=== PATIENT | male | born 1955 | race Caucasian/White ===

== ENCOUNTER 2017-07-24 15:20 | Inpatient (IN) | payer OTHER ==
[~2017-07-24] VITALS: Ht 177.8 cm; Wt 77.0 kg
[2017-07-24] VITALS (15 sets, daily range): BP systolic 69–165; BP diastolic 42–99; PULSE 90–131; RESP 14–31; TEMP 95.2–98.8; O2SAT 92–100
[2017-07-24] MEDS ORDERED: SUCCINYLCHOLINE CHLORIDE 200 MG/10 ML VIAL ONE (15:22)
[2017-07-24] MEDS ORDERED: ETOMIDATE 20 MG/10 ML VIAL ONE (15:23)
[2017-07-24] MEDS ORDERED: PROPOFOL 1000 MG/100 ML INJ 100 ML ONE (15:31)
[2017-07-24] MEDS ORDERED: SUCCINYLCHOLINE CHLORIDE 100 MG/5 ML SYRINGE IV PUSH ONE (15:45)
[2017-07-24] MEDS ORDERED: HEPARIN SODIUM - IV 10,000 UNITS/10 ML VIAL IV PUSH ONE (15:45)
[2017-07-24] MEDS ORDERED: HEPARIN-D5W 25,000 U/250 ML 250 ML IV PRN (15:45)
[2017-07-24] MEDS ORDERED: SODIUM CHLORIDE 0.9% FLUSH 10 ML FLUSH IVF PRN (15:45)
[2017-07-24] MEDS ORDERED: ETOMIDATE 20 MG/10 ML VIAL IV PUSH ONE (15:45)
--- NOTE | 2017-07-24 15:57 | RADRPT ---
EXAM DATE/TIME: 07/24/2017 15:41 [facility] COMPARISON: No previous studies available for comparison. INDICATIONS : Chest pain. MEDICAL HISTORY : None. SURGICAL HISTORY : None. ENCOUNTER: Initial ACUITY: 1 day PAIN SCORE: Non-responsive. LOCATION: Bilateral chest FINDINGS: A single view of the chest demonstrates endotracheal tube in good position. NG coiled in stomach. Mil d interstitial prominence in the lungs may represent mild edema with minimal basilar atelectasis. No significant effusion. No pneumothorax. CONCLUSION: 1. Endotracheal tube and nasogastric tube in good position. Mild edema pattern with basilar atelectas is. Weston Farrar MD on July 24, 2017 at 15:55 Board Certified Radiologist. This report was verified electronically.
[2017-07-24] MEDS ORDERED: SODIUM CHLOR 0.9% 1000 ML INJ 1,000 ML IV ONE ×4 (16:00→18:00)
[2017-07-24] MEDS ORDERED: AMIODARONE INJ 150 MG in DEXTROSE 5% IN WATER 100ML INJ 100 ML IV ONE ×2 (16:12)
[2017-07-24] MEDS ORDERED: MAGNESIUM OXIDE 400 MG TAB PO PRN (16:30)
[2017-07-24] MEDS ORDERED: LORazepam 2 MG/ML VIAL IV PUSH PRN (16:30)
[2017-07-24] MEDS ORDERED: POTASSIUM CHLORIDE 25 MEQ EFFERVESCENT TAB PO PRN (16:30)
[2017-07-24] MEDS ORDERED: MIDAZOLAM 100 MG/100 ML INJ 100 ML IV PRN (16:30)
[2017-07-24] MEDS ORDERED: MIDAZOLAM HCL 2 MG/2 ML VIAL IV PUSH ONE (16:30)
[2017-07-24] MEDS ORDERED: POTASSIUM PHOSPHATE INJ 30 MMOL in SODIUM CHLOR 0.9% 250 ML INJ 250 ML IV PRN (16:30)
[2017-07-24] MEDS ORDERED: POTASSIUM PHOSPHATE MONOBASIC 500 MG TAB PO PRN (16:30)
[2017-07-24] MEDS ORDERED: VECURONIUM BROMIDE 10 MG VIAL IV PUSH ONE (16:30)
[2017-07-24] MEDS ORDERED: busPIRone HCL 5 MG TAB NG PRN (16:30)
[2017-07-24] MEDS ORDERED: MAGNESIUM SULFATE INJ 4 GM in SODIUM CHLORIDE 0.9% INJ 92 ML IV PRN (16:30)
[2017-07-24] MEDS ORDERED: MISCELLANEOUS NURSING INFORMATION XX SCH (16:30)
[2017-07-24] MEDS ORDERED: CHLORHEXIDINE GLUCONATE 2 % 1 PACK (2 CLOTHS) TOP PRN (16:30)
[2017-07-24] MEDS ORDERED: ARTIFICIAL TEARS OPTH OINT 3.5 APPLIC/3.5 GM TUBO EACH EYE PRN (16:30)
[2017-07-24] MEDS ORDERED: SODIUM CHLORIDE 0.9% FLUSH 10 ML FLUSH IV FLUSH PRN (16:30)
[2017-07-24] MEDS ORDERED: POTASSIUM PHOSPHATE MONOBASIC 500 MG TAB PO/TUBE PRN (16:30)
[2017-07-24] MEDS ORDERED: SODIUM PHOSPHATE INJ 30 MMOL in SODIUM CHLOR 0.9% 250 ML INJ 240 ML IV PRN (16:30)
[2017-07-24] MEDS ORDERED: fentaNYL DRIP 250 ML IV PRN (16:30)
[2017-07-24] MEDS ORDERED: CISATRACURIUM BESYLATE 20 MG/10 ML VIAL IV PUSH ONE (16:30)
[2017-07-24] MEDS ORDERED: POTASSIUM CHLOR 40 MEQ PREMIX 100 ML IV PRN ×2 (16:30)
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
[2017-07-24 16:43] LABS: AUTOMATED NEUTROPHIL # 7.4 TH/MM3 (1.8-7.7); BASOPHIL # 0.1 TH/MM3 (0-0.2); BASOPHIL % 0.4 % (0.0-2.0); EOSINOPHIL # 0.3 TH/MM3 (0-0.4); EOSINOPHIL % 1.9 % (0.0-4.0); HEMATOCRIT 44.4 % (39.0-51.0); LYMPH % 46.4 % (9.0-44.0); MEAN CELL VOLUME 85.1 FL (80.0-100.0); MEAN CORPUSCULAR HEMOGLOBIN 27.5 PG (27.0-34.0); MEAN CORPUSCULAR HGB CONC 32.4 % (32.0-36.0); MONO % 8.6 % (0.0-8.0); NEUT % 42.7 % (16.0-70.0); PLATELET COUNT 191 TH/MM3 (150-450); RED BLOOD COUNT 5.22 MIL/MM3 (4.50-5.90); RED CELL DISTRIBUTION WIDTH 15.7 % (11.6-17.2); WHITE BLOOD COUNT 17.3 TH/MM3 (4.0-11.0)
[2017-07-24 16:46] LABS: HEMO FLAGS AUTO DIFF
[2017-07-24 16:49] LABS: APTT (PATIENT) 29.4 SEC (24.3-30.1); PROTHROMBIN TIME - PATIENT 11.5 SEC (9.8-11.6)
[2017-07-24 17:06] LABS: BANDS 2 % (0-6); BICARBONATE 16.1 MEQ/L (21.0-32.0); EOSINOPHILS 3 % (0-4); NEUTROPHIL # MANUAL DIFF 8.5 TH/MM3 (1.8-7.7); PLATELET ESTIMATE SMEAR NORMAL (NORMAL); PLATELET MORPHOLOGY NORMAL (NORMAL); POLYS (SEG NEUTROPHILS) 47 % (16-70); POTASSIUM 3.4 MEQ/L (3.5-5.1); SCAN/DIFF FINAL DIFF MANUAL; WBC DIFF SAMPLE 100
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
[2017-07-24 17:25] LABS: CKMB 74.7 NG/ML (0.5-3.6); INDIRECT BILIRUBIN 0.4 MG/DL (0.0-0.8); TOTAL BILIRUBIN ADULT 0.5 MG/DL (0.2-1.0)
[2017-07-24] MEDS ORDERED: ASPIRIN 81 MG CHEW TAB OG-TUBE ONE (17:30)
[2017-07-24] MEDS ORDERED: GLUCAGON 1 MG/ML VIAL IM/SQ PRN (17:30)
--- NOTE | 2017-07-24 17:40 | RADRPT ---
EXAM DATE/TIME: 07/24/2017 17:17 [facility] COMPARISON: No previous studies available for comparison. INDICATIONS : Unresponsive. RADIATION DOSE: 39.71 CTDIvol (mGy) MEDICAL HISTORY : Non-responsive. SURGICAL HISTORY : Non-responsive. ENCOUNTER: Initial ACUITY: 1 day PAIN SCALE: Non-responsive LOCATION: cranial TECHNIQUE: Multiple contiguous axial images were obtained of the head. Using automated exposure control and adj ustment of the mA and/or kV according to patient size, radiation dose was kept as low as reasonably a chievable to obtain optimal diagnostic quality images. DICOM format image data is available electro nically for review and comparison. FINDINGS: CEREBRUM: The ventricles are normal for age. No evidence of midline shift, mass lesion, hemorrhage or acute in farction. No extra-axial fluid collections are seen. POSTERIOR FOSSA: The cerebellum and brainstem are intact. The 4th ventricle is midline. The cerebellopontine angle i s unremarkable. EXTRACRANIAL: The visualized portion of the orbits is intact. Maxillary sinusitis. SKULL: The calvaria is intact. No evidence of skull fracture. CONCLUSION: 1. No acute intracranial abnormalities. Bilateral maxillary and ethmoid sinusitis. 2. Remote lacunar infarct right caudate nucleus. Weston Farrar MD on July 24, 2017 at 17:36 Board Certified Radiologist. This report was verified electronically.
[2017-07-24] MEDS: NOREPINEPHRINE INJ 4 MG in SODIUM CHLOR 0.9% 250 ML INJ 246 ML IV PRN (19:00)
[2017-07-24] MEDS: PROPOFOL 1000 MG/100 ML INJ 100 ML IV PRN ×2 (19:00→23:14)
--- NOTE | 2017-07-24 19:29 | MB ---
cc: JULIO CESAR GOODMAN M.D. DATE OF CONSULTATION: 07/24/2017. HISTORY OF PRESENT ILLNESS: Stewart is a 61-year-old gentleman who per the ER report was driving in his car and had a witnessed arrest with fairly rapid onset of CPR by a water treatment operator; however, he was rapidly intubated in the emergency room. His mental status was not determined prior to intubation and sedation. The length of time between arrest and CPR is indeterminate as well. A further review of systems is obviously unobtainable as the patient is currently intubated and unresponsive due to sedation. Per the emergency room notes, the patient received 3 to 5 minutes of bystander CPR and that was noted to happen immediately after arrest. He was found to be in ventricular fibrillation. He was defibrillated x3. He was noted to have agonal respirations in the emergency room. The family noted that he had seizure-like activity after becoming unresponsive. He was noted to "not have any symptoms whatsoever" prior to the arrest. PAST MEDICAL HISTORY: Per family: 1. History of hypertension. 2. Insulin-dependent diabetes mellitus. SOCIAL HISTORY: Denies tobacco use per family. ALLERGIES: None per family. MEDICATIONS GIVEN IN THE EMERGENCY ROOM: 1. Aspirin 81 milligrams per OG tube. 2. Heparin bolus and drip. 3. Insulin. 4. IV. 5. IV Fentanyl. 6. Potassium supplementation. 7. Magnesium supplementation IV. 8. Sodium phosphate and potassium phosphate supplementation. 9. Amiodarone IV drip and bolus. 10. Propofol drip. PHYSICAL EXAMINATION: VITAL SIGNS: Pulse is 101, respiratory rate 18, blood pressure 84/53. GENERAL: He is intubated and sedated. NECK: The neck is supple. No jugular venous distention. No bruits. CARDIOVASCULAR EXAM: S1 and S2. No murmurs, rubs or gallops. LUNGS: Decreased breath sounds at the bases bilaterally. ABDOMEN: The abdomen is soft, nontender and nondistended with positive bowel sounds. EXTREMITIES: No lower extremity edema. IMAGING STUDIES: Chest x-ray shows mild edema pattern and with basilar atelectasis, endotracheal tube and nasogastric tube in good position. Head CT shows no acute intracranial abnormalities. Bilateral maxillary and ethmoid sinusitis, remote lacunar infarct right caudate nucleus. LABORATORY DATA: White count 17.3, hemoglobin 14.4, hematocrit 44.4, platelet count 191,000. Sodium 136, potassium 3.4, chloride 101, bicarbonate 16.1, BUN 18, creatinine 1.36, glucose 231, AST 149, ALT 3. Total CK 777 with a CK-MB percent of 9.6. Troponin is 16.80. Albumin is 3.3. INR 1.0. EKGS: EKG shows sinus tachycardia at 121 beats per minute. Corrected Q-T interval is 0.29 milliseconds. There is 45 mm of upsloping S-T segment depression in leads V1, V2, V3, V4, V5. There is 1 to 2 mm of S-T segment elevation in lead I, lead V6. DIAGNOSIS: He has the following diagnoses: 1. Cardiac arrest. 2. Ventricular fibrillation. 3. STEMI versus NSTEMI. 4. Altered mental status. 5. Seizure. 6. Insulin-dependent diabetes mellitus. 7. History of CVA. 8. Hypokalemia. 9. Acute renal failure versus chronic renal insufficiency and/or both. 10. Hyperglycemia. 11. Elevated liver function tests. 12. Elevated white count. DISCUSSION: At this point in time, the patient's mental status is indeterminate. He did have [id number] cardiac arrest. The exact time between arrest and initiation of CPR is unknown, although is stated to be immediately. A fiberglass auto body repairer happened to be at the scene as soon as the family pulled the car over. He was noted to have agonal breathing; however. I have discussed this with the ER doctor, , and recommended retail key holder consult for consideration of hypothermia protocol. I agree with aspirin and heparin. The patient is currently hypotensive and beta blockers and TRACIE inhibitors are contraindicated. Statins are contraindicated due to the elevated liver enzymes, which I suspect is due to shock liver. It is also possible that his elevated cardiac enzymes are due to defibrillation. Will need to follow trends. Recommend neurology consult. At this point, would treat medically until we know his exact mental status and also a full neurologic workup. If the patient develops further hemodynamic instability and/or recurrent ventricular fibrillation, could consider high-risk catheter intervention. Julio Cesar Goodman MD AWMadonna/EHSAN Bautista: 07/24/2017/6:34 PM /7:16 PM
--- NOTE | 2017-07-24 19:58 | PD.PROCEDR ---
Procedure Note Procedure Centerline placement A time-out was completed verifying correct patient, procedure, site, positioning , and special equipment if applicable. The patient was placed in a dependent position appropriate for central line placement based on the vein to be cannulated. The patients right groin was prepped and draped in sterile fashion. 1% Lidocaine was used to anesthetize the surrounding skin area. A triple lumen 9-English Cordis catheter was introduced into the the common femoral vein using the Seldinger technique and under ultrasound guidance. The catheter was threaded smoothly over the guide wire and appropriate blood return was obtained. Each lumen of the catheter was evacuated of air and flushed with sterile saline. The catheter was then sutured in place to the skin and a sterile dressing applied. Perfusion to the extremity distal to the point of catheter insertion was checked and found to be adequate. Estimated Blood Loss: 1ml The patient tolerated the procedure well and there were no complications. Tyrone Diaz MD Jul 24, 2017 19:58
--- NOTE | 2017-07-24 19:59 | PD.PROCEDR ---
Procedure Note Procedure Arterial line placement A time-out was completed verifying correct patient, procedure, site, positioning , and special equipment if applicable. Allens test was performed to ensure adequate perfusion. The patients right groin was prepped and draped in sterile fashion. 1% Lidocaine was used to anesthetize the area. A 18G Arrow arterial line was introduced into the femoral artery. The catheter was threaded over the guide wire and the needle was removed with appropriate pulsatile blood return. The catheter was then sutured in place to the skin and a sterile dressing applied. Perfusion to the extremity distal to the point of catheter insertion was checked and found to be adequate. Estimated Blood Loss: 1ml The patient tolerated the procedure well and there were no complications. Tyrone Diaz MD Jul 24, 2017 19:59
[2017-07-24] MEDS: INSULIN ASPART SUPPLEMENTAL SCALE SQ SCH (20:00)
[2017-07-24] MEDS: CISATRACURIUM INJ 100 MG in SODIUM CHLOR 0.9% 250 ML INJ 240 ML IV PRN (20:42)
[2017-07-24] MEDS: AMIODARONE INJ 450 MG in DEXTROSE 5% IN WATE(EXCEL) INJ 241 ML IV PRN ×2 (20:42)
--- NOTE | 2017-07-24 20:50 | EKG ---
Date Performed: 07/24/2017 Time Performed: 15:40:01 PTAGE: 61 years EKG: SINUS TACHYCARDIA ST/T-WAVE ABNORMALITY, CONSIDER ANTEROLATERAL ISCHEMIA HIGH LATERAL AND L ATERAL ST ELEVATION, CONSIDER ACUTE INJURY PATTERN NONSPECIFIC INTRAVENTRICULAR CONDUCTION DELAY ABNO RMAL ECG NO PREVIOUS TRACING DOCTOR: León Marte Interpretating Date/Time 07/24/2017 20:48:51
[2017-07-24] MEDS: INSULIN DETEMIR 100 UNITS/ML VIAL SQ SCH (21:00)
[2017-07-24] MEDS: SODIUM CHLORIDE 0.9% FLUSH 10 ML FLUSH IV FLUSH SCH (21:00)
[2017-07-24] MEDS ORDERED: HEPARIN SODIUM - IV 10,000 UNITS/10 ML VIAL IV PUSH PRN (21:45)
[2017-07-24] MEDS: fentaNYL DRIP 250 ML IV PRN (22:28)
[2017-07-24] MEDS: POTASSIUM CHLOR 20 MEQ PREMIX 100 ML IV PRN (22:29)
[2017-07-24] MEDS: MEPERIDINE HCL 25 MG/ML VIAL IV PUSH PRN (23:02)
[2017-07-25] VITALS (13 sets, daily range): BP systolic 81–131; BP diastolic 45–86; PULSE 48–60; RESP 14; TEMP 90–92; O2SAT 95–99
[2017-07-25] MEDS: POTASSIUM CHLOR 20 MEQ PREMIX 100 ML IV PRN (00:10)
[2017-07-25 00:14] LABS: BICARBONATE 23.5 MEQ/L (21.0-32.0); MAGNESIUM 1.6 MG/DL (1.5-2.5); POTASSIUM 3.5 MEQ/L (3.5-5.1)
[2017-07-25 01:34] LABS: BLOOD, URINE MOD (NEG); GLUCOSE,URINE 1000 mg/dL (NEG); KETONE, URINE 10 mg/dL (NEG); MUCUS URINE FEW /lpf (OCC); NITRITE,URINE NEG (NEG); URINE COLOR LIGHT-YELLOW (YELLW/STRAW)
[2017-07-25] MEDS: MAGNESIUM SULFATE INJ 2 GM in SODIUM CHLORIDE 0.9% INJ 96 ML IV PRN (01:38)
[2017-07-25] MEDS: HEPARIN-D5W 25,000 U/250 ML 250 ML IV PRN ×2 (02:52→23:11)
[2017-07-25] MEDS: INSULIN ASPART SUPPLEMENTAL SCALE SQ SCH ×6 (04:00→20:00)
[2017-07-25] MEDS: CHLORHEXIDINE GLUCONATE 2 % 1 PACK (2 CLOTHS) TOP SCH (04:00)
[2017-07-25 06:32] LABS: BLOOD GAS BASE EXCESS -6.9 mmol/L (-2-2); BLOOD GAS CARBOXYHEMOGLOBIN 7.6 % (0-4); BLOOD GAS HCO3 19 mmol/L (22-26); BLOOD GAS PCO2 41 mmHg (38-42); BLOOD GAS PO2 269 mmHg (61-120)
[2017-07-25 06:33] LABS: BLOOD GAS METHEMOGLOBIN 0.8 % (0-2); BLOOD GAS O2 HGB SATURATION 91 % (90-100); BLOOD GAS OXYGEN CONTENT 18.4 Vol % (12.0-20.0); BLOOD GAS TOTAL HGB 13.9 G/DL (12.0-16.0)
[2017-07-25 06:35] LABS: FIO2 100 %; TEMP CORR TO 98.6
[2017-07-25] MEDS: PROPOFOL 1000 MG/100 ML INJ 100 ML IV PRN ×3 (06:48→23:09)
[2017-07-25 07:15] LABS: ANION GAP 7 MEQ/L (5-15); BICARBONATE 21.1 MEQ/L (21.0-32.0); BLOOD UREA NITROGEN 21 MG/DL (7-18); CHLORIDE 107 MEQ/L (98-107); CREATINE KINASE 1902 U/L (39-308); GLOMERULAR FILTRATION RATE 112 ML/MIN (>89); POTASSIUM 4.8 MEQ/L (3.5-5.1); SODIUM (NA) 135 MEQ/L (136-145)
[2017-07-25] MEDS: SODIUM CHLORIDE 0.9% FLUSH 10 ML FLUSH IV FLUSH SCH ×2 (07:31→20:52)
[2017-07-25 07:46] LABS: CKMB 209.6 NG/ML (0.5-3.6)
[2017-07-25] MEDS: INSULIN DETEMIR 100 UNITS/ML VIAL SQ SCH ×2 (08:37→20:51)
[2017-07-25] MEDS: AMIODARONE INJ 450 MG in DEXTROSE 5% IN WATE(EXCEL) INJ 241 ML IV PRN ×4 (08:37→23:13)
[2017-07-25] MEDS: ASPIRIN 81 MG CHEW TAB OG-TUBE SCH (08:37)
[2017-07-25 09:01] LABS: APTT (PATIENT) 34.1 SEC (24.3-30.1)
[2017-07-25] MEDS: CISATRACURIUM INJ 100 MG in SODIUM CHLOR 0.9% 250 ML INJ 240 ML IV PRN (09:02)
[2017-07-25] MEDS: HEPARIN SODIUM - IV 10,000 UNITS/10 ML VIAL IV PUSH PRN ×3 (09:34→20:49)
[2017-07-25 13:17] LABS: BICARBONATE 19.6 MEQ/L (21.0-32.0); MAGNESIUM 1.8 MG/DL (1.5-2.5); POTASSIUM 4.7 MEQ/L (3.5-5.1)
[2017-07-25 13:33] LABS: CALCIUM-PROTEIN CORRECTED 7.5 MG/DL (8.5-10.1)
--- NOTE | 2017-07-25 13:47 | PD.CARD.PN ---
Subjective Subjective Remarks intubated, sedated Objective Medications Current Medications Medications (Trade) Dose Ordered Sig/Laxmi Route Start Time Stop Time Status Last Admin Propofol 100 ml @ 0 mls/hr TITRATE PRN IV 07/24/17 15:45 07/25/17 06:48 (Heparin Inj) 5,000 units UNSCH PRN IV PUSH 07/24/17 21:45 (Heparin Inj) 2,500 units UNSCH PRN IV PUSH 07/24/17 21:45 07/25/17 09:34 Amiodarone HCl 450 mg/Dextrose 250 ml @ 33.33 mls/ hr Q7H31M PRN IV 07/24/17 16:22 07/25/17 08:37 Heparin Sodium/ Dextrose 250 ml @ 9 mls/hr TITRATE PRN IV 07/24/17 16:45 07/25/17 02:52 (Ativan Inj) 1 mg Q1H PRN IV PUSH 07/24/17 16:30 Midazolam HCl 100 ml @ 2 mls/hr TITRATE PRN IV 07/24/17 16:30 Fentanyl Citrate 250 ml @ 5 mls/hr TITRATE PRN IV 07/24/17 16:30 07/24/17 22:28 (Demerol Inj) 25 mg Q2H PRN IV PUSH 07/24/17 16:30 07/24/17 23:02 (Buspar) 15 mg BID PRN NG 07/24/17 16:30 Cisatracurium Besylate 100 mg/ Sodium Chloride 250 ml @ 37.12 mls/ hr TITRATE PRN IV 07/24/17 17:00 07/25/17 09:02 (Lacrilube Opht Oint) 1 applic Q4H PRN EACH EYE 07/24/17 16:30 (NS Flush) 2 ml BID IV FLUSH 07/24/17 21:00 07/24/17 21:00 (NS Flush) 2 ml UNSCH PRN IV FLUSH 07/24/17 16:30 Miscellaneous Information 0 ml @ 0 mls/hr UNSCH IV 07/24/17 16:30 Norepinephrine Bitartrate 4 mg/ Sodium Chloride 250 ml @ 7.5 mls/hr TITRATE PRN IV 07/24/17 17:00 07/24/17 19:00 Miscellaneous Information 1 Q361D XX 07/24/17 16:30 (Chlorhexidine 2% Cloth) 3 pack Taper DAILY@04 TOP 07/25/17 04:00 07/21/18 03:59 07/25/17 04:00 (Chlorhexidine 2% Cloth) 3 pack UNSCH PRN TOP 07/24/17 16:30 Potassium Chloride 100 ml @ 50 mls/hr Q2H PRN IV 07/24/17 16:30 Potassium Chloride 100 ml @ 50 mls/hr Q2H PRN IV 07/24/17 16:30 (K-Lyte Cl Eff) 50 meq UNSCH PRN PO 07/24/17 16:30 Potassium Chloride 100 ml @ 25 mls/hr UNSCH PRN IV 07/24/17 16:30 Potassium Chloride 100 ml @ 50 mls/hr Q2H PRN IV 07/24/17 16:30 07/25/17 00:10 Magnesium Sulfate 4 gm/Sodium Chloride 100 ml @ 50 mls/hr UNSCH PRN IV 07/24/17 16:30 (Mag-Ox) 800 mg UNSCH PRN PO 07/24/17 16:30 Magnesium Sulfate 2 gm/Sodium Chloride 100 ml @ 50 mls/hr UNSCH PRN IV 07/24/17 16:30 07/25/17 01:38 (K-Phos) 2,000 mg Q4H PRN PO 07/24/17 16:30 Sodium Phosphate 30 mmol/Sodium Chloride 250 ml @ 42 mls/hr UNSCH PRN IV 07/24/17 16:30 (K-Phos) 2,000 mg UNSCH PRN PO/TUBE 07/24/17 16:30 Potassium Phosphate 30 mmol/ Sodium Chloride 260 ml @ 42 mls/hr UNSCH PRN IV 07/24/17 16:30 (Aspirin Chew) 81 mg DAILY OG-TUBE 07/25/17 09:00 07/25/17 08:37 (Levemir Inj) 5 units Q12HR SQ 07/24/17 21:00 07/25/17 08:37 (NovoLOG SUPPLEMENTAL SCALE) 1 Q4HR SQ 07/24/17 20:00 (D50w (Vial) Inj) 25 ml UNSCH PRN IV 07/24/17 17:30 (Glucagon Inj) 1 mg UNSCH PRN IM/SQ 07/24/17 17:30 Vital Signs / I&O Vital Signs Date Time Temp Pulse Resp B/P (MAP) Pulse Ox O2 Delivery O2 Flow Rate FiO2 07/25/17 11:00 90.2 59 14 123/86 (98) 96 131/70 (90) 07/25/17 11:00 40 07/25/17 11:00 57 07/25/17 11:00 96 Mechanical Ventilator 40 07/25/17 10:31 95 40 07/25/17 08:37 63 119/67 07/25/17 07:55 95 40 07/25/17 07:00 90.4 59 14 104/77 (86) 95 108/61 (77) 07/25/17 07:00 95 Mechanical Ventilator 40 07/25/17 07:00 40 07/25/17 07:00 57 07/25/17 04:10 97 40 07/25/17 03:00 90.0 60 14 93/73 (80) 95 103/63 (76) 07/25/17 03:00 58 07/25/17 03:00 40 07/25/17 03:00 95 Mechanical Ventilator 40 07/25/17 02:30 62 119/69 07/25/17 00:58 97 40 07/24/17 23:00 40 07/24/17 23:00 95.2 93 14 136/85 (102) 94 165/85 (111) 07/24/17 23:00 94 Mechanical Ventilator 40 07/24/17 23:00 90 07/24/17 22:03 99 40 07/24/17 20:42 104 120/82 07/24/17 20:40 101 123/77 07/24/17 20:30 94 40 07/24/17 20:20 110/75 07/24/17 19:45 134/82 07/24/17 19:20 70/52 07/24/17 19:10 69/52 07/24/17 19:00 40 07/24/17 19:00 98 Mechanical Ventilator 40 07/24/17 19:00 90 07/24/17 19:00 98.4 99 14 69/49 (56) 98 07/24/17 19:00 99 69/49 07/24/17 18:30 96 40 07/24/17 18:10 99 100 07/24/17 17:20 103 111/68 (82) 95 07/24/17 17:16 104 97/68 (78) 97 07/24/17 17:08 101 88/55 (66) 97 07/24/17 16:30 101 18 84/53 (63) 100 Ventilator 07/24/17 15:50 114 75/42 (53) 95 07/24/17 15:42 99 40 07/24/17 15:40 100 40 07/24/17 15:35 Ventilator 07/24/17 15:28 127 31 156/99 (118) 92 07/24/17 15:27 100 07/24/17 15:20 98.8 131 16 110/62 (78) 95 I/O 07/24/17 07/24/17 07/24/17 07/25/17 07/25/17 07/25/17 07:00 15:00 23:00 07:00 15:00 23:00 Intake Total 91 ml 1819 ml Output Total 2115 ml Balance 91 ml -296 ml Intake IV Total 91 ml 1819 ml Output Urine Total 2115 ml # Bowel Movements 2 Laboratory GENERAL: SKIN: Warm and dry. HEAD: Normocephalic. EYES: No scleral icterus. No injection or drainage. NECK: Supple, trachea midline. No JVD or lymphadenopathy. CARDIOVASCULAR: Regular rate and rhythm without murmurs, gallops, or rubs. RESPIRATORY: Breath sounds equal bilaterally. No accessory muscle use. GASTROINTESTINAL: Abdomen soft, non-tender, nondistended. MUSCULOSKELETAL: No cyanosis, or edema. BACK: Nontender without obvious deformity. No CVA tenderness. Laboratory Tests Test 07/24/17 16:00 07/24/17 16:30 07/24/17 21:54 07/24/17 23:37 White Blood Count 17.3 TH/MM3 Red Blood Count 5.22 MIL/MM3 Hemoglobin 14.4 GM/DL Hematocrit 44.4 % Mean Corpuscular Volume 85.1 FL Mean Corpuscular Hemoglobin 27.5 PG Mean Corpuscular Hemoglobin Concent 32.4 % Red Cell Distribution Width 15.7 % Platelet Count 191 TH/MM3 Mean Platelet Volume 9.2 FL Neutrophils (%) (Auto) 42.7 % Lymphocytes (%) (Auto) 46.4 % Monocytes (%) (Auto) 8.6 % Eosinophils (%) (Auto) 1.9 % Basophils (%) (Auto) 0.4 % Neutrophils # (Auto) 7.4 TH/MM3 Lymphocytes # (Auto) 8.0 TH/MM3 Monocytes # (Auto) 1.5 TH/MM3 Eosinophils # (Auto) 0.3 TH/MM3 Basophils # (Auto) 0.1 TH/MM3 CBC Comment AUTO DIFF Differential Total Cells Counted 100 Neutrophils % (Manual) 47 % Band Neutrophils % 2 % Lymphocytes % 42 % Monocytes % 6 % Eosinophils % 3 % Neutrophils # (Manual) 8.5 TH/MM3 Differential Comment FINAL DIFF MANUAL Platelet Estimate NORMAL Platelet Morphology Comment NORMAL Red Cell Morphology Comment NORMAL Prothrombin Time 11.5 SEC Prothromb Time International Ratio 1.0 RATIO Activated Partial Thromboplast Time 29.4 SEC Blood Urea Nitrogen 18 MG/DL 22 MG/DL Creatinine 1.36 MG/DL 0.83 MG/DL Random Glucose 231 MG/DL 136 MG/DL Total Protein 6.5 GM/DL Albumin 3.3 GM/DL Calcium Level 8.5 MG/DL 8.0 MG/DL Magnesium Level 2.0 MG/DL 1.6 MG/DL Alkaline Phosphatase 101 U/L Aspartate Amino Transf (AST/SGOT) 149 U/L Alanine Aminotransferase (ALT/SGPT) 83 U/L Total Bilirubin 0.5 MG/DL Direct Bilirubin 0.1 MG/DL Sodium Level 136 MEQ/L 138 MEQ/L Potassium Level 3.4 MEQ/L 3.5 MEQ/L Chloride Level 101 MEQ/L 106 MEQ/L Carbon Dioxide Level 16.1 MEQ/L 23.5 MEQ/L Anion Gap 19 MEQ/L 9 MEQ/L Estimat Glomerular Filtration Rate 54 ML/MIN 95 ML/MIN Indirect Bilirubin 0.4 MG/DL Total Creatine Kinase 777 U/L Creatine Kinase MB 74.7 NG/ML Creatine Kinase MB % 9.6 % Troponin I 16.80 NG/ML Blood Gas Puncture Site Blood Gas Patient Temperature 98.6 Blood Gas HCO3 19 mmol/L Blood Gas Base Excess -6.9 mmol/L Blood Gas Oxygen Saturation 91 % Arterial Blood pH 7.28 Arterial Blood Partial Pressure CO2 41 mmHg Arterial Blood Partial Pressure O2 269 mmHg Arterial Blood Oxygen Content 18.4 Vol % Arterial Blood Carboxyhemoglobin 7.6 % Arterial Blood Methemoglobin 0.8 % Blood Gas Hemoglobin 13.9 G/DL Blood Gas Inspired Oxygen 100 % Lactic Acid Level 0.8 mmol/L Phosphorus Level 2.8 MG/DL Test 07/25/17 01:02 07/25/17 01:05 07/25/17 06:10 07/25/17 08:25 Nasal Screen MRSA (PCR) MRSA DETECTED Urine Color LIGHT-YELLOW Urine Turbidity CLEAR Urine pH 5.0 Urine Specific [place] 1.015 Urine Protein NEG mg/dL Urine Glucose (UA) 1000 mg/dL Urine Ketones 10 mg/dL Urine Occult Blood MOD Urine Nitrite NEG Urine Bilirubin NEG Urine Urobilinogen LESS THAN 2.0 MG/DL Urine Leukocyte Esterase NEG Urine RBC 1 /hpf Urine WBC LESS THAN 1 /hpf Urine Mucus FEW /lpf Urine Opiates Screen NEG Urine Barbiturates Screen NEG Urine Amphetamines Screen NEG Urine Benzodiazepines Screen NEG Urine Cocaine Screen POS Urine Cannabinoids Screen NEG Blood Urea Nitrogen 21 MG/DL Creatinine 0.72 MG/DL Random Glucose 148 MG/DL Calcium Level 7.6 MG/DL Magnesium Level 2.0 MG/DL Sodium Level 135 MEQ/L Potassium Level 4.8 MEQ/L Chloride Level 107 MEQ/L Carbon Dioxide Level 21.1 MEQ/L Anion Gap 7 MEQ/L Estimat Glomerular Filtration Rate 112 ML/MIN Total Creatine Kinase 1902 U/L Creatine Kinase MB 209.6 NG/ML Creatine Kinase MB % 11.0 % Troponin I GREATER THAN 40.00 NG/ML Activated Partial Thromboplast Time 34.1 SEC Test 07/25/17 12:15 Blood Urea Nitrogen 21 MG/DL Creatinine 0.70 MG/DL Random Glucose 131 MG/DL Total Protein 6.5 GM/DL Calcium Level 7.2 MG/DL Magnesium Level 1.8 MG/DL Sodium Level 136 MEQ/L Potassium Level 4.7 MEQ/L Chloride Level 107 MEQ/L Carbon Dioxide Level 19.6 MEQ/L Anion Gap 9 MEQ/L Estimat Glomerular Filtration Rate 115 ML/MIN Protein Corrected Calcium 7.5 MG/DL Imaging Last [address] 07/24/17 1542 Signed Impressions: Service Date/Time: Monday, July 24, 2017 17:17 - CONCLUSION: 1. No acute intracranial abnormalities. Bilateral maxillary and ethmoid sinusitis. 2. Remote lacunar infarct right caudate nucleus. Weston Farrar MD Chest X-Ray 07/24/17 1531 Signed Impressions: Service Date/Time: Monday, July 24, 2017 15:41 - CONCLUSION: 1. Endotracheal tube and nasogastric tube in good position. Mild edema pattern with basilar atelectasis. Weston Farrar MD Assessment and Plan Problem List: (1) Cardiac arrest ICD Codes: I46.9 - Cardiac arrest, cause unspecified Status: Acute (2) Seizure disorder ICD Codes: G40.909 - Epilepsy, unspecified, not intractable, without status epilepticus (3) Ventricular fibrillation ICD Codes: I49.01 - Ventricular fibrillation (4) NSTEMI (non-ST elevated myocardial infarction) ICD Codes: I21.4 - Non-ST elevation (NSTEMI) myocardial infarction Assessment and Plan 1.) Cardiac arrest - uncertain neurologic status, hemodyamically and electrically stable since admit, on cooling protocol, continue aspirin, iv heparin, f/u neuro recs, 2d echo Julio Cesar Rankin MD Jul 25, 2017 13:47
--- NOTE | 2017-07-25 14:11 | HHI.CCPN ---
Subjective Remarks/Hospital Course 07/24: 61-year-old male with medical history significant for hypertension, insulin-dependent diabetes mellitus who was in his usual state of health today. While being driven by a family member he suddenly became unresponsive with a seizure. He was taken out of his car and had bystander CPR for 3-5 minutes by supervisor inspection department who happened to be around. On EMS arrival patient was noted to be in V. fib arrest. He underwent DC shock 3 following which she had return of spontaneous circulation. He was having spontaneous respirations which were agonal and he is brought to the ER by EMS. Patient was comatose with GCS of 3 per documentation and did not appear to be protecting his airway hence was intubated for airway protection and placed on mechanical ventilation in the ER. He did receive it, date and succinylcholine for intubation. He was subsequently initiated on propofol for sedation as he was fighting the ventilator however dropped his blood pressure hence propofol was held. Dr. Rankin from cardiology was contacted regarding V. fib arrest and did not want to proceed with cardiac catheterization at that time. Critical care medicine was contacted to see if patient was a candidate for therapeutic hypothermia. I came to the ER and evaluated the patient immediately on being notified. His labs and head CT were pending at the time of my evaluation. Patient was comatose off propofol not responding to painful stimuli intubated on mechanical ventilation. Per family patient was absolutely asymptomatic prior to becoming unresponsive. History was obtained by reviewing records and discussion with ER physician. 07/25: Patient remains on therapeutic hypothermia protocol. Urine drug screen resulted at 1 AM and was positive for cocaine though family had denied any drug use to ER physician. Objective Vital Signs Date Time Temp Pulse Resp B/P (MAP) Pulse Ox O2 Delivery O2 Flow Rate FiO2 07/25/17 11:00 90.2 59 14 123/86 (98) 96 131/70 (90) 07/25/17 11:00 40 07/25/17 11:00 Mechanical Ventilator Intake and Output 07/25/17 07/25/17 07/26/17 08:00 16:00 00:00 Intake Total 1757 ml Output Total 2115 ml Balance -358 ml Result Diagram: 07/24/17 1600 07/25/17 1215 Other Results Laboratory Tests Test 07/24/17 16:30 Blood Gas Puncture Site Blood Gas Patient Temperature 98.6 Blood Gas HCO3 19 mmol/L (22-26) Blood Gas Base Excess -6.9 mmol/L (-2-2) Blood Gas Oxygen Saturation 91 % (90-100) Arterial Blood pH 7.28 (7.380-7.420) Arterial Blood Partial Pressure CO2 41 mmHg (38-42) Arterial Blood Partial Pressure O2 269 mmHg (61-120) Arterial Blood Oxygen Content 18.4 Vol % (12.0-20.0) Arterial Blood Carboxyhemoglobin 7.6 % (0-4) Arterial Blood Methemoglobin 0.8 % (0-2) Blood Gas Hemoglobin 13.9 G/DL (12.0-16.0) Blood Gas Inspired Oxygen 100 % Imaging Chest x-ray portable which was personally reviewed: ET tube above albetr, lung danielle appear clear with no obvious infiltrates. Head CT pending at the time of this dictation Objective Remarks HEENT/ Neuro: Sedated, orally intubated on neuromuscular blockade, pupils 3 mm bilaterally sluggishly reacting to light, orally intubated, no pallor, no icterus, tongue/ mucosa moist Neck: No JVD Chest/Pulm: on mech vent, good air entry bilaterally, no wheezing or crackles CVS: S1-S2 regular, no murmur GI/abdomen: soft, nontender, bowel sounds sluggish Extremities: Cool bilaterally, no edema Urinary Catheter: Yes Assessment to: Continue A/P Assessment and Plan 61-year-old male with: Out of hospital V. fib arrest status post CPR Non-ST elevation IL: Possibly related to cocaine use Acute respiratory failure on mechanical ventilation Hypotension Insulin-dependent diabetes mellitus Encephalopathy Cocaine positive Plan: Neuro: Continue therapeutic hypothermia protocol in view of concern for anoxic encephalopathy. Follow neuro checks. Follow therapeutic hypothermia protocol. Propofol/fentanyl for sedation as needed. Nimbex for neuromuscular blockade as needed to prevent shivering. Patient tested positive for cocaine. Cardiovascular: Receiving 1 L normal saline bolus in the ER for hypotension. Levophed for pressor support if needed. Troponin greater than 40. Cardiology consult with Dr. Rankin. ED physician is already spoken with Dr. Rankin following V. fib arrest and he is not planning cardiac catheterization at this time. If head CT negative for bleed will initiate aspirin and continue heparin gtt, ASA. Continue amiodarone gtt. Pulmonary: Continue mechanical ventilation, vent bundle, bronchodilators as needed. GI/liver: Nothing by mouth for now. OG tube to be placed to low intermittent wall suction. Renal/: IV hydration, strict intake output, monitor and replete electro lites , follow BUN creatinine. ID: No indication for antibiotics at this time. Heme: Follow CBC and coags. Endocrine: Continue Levemir 5 units subcutaneously every 12 hourly along with sliding scale insulin in view of insulin-dependent diabetes mellitus. If needed we will initiate insulin drip for glycemic control. Prophylaxis: Pepcid/SCDs. Anticoagulation with heparin. Condition critical. Status post cardiac arrest with concern for anoxic encephalopathy on therapeutic hypothermia protocol with non-ST elevation IL, cocaine positive. Time spent on critical care excluding procedures: 35 minutes Rip Curtis MD Jul 25, 2017 14:11
[2017-07-25] MEDS: NOREPINEPHRINE INJ 4 MG in SODIUM CHLOR 0.9% 250 ML INJ 246 ML IV PRN ×2 (15:00→21:03)
[2017-07-25 15:36] LABS: APTT (PATIENT) 34.2 SEC (24.3-30.1)
[2017-07-25 18:59] LABS: AUTOMATED NEUTROPHIL # 12.8 TH/MM3 (1.8-7.7); BASOPHIL # 0.1 TH/MM3 (0-0.2); BASOPHIL % 0.4 % (0.0-2.0); EOSINOPHIL % 0.2 % (0.0-4.0); HEMATOCRIT 42.2 % (39.0-51.0); HEMO FLAGS DIFF FINAL; LYMPHOCYTE # 1.1 TH/MM3 (1.0-4.8); MEAN CELL VOLUME 83.7 FL (80.0-100.0); MEAN CORPUSCULAR HEMOGLOBIN 27.5 PG (27.0-34.0); MEAN CORPUSCULAR HGB CONC 32.9 % (32.0-36.0); MONO % 9.1 % (0.0-8.0); NEUT % 83.3 % (16.0-70.0); PLATELET COUNT 209 TH/MM3 (150-450); RED BLOOD COUNT 5.04 MIL/MM3 (4.50-5.90); RED CELL DISTRIBUTION WIDTH 16.1 % (11.6-17.2); WHITE BLOOD COUNT 15.4 TH/MM3 (4.0-11.0)
[2017-07-25 19:28] LABS: BICARBONATE 18.9 MEQ/L (21.0-32.0); MAGNESIUM 1.8 MG/DL (1.5-2.5); POTASSIUM 4.7 MEQ/L (3.5-5.1)
[2017-07-25 19:50] LABS: CALCIUM-PROTEIN CORRECTED 7.6 MG/DL (8.5-10.1)
[2017-07-25] MEDS: MEPERIDINE HCL 25 MG/ML VIAL IV PUSH PRN (20:51)
--- NOTE | 2017-07-25 21:02 | MB ---
cc: PROSPER KEMP MD DATE OF CONSULTATION: 07/25/2017 REASON FOR CONSULTATION: IMS status post cardiac arrest. HISTORY OF PRESENT ILLNESS Mr. Esparza is a 61-year-old male who was intubated and sedated during the encounter, thus medical history is obtained from registered nurse and medical records. He has past medical history of hypertension, insulin- dependent diabetes mellitus. He was witnessed by a family member to become unresponsive with a seizure. CPR was instituted by a bystander. Upon EMS arrival the patient was in ventricular fibrillation arrest. He was resuscitated with return of spontaneous circulation and breathing was agonal. He was brought to [facility] Emergency Room, was comatose and was unable to protect his airway and he was intubated and ventilated. Neurology is consulted to assess in the current neurologic status. The patient is currently undergoing therapeutic hypothermia protocol and of note UDS was positive for cocaine, though family denied drug abuse. REVIEW OF SYSTEMS Unable to obtain, however, according to the medical record review 12-point review of systems is negative except for what is stated in the HPI. PAST MEDICAL HISTORY 1. Hypertension 2. Insulin dependent diabetes mellitus. SOCIAL HISTORY As per family denies tobacco and drug abuse. ALLERGIES As per medical record review, none. FAMILY HISTORY Noncontributory ALLERGIES No known allergies. PAST SURGICAL HISTORY Unavailable. REPORTED MEDICATIONS: Medications to be reviewed in the medical records. PHYSICAL EXAMINATION The patient is intubated and sedated. HEENT: Atraumatic, normocephalic. Pupils 3 mm bilaterally, reacting to light. Neck: No JVD. Respiratory: Mechanical ventilator. Good air entry. No wheezes. Cardiovascular: Regular rate and rhythm. GI: Soft abdomen. Extremities: No edema. No cyanosis. Neurologic: Intubated, sedated. Pupils 3 mm sluggishly reactive to light. No gaze deviation. Plantars bilateral mute. LABORATORY DATA White blood cells 70.3, hemoglobin 14.4, platelet 191. Sodium 137, potassium 4.7, anion gap 10, BUN 23, creatinine 0.85, lactic acid 0.8, random glucose 164 , calcium 7, magnesium 1.8. CK 1902, troponin greater than 40, total protein 6 , INR 1. UDS positive for cocaine. 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 DIAGNOSTIC IMPRESSION 1. Encephalopathy. Possible etiology is hypoxic/metabolic encephalopathy secondary to cardiac arrest, status post V-fib arrest, status post CPR. 2. Acute respiratory failure, currently on mechanical ventilation. 3. Insulin-dependent diabetes mellitus. PLAN: - Neuro checks q. one hourly. - Continue supportive medical therapy and therapeutic hypothermia protocol. - At this time with the patient is sedated, paralyzed and intubated, thus, making the neurological assessment less accurate. Further neurological evaluation can be done after completion of the hypothermia protocol which should be tonight at midnight and if the patient does not show signs of neurologic recovery, then further neurologic assessment, evaluation and workup may be needed. - Please call for questions. Thank you for the opportunity to participate in the care of your patient. MD LUANA Carmona/CONNIE /8:29 PM /8:44 PM CASSIE
[2017-07-26] VITALS (12 sets, daily range): BP systolic 104–135; BP diastolic 58–79; PULSE 60–95; RESP 12–14; TEMP 94–99; O2SAT 89–99
[2017-07-26] MEDS: INSULIN ASPART SUPPLEMENTAL SCALE SQ SCH ×6 (00:27→20:00)
[2017-07-26] MEDS: MEPERIDINE HCL 25 MG/ML VIAL IV PUSH PRN ×3 (00:28→10:47)
[2017-07-26 01:26] LABS: BICARBONATE 18.6 MEQ/L (21.0-32.0); MAGNESIUM 1.6 MG/DL (1.5-2.5); POTASSIUM 4.3 MEQ/L (3.5-5.1)
[2017-07-26 01:39] LABS: CALCIUM-PROTEIN CORRECTED 7.8 MG/DL (8.5-10.1)
[2017-07-26] MEDS: MAGNESIUM SULFATE INJ 2 GM in SODIUM CHLORIDE 0.9% INJ 96 ML IV PRN (02:23)
[2017-07-26] MEDS: CHLORHEXIDINE GLUCONATE 2 % 1 PACK (2 CLOTHS) TOP SCH (04:00)
[2017-07-26] MEDS: fentaNYL DRIP 250 ML IV PRN (04:08)
[2017-07-26 04:13] LABS: AUTOMATED NEUTROPHIL # 14.4 TH/MM3 (1.8-7.7); BASOPHIL % 0.3 % (0.0-2.0); EOSINOPHIL % 0.1 % (0.0-4.0); HEMATOCRIT 42.6 % (39.0-51.0); HEMO FLAGS DIFF FINAL; LYMPH % 5.7 % (9.0-44.0); MEAN CELL VOLUME 83.2 FL (80.0-100.0); MEAN CORPUSCULAR HEMOGLOBIN 26.8 PG (27.0-34.0); MEAN CORPUSCULAR HGB CONC 32.2 % (32.0-36.0); MONO % 7.5 % (0.0-8.0); NEUT % 86.4 % (16.0-70.0); PLATELET COUNT 207 TH/MM3 (150-450); RED BLOOD COUNT 5.13 MIL/MM3 (4.50-5.90); RED CELL DISTRIBUTION WIDTH 16.2 % (11.6-17.2); WHITE BLOOD COUNT 16.7 TH/MM3 (4.0-11.0)
[2017-07-26] MEDS: NOREPINEPHRINE INJ 4 MG in SODIUM CHLOR 0.9% 250 ML INJ 246 ML IV PRN (04:13)
[2017-07-26 04:19] LABS: APTT (PATIENT) 31.5 SEC (24.3-30.1)
[2017-07-26 04:48] LABS: BICARBONATE 20.5 MEQ/L (21.0-32.0); CALCIUM-PROTEIN CORRECTED 7.5 MG/DL (8.5-10.1); TOTAL BILIRUBIN ADULT 0.5 MG/DL (0.2-1.0)
[2017-07-26] MEDS: PROPOFOL 1000 MG/100 ML INJ 100 ML IV PRN ×2 (05:01→08:51)
[2017-07-26] MEDS: HEPARIN SODIUM - IV 10,000 UNITS/10 ML VIAL IV PUSH PRN ×2 (05:21→12:40)
--- NOTE | 2017-07-26 05:29 | RADRPT ---
EXAM DATE/TIME: 07/26/2017 03:53 [place] COMPARISON: CHEST SINGLE AP, July 24, 2017, 15:41. INDICATIONS : Short of breath. MEDICAL HISTORY : None. SURGICAL HISTORY : None. ENCOUNTER: Initial ACUITY: 1 day PAIN SCORE: 0/10 LOCATION: Bilateral chest FINDINGS: There is some motion during the seen throughout the study. ET tube tip is 3.9 cm from the albert. The NG tube is directed into the stomach. There some mild increased density in the right upper lung. A s ignificant effusion is not seen. There is a tube seen over the medial right upper abdomen which could be central in place from the femoral approach. CONCLUSION: Right upper lobe mild consolidation or atelectasis. Hipolito Strickland MD on July 26, 2017 at 5:25 Board Certified Radiologist. This report was verified electronically.
[2017-07-26] MEDS ORDERED: NOREPINEPHRINE INJ 4 MG in SODIUM CHLOR 0.9% 250 ML INJ 246 ML IV PRN (06:15)
[2017-07-26] MEDS: ASPIRIN 81 MG CHEW TAB OG-TUBE SCH (08:50)
[2017-07-26] MEDS: INSULIN DETEMIR 100 UNITS/ML VIAL SQ SCH ×2 (09:00→21:00)
[2017-07-26] MEDS: SODIUM CHLORIDE 0.9% FLUSH 10 ML FLUSH IV FLUSH SCH ×2 (09:00→21:09)
[2017-07-26] MEDS ORDERED: methylPREDNISolone SOD SUCC 125 MG/2 ML VIAL ONE (10:21)
[2017-07-26] MEDS ORDERED: methylPREDNISolone SOD SUCC 125 MG/2 ML VIAL IV PUSH ONE (10:45)
[2017-07-26] MEDS: DEXTROSE 50% IN WATER 50 ML VIAL(D50) IV PRN ×2 (11:41→11:59)
[2017-07-26 12:17] LABS: APTT (PATIENT) 34.5 SEC (24.3-30.1)
[2017-07-26] MEDS: HEPARIN-D5W 25,000 U/250 ML 250 ML IV PRN ×2 (12:36→15:25)
[2017-07-26] MEDS ORDERED: RESP: ALBUTEROL 2.5 MG/IPRATROPIUM 0.5 MG NEB (PRN) NEB (12:45)
[2017-07-26] MEDS ORDERED: BUMETANIDE INJ 1 MG/4 ML VIAL IV PUSH STA (12:47)
--- NOTE | 2017-07-26 13:11 | HHI.CCPN ---
Subjective Remarks/Hospital Course 07/24: 61-year-old male with medical history significant for hypertension, insulin-dependent diabetes mellitus who was in his usual state of health today. While being driven by a family member he suddenly became unresponsive with a seizure. He was taken out of his car and had bystander CPR for 3-5 minutes by safety teacher who happened to be around. On EMS arrival patient was noted to be in V. fib arrest. He underwent DC shock 3 following which she had return of spontaneous circulation. He was having spontaneous respirations which were agonal and he is brought to the ER by EMS. Patient was comatose with GCS of 3 per documentation and did not appear to be protecting his airway hence was intubated for airway protection and placed on mechanical ventilation in the ER. He did receive it, date and succinylcholine for intubation. He was subsequently initiated on propofol for sedation as he was fighting the ventilator however dropped his blood pressure hence propofol was held. Dr. Rankin from cardiology was contacted regarding V. fib arrest and did not want to proceed with cardiac catheterization at that time. Critical care medicine was contacted to see if patient was a candidate for therapeutic hypothermia. I came to the ER and evaluated the patient immediately on being notified. His labs and head CT were pending at the time of my evaluation. Patient was comatose off propofol not responding to painful stimuli intubated on mechanical ventilation. Per family patient was absolutely asymptomatic prior to becoming unresponsive. History was obtained by reviewing records and discussion with ER physician. 07/25: Patient remains on therapeutic hypothermia protocol. Urine drug screen resulted at 1 AM and was positive for cocaine though family had denied any drug use to ER physician. 07/26: Patient completed therapeutic hypothermia protocol. He was awake and alert on lightening sedation and following commands. Underwent C Pap trials which he tolerated well and was subsequently extubated. He is requiring 15 L O2 currently. Received 1 dose of Solu-Medrol 125 mg IV in view of history of heavy smoking for suspected COPD contributing to respiratory failure. He is otherwise awake and alert, following commands following extubation. Patient's tells me that he had remote history of cocaine use however is not aware of any recent cocaine use. Objective Vital Signs Date Time Temp Pulse Resp B/P (MAP) Pulse Ox O2 Delivery O2 Flow Rate FiO2 07/26/17 11:00 95 Partial Non-Rebreather 15.00 07/26/17 11:00 98.8 92 12 120/68 (85) 07/26/17 07:30 40 Intake and Output 07/26/17 07/26/17 07/27/17 08:00 16:00 00:00 Intake Total 3415 ml Output Total 1940 ml Balance 1475 ml Result Diagram: 07/26/17 0330 07/26/17 0330 Imaging Chest x-ray portable which was personally reviewed: ET tube above albert, lung danielle appear clear with no obvious infiltrates. Head CT pending at the time of this dictation Objective Remarks HEENT/ Neuro: Awake, alert, following commands, moving all 4 extremities, no pallor, tongue/ mucosa moist Neck: No JVD Chest/Pulm: good air entry bilaterally, scattered rhonchi, no wheezing or crackles CVS: S1-S2 regular, no murmur GI/abdomen: soft, nontender, bowel sounds sluggish Extremities: Warm bilaterally, no edema A/P Assessment and Plan 61-year-old male with: Out of hospital V. fib arrest status post CPR Non-ST elevation FL: Possibly related to cocaine use Acute respiratory failure Suspected COPD exacerbation Hypotension Insulin-dependent diabetes mellitus Encephalopathy Cocaine positive Plan: Neuro: Completed therapeutic hypothermia protocol. Follow neuro checks. Off all sedation, just extubated. Patient tested positive for cocaine. Cardiovascular: Receiving 1 L normal saline bolus in the ER for hypotension. Levophed for pressor support if needed. Troponin greater than 40. Cardiology consult with Dr. Rankin. ED physician is already spoken with Dr. Rankin following V. fib arrest and he is not planning cardiac catheterization at this time. Continue aspirin and continue heparin gtt, ASA. Continue amiodarone gtt. titrated off Levophed following extubation. Check BNP. Bumex 1 mg IV 1 dose now in view of respiratory failure with high O2 requirement. Pulmonary: Extubated following C Pap trial. Requiring 15 L O2 per minute, bronchodilators as needed. Started on Solu-Medrol. Bumex 1 mg IV 1 dose. GI/liver: Advance by mouth if respiratory status improves. Renal/: Strict intake output, monitor and replete electrolites, follow BUN creatinine. Bumex 1 mg IV 1 dose on 07/26 ID: Start Levaquin for empiric antibiotic coverage in view of suspected COPD exacerbation Heme: Follow CBC and coags. On anticoagulation with heparin for acute FL. Endocrine: Continue Levemir 5 units subcutaneously every 12 hourly along with sliding scale insulin in view of insulin-dependent diabetes mellitus. If needed we will initiate insulin drip for glycemic control. Prophylaxis: Pepcid/SCDs. Anticoagulation with heparin. Updated patient's regarding current clinical status and plan of care and she voiced understanding and was agreeable. Condition critical. Status post cardiac arrest with acute FL, hypotension cocaine positive and now respiratory failure. Time spent on critical care excluding procedures: 35 minutes Rip Curtis MD Jul 26, 2017 13:11
--- NOTE | 2017-07-26 13:19 | PD.CARD.PN ---
Subjective Subjective Remarks extubated, alert in nad, denies chest pain or dyspnea Objective Medications Current Medications Medications (Trade) Dose Ordered Sig/Laxmi Route Start Time Stop Time Status Last Admin Propofol 100 ml @ 0 mls/hr TITRATE PRN IV 07/24/17 15:45 07/26/17 08:51 (Heparin Inj) 5,000 units UNSCH PRN IV PUSH 07/24/17 21:45 (Heparin Inj) 2,500 units UNSCH PRN IV PUSH 07/24/17 21:45 07/26/17 12:40 Amiodarone HCl 450 mg/Dextrose 250 ml @ 33.33 mls/ hr Q7H31M PRN IV 07/24/17 16:22 07/25/17 23:13 Heparin Sodium/ Dextrose 250 ml @ 9 mls/hr TITRATE PRN IV 07/24/17 16:45 07/26/17 12:36 (Ativan Inj) 1 mg Q1H PRN IV PUSH 07/24/17 16:30 Midazolam HCl 100 ml @ 2 mls/hr TITRATE PRN IV 07/24/17 16:30 Fentanyl Citrate 250 ml @ 5 mls/hr TITRATE PRN IV 07/24/17 16:30 07/26/17 04:08 (Demerol Inj) 25 mg Q2H PRN IV PUSH 07/24/17 16:30 07/26/17 10:47 (Buspar) 15 mg BID PRN NG 07/24/17 16:30 07/26/17 04:11 Cisatracurium Besylate 100 mg/ Sodium Chloride 250 ml @ 37.12 mls/ hr TITRATE PRN IV 07/24/17 17:00 Future Hold 07/25/17 09:02 (Lacrilube Opht Oint) 1 applic Q4H PRN EACH EYE 07/24/17 16:30 (NS Flush) 2 ml BID IV FLUSH 07/24/17 21:00 07/25/17 20:52 (NS Flush) 2 ml UNSCH PRN IV FLUSH 07/24/17 16:30 Miscellaneous Information 0 ml @ 0 mls/hr UNSCH IV 07/24/17 16:30 Miscellaneous Information 1 Q361D XX 07/24/17 16:30 (Chlorhexidine 2% Cloth) 3 pack Taper DAILY@04 TOP 07/25/17 04:00 11/23/18 03:59 07/26/17 04:00 (Chlorhexidine 2% Cloth) 3 pack UNSCH PRN TOP 07/24/17 16:30 Potassium Chloride 100 ml @ 50 mls/hr Q2H PRN IV 07/24/17 16:30 Potassium Chloride 100 ml @ 50 mls/hr Q2H PRN IV 07/24/17 16:30 (K-Lyte Cl Eff) 50 meq UNSCH PRN PO 07/24/17 16:30 Potassium Chloride 100 ml @ 25 mls/hr UNSCH PRN IV 07/24/17 16:30 07/26/17 08:50 Potassium Chloride 100 ml @ 50 mls/hr Q2H PRN IV 07/24/17 16:30 07/25/17 00:10 Magnesium Sulfate 4 gm/Sodium Chloride 100 ml @ 50 mls/hr UNSCH PRN IV 07/24/17 16:30 (Mag-Ox) 800 mg UNSCH PRN PO 07/24/17 16:30 Magnesium Sulfate 2 gm/Sodium Chloride 100 ml @ 50 mls/hr UNSCH PRN IV 07/24/17 16:30 07/26/17 02:23 (K-Phos) 2,000 mg Q4H PRN PO 07/24/17 16:30 Sodium Phosphate 30 mmol/Sodium Chloride 250 ml @ 42 mls/hr UNSCH PRN IV 07/24/17 16:30 (K-Phos) 2,000 mg UNSCH PRN PO/TUBE 07/24/17 16:30 Potassium Phosphate 30 mmol/ Sodium Chloride 260 ml @ 42 mls/hr UNSCH PRN IV 07/24/17 16:30 (Aspirin Chew) 81 mg DAILY OG-TUBE 07/25/17 09:00 07/26/17 08:50 (Levemir Inj) 5 units Q12HR SQ 07/24/17 21:00 07/25/17 20:51 (NovoLOG SUPPLEMENTAL SCALE) 1 Q4HR SQ 07/24/17 20:00 07/26/17 04:08 (D50w (Vial) Inj) 25 ml UNSCH PRN IV 07/24/17 17:30 07/26/17 11:59 (Glucagon Inj) 1 mg UNSCH PRN IM/SQ 07/24/17 17:30 Norepinephrine Bitartrate 4 mg/ Sodium Chloride 250 ml @ 7.5 mls/hr TITRATE PRN IV 07/26/17 06:15 (Duoneb Neb) 1 ampule Q4HR NEB NEB 07/26/17 12:45 (Duoneb Neb) 1 ampule Q2HR NEB PRN NEB 07/26/17 12:45 (SoluMEDROL INJ) 40 mg Q8H IV PUSH 07/26/17 18:00 Levofloxacin/ Dextrose 150 ml @ 100 mls/hr Q24H IV 07/26/17 14:00 Vital Signs / I&O Vital Signs Date Time Temp Pulse Resp B/P (MAP) Pulse Ox O2 Delivery O2 Flow Rate FiO2 07/26/17 11:00 95 Partial Non-Rebreather 15.00 07/26/17 11:00 98.8 92 12 120/68 (85) 92 07/26/17 11:00 92 07/26/17 10:15 94 Simple Mask 8.00 07/26/17 10:15 94 Mask 8 07/26/17 07:30 40 07/26/17 07:30 72 07/26/17 07:30 98 Mechanical Ventilator 40 07/26/17 07:25 97 40 07/26/17 07:00 97.7 72 14 111/72 (85) 98 115/58 (77) 07/26/17 04:13 73 130/67 07/26/17 03:35 99 40 07/26/17 03:00 98 Mechanical Ventilator 40 07/26/17 03:00 40 07/26/17 03:00 60 07/26/17 03:00 94.0 62 14 129/79 (96) 98 135/68 (90) 07/26/17 03:00 62 135/68 07/26/17 03:00 62 135/68 07/26/17 03:00 62 135/68 07/26/17 03:00 62 135/68 07/26/17 03:00 62 135/68 07/26/17 03:00 62 135/68 07/26/17 03:00 62 135/68 07/26/17 02:00 57 84/49 07/26/17 02:00 57 84/49 07/26/17 02:00 57 84/49 07/26/17 02:00 57 84/49 07/26/17 02:00 57 84/49 07/26/17 02:00 57 84/49 07/26/17 01:00 97 40 07/25/17 23:13 48 93/50 07/25/17 23:00 98 Mechanical Ventilator 40 07/25/17 23:00 40 07/25/17 23:00 92.0 48 14 99/63 (75) 98 94/49 (64) 07/25/17 23:00 48 07/25/17 22:35 99 40 07/25/17 21:10 52 137/67 07/25/17 21:10 52 137/67 07/25/17 21:10 52 137/67 07/25/17 21:10 52 137/67 07/25/17 21:10 52 137/67 07/25/17 21:10 52 137/67 07/25/17 21:10 52 137/67 07/25/17 21:10 52 137/67 07/25/17 21:10 52 137/67 07/25/17 21:10 52 137/67 07/25/17 21:10 52 137/67 07/25/17 21:10 52 137/67 07/25/17 21:03 53 125/70 07/25/17 20:10 98 40 07/25/17 20:00 53 127/63 07/25/17 20:00 53 127/63 07/25/17 20:00 53 127/63 07/25/17 20:00 53 127/63 07/25/17 20:00 53 127/63 07/25/17 20:00 53 127/63 07/25/17 20:00 53 127/63 07/25/17 20:00 53 127/63 07/25/17 20:00 53 127/63 07/25/17 20:00 53 127/63 07/25/17 20:00 53 127/63 07/25/17 20:00 53 127/63 07/25/17 19:30 58 81/44 07/25/17 19:30 58 81/44 07/25/17 19:30 58 81/44 07/25/17 19:30 58 81/44 07/25/17 19:30 58 81/44 07/25/17 19:30 58 81/44 07/25/17 19:30 58 81/44 07/25/17 19:30 58 81/44 07/25/17 19:30 58 81/44 07/25/17 19:30 58 81/44 07/25/17 19:30 58 81/44 07/25/17 19:30 58 81/44 07/25/17 19:10 53 79/44 07/25/17 19:10 53 79/44 07/25/17 19:10 53 79/44 07/25/17 19:10 53 79/44 07/25/17 19:10 53 79/44 07/25/17 19:10 53 79/44 07/25/17 19:10 53 79/44 07/25/17 19:10 53 79/44 07/25/17 19:10 53 79/44 07/25/17 19:10 53 79/44 07/25/17 19:10 53 79/44 07/25/17 19:10 53 79/44 07/25/17 19:00 55 07/25/17 19:00 92.0 49 14 85/63 (70) 98 81/45 (57) 07/25/17 19:00 40 07/25/17 19:00 98 Mechanical Ventilator 40 07/25/17 18:25 48 95/50 07/25/17 18:01 49 87/47 07/25/17 17:00 50 87/55 07/25/17 16:15 97 40 07/25/17 16:00 50 95/52 07/25/17 15:00 56 07/25/17 15:00 40 07/25/17 15:00 90.2 58 14 100/72 (81) 97 100/56 (71) 07/25/17 15:00 97 Mechanical Ventilator 40 07/25/17 15:00 58 100/56 I/O 07/25/17 07/25/17 07/25/17 07/26/17 07/26/17 07/26/17 07:00 15:00 23:00 07:00 15:00 23:00 Intake Total 1819 ml 829 ml 3415 ml Output Total 2115 ml 1700 ml 1940 ml Balance -296 ml -871 ml 1475 ml Intake Oral 0 ml IV Total 1819 ml 769 ml 3215 ml Tube Irrigant 60 ml 200 ml Output Urine Total 2115 ml 1250 ml 1240 ml Gastric Drainage Total 450 ml 700 ml # Bowel Movements 2 0 0 Physical Exam GENERAL: SKIN: Warm and dry. HEAD: Normocephalic. EYES: No scleral icterus. No injection or drainage. NECK: Supple, trachea midline. No JVD or lymphadenopathy. CARDIOVASCULAR: Regular rate and rhythm without murmurs, gallops, or rubs. RESPIRATORY: Breath sounds equal bilaterally. No accessory muscle use. GASTROINTESTINAL: Abdomen soft, non-tender, nondistended. MUSCULOSKELETAL: No cyanosis, or edema. BACK: Nontender without obvious deformity. No CVA tenderness. Laboratory Laboratory Tests Test 07/25/17 14:30 07/25/17 17:40 07/26/17 00:32 07/26/17 03:30 Activated Partial Thromboplast Time 34.2 SEC 35.0 SEC 31.5 SEC White Blood Count 15.4 TH/MM3 16.7 TH/MM3 Red Blood Count 5.04 MIL/MM3 5.13 MIL/MM3 Hemoglobin 13.9 GM/DL 13.7 GM/DL Hematocrit 42.2 % 42.6 % Mean Corpuscular Volume 83.7 FL 83.2 FL Mean Corpuscular Hemoglobin 27.5 PG 26.8 PG Mean Corpuscular Hemoglobin Concent 32.9 % 32.2 % Red Cell Distribution Width 16.1 % 16.2 % Platelet Count 209 TH/MM3 207 TH/MM3 Mean Platelet Volume 9.5 FL 8.7 FL Neutrophils (%) (Auto) 83.3 % 86.4 % Lymphocytes (%) (Auto) 7.0 % 5.7 % Monocytes (%) (Auto) 9.1 % 7.5 % Eosinophils (%) (Auto) 0.2 % 0.1 % Basophils (%) (Auto) 0.4 % 0.3 % Neutrophils # (Auto) 12.8 TH/MM3 14.4 TH/MM3 Lymphocytes # (Auto) 1.1 TH/MM3 1.0 TH/MM3 Monocytes # (Auto) 1.4 TH/MM3 1.3 TH/MM3 Eosinophils # (Auto) 0.0 TH/MM3 0.0 TH/MM3 Basophils # (Auto) 0.1 TH/MM3 0.0 TH/MM3 CBC Comment DIFF FINAL DIFF FINAL Differential Comment Blood Urea Nitrogen 23 MG/DL 22 MG/DL 20 MG/DL Creatinine 0.85 MG/DL 0.88 MG/DL 0.83 MG/DL Random Glucose 164 MG/DL 186 MG/DL 162 MG/DL Total Protein 6.0 GM/DL 6.0 GM/DL 5.9 GM/DL Calcium Level 7.0 MG/DL 7.2 MG/DL 6.9 MG/DL Magnesium Level 1.8 MG/DL 1.6 MG/DL Sodium Level 137 MEQ/L 140 MEQ/L 141 MEQ/L Potassium Level 4.7 MEQ/L 4.3 MEQ/L 4.0 MEQ/L Chloride Level 108 MEQ/L 109 MEQ/L 109 MEQ/L Carbon Dioxide Level 18.9 MEQ/L 18.6 MEQ/L 20.5 MEQ/L Anion Gap 10 MEQ/L 12 MEQ/L 12 MEQ/L Estimat Glomerular Filtration Rate 92 ML/MIN 89 ML/MIN 95 ML/MIN Protein Corrected Calcium 7.6 MG/DL 7.8 MG/DL 7.5 MG/DL Albumin 2.7 GM/DL Alkaline Phosphatase 85 U/L Aspartate Amino Transf (AST/SGOT) 146 U/L Alanine Aminotransferase (ALT/SGPT) 77 U/L Total Bilirubin 0.5 MG/DL Test 07/26/17 11:20 Activated Partial Thromboplast Time 34.5 SEC Imaging Last 24 hours Impressions Chest X-Ray 07/26/17 0600 Signed Impressions: Service Date/Time: Wednesday, July 26, 2017 03:53 - CONCLUSION: Right upper lobe mild consolidation or atelectasis. Hipolito Strickland MD Assessment and Plan Problem List: (1) Cardiac arrest ICD Codes: I46.9 - Cardiac arrest, cause unspecified Status: Acute (2) Seizure disorder ICD Codes: G40.909 - Epilepsy, unspecified, not intractable, without status epilepticus (3) Ventricular fibrillation ICD Codes: I49.01 - Ventricular fibrillation (4) NSTEMI (non-ST elevated myocardial infarction) ICD Codes: I21.4 - Non-ST elevation (NSTEMI) myocardial infarction Assessment and Plan 1.) Cardiac arrest - alert in nad, rec lhc/rhc 07/27/17, continue aspirin, iv heparin, f/u neuro recs, 2d echo Julio Cesar Rankin MD Jul 26, 2017 13:19
[2017-07-26] MEDS: RESP: ALBUTEROL 2.5 MG/IPRATROPIUM 0.5 MG NEB (SCH) NEB ×3 (13:22→22:54)
[2017-07-26 13:34] LABS: BICARBONATE 19.7 MEQ/L (21.0-32.0); MAGNESIUM 1.8 MG/DL (1.5-2.5); POTASSIUM 4.1 MEQ/L (3.5-5.1)
[2017-07-26] MEDS: LEVOFLOXACIN 750 MG PREMIX INJ 150 ML IV SCH (13:40)
[2017-07-26 13:44] LABS: CALCIUM-PROTEIN CORRECTED 7.5 MG/DL (8.5-10.1)
[2017-07-26] MEDS: AMIODARONE INJ 450 MG in DEXTROSE 5% IN WATE(EXCEL) INJ 241 ML IV PRN ×2 (14:08)
[2017-07-26] MEDS: ACETAMINOPHEN 325 MG TAB PO PRN (15:54)
[2017-07-26] MEDS ORDERED: CALCIUM GLUCONATE INJ 2 GM in DEXTROSE 5% IN WATER 100ML INJ 100 ML IV ONE ×2 (16:00)
[2017-07-26] MEDS: methylPREDNISolone SOD SUCC 40 MG/1 ML VIAL IV PUSH SCH (17:28)
[2017-07-26] MEDS: MAGNESIUM SULFATE 1 GM PREMIX 100 ML IV SCH ×2 (17:29→19:52)
--- NOTE | 2017-07-26 17:47 | ECHRPT ---
Indication: Cardiac arrest, cause unspecified CONCLUSIONS The left ventricular systolic function is severely reduced with an estimated ejection fraction in t he range of 20-25%. Global hypokinesis.mildly dilated left ventricle. Wall thickness is normal. Mild mitral valve regurgitation. There is trace tricuspid valve regurgitation. The estimated pulmonary arterial pressure is 26 mmHg. BP: 130 / 67 HR: 73 Rhythm: Sinus MEASUREMENTS (Male / Female) Normal Values Technical Quality:Good 2D ECHO LV Diastolic Diameter PLAX 6.0 cm 4.2 - 5.9 / 3.9 - 5.3 cm LV Systolic Diameter PLAX 5.1 cm IVS Diastolic Thickness 1.1 cm 0.6 - 1.0 / 0.6 - 0.9 cm LVPW Diastolic Thickness 1.1 cm 0.6 - 1.0 / 0.6 - 0.9 cm LV Relative Wall Thickness 0.3 LVOT Diameter 2.2 cm M-MODE Aortic Root Diameter MM 2.9 cm LA Systolic Diameter MM 3.5 cm LA Ao Ratio MM 1.2 AV Cusp Separation MM 2.0 cm DOPPLER AV Peak Velocity 132.0 cm/s AV Peak Gradient 7.0 mmHg LVOT Peak Velocity 90.8 cm/s LVOT Peak Gradient 3.3 mmHg AV Area Cont Eq pk 2.6 cm MR Peak Velocity 232.5 cm/s MR Peak Gradient 21.6 mmHg Mitral E Point Velocity 93.3 cm/s Mitral A Point Velocity 75.5 cm/s Mitral E to A Ratio 1.2 LV E' Lateral Velocity 8.1 cm/s Mitral E to LV E' Lateral Ratio 11.5 LV E' Septal Velocity 5.6 cm/s Mitral E to LV E' Septal Ratio 16.8 TR Peak Velocity 202.0 cm/s TR Peak Gradient 16.3 mmHg Right Atrial Pressure 10.0 mmHg Pulmonary Artery Systolic Pressu 26.3 mmHg Right Ventricular Systolic Press 26.3 mmHg PV Peak Velocity 81.4 cm/s PV Peak Gradient 2.7 mmHg FINDINGS LEFT VENTRICLE The left ventricular systolic function is severely reduced with an estimated ejection fraction in t he range of 20-25%. Global hypokinesis.mildly dilated left ventricle. Wall thickness is normal. RIGHT VENTRICLE Normal right ventricular size and systolic function. LEFT ATRIUM The left atrial size is normal. RIGHT ATRIUM The right atrial size is normal. ATRIAL SEPTUM Normal atrial septal thickness without atrial level shunting by limited color doppler interrogation. AORTA The aortic root and proximal ascending aorta are normal in size on limited imaging. MITRAL VALVE Mild mitral valve regurgitation. AORTIC VALVE Trileaflet aortic valve. No aortic valve stenosis or regurgitation. TRICUSPID VALVE There is trace tricuspid valve regurgitation. The estimated pulmonary arterial pressure is 26 mmHg. PULMONARY VALVE No pulmonary valve regurgitation or stenosis. VESSELS The inferior vena cava is normal in size. PERICARDIUM No pericardial effusion. León Marte MD (Electronically Signed) Final Date:26 July 2017 17:47
[2017-07-26 18:34] LABS: APTT (PATIENT) 49.6 SEC (24.3-30.1)
[2017-07-26] MEDS ORDERED: BUMETANIDE INJ 1 MG/4 ML VIAL IV PUSH ONE (20:00)
[2017-07-26 20:32] LABS: MRSA PCR POSITIVE (NEGATIVE); STAPH AUREUS PCR POSITIVE (NEGATIVE)
[2017-07-27] VITALS (9 sets, daily range): BP systolic 107–149; BP diastolic 50–81; PULSE 90–108; RESP 16–25; TEMP 97.9–99; O2SAT 91–97
[2017-07-27] MEDS: INSULIN ASPART SUPPLEMENTAL SCALE SQ SCH ×6 (00:30→21:30)
[2017-07-27 01:29] LABS: APTT (PATIENT) 95.4 SEC (24.3-30.1)
[2017-07-27] MEDS: TEMAZEPAM 15 MG CAP PO PRN (01:33)
[2017-07-27] MEDS: methylPREDNISolone SOD SUCC 40 MG/1 ML VIAL IV PUSH SCH ×3 (01:35→21:29)
[2017-07-27] MEDS: RESP: ALBUTEROL 2.5 MG/IPRATROPIUM 0.5 MG NEB (SCH) NEB ×6 (01:57→21:51)
[2017-07-27 03:56] LABS: HEMATOCRIT 39.9 % (39.0-51.0); MEAN CELL VOLUME 80.5 FL (80.0-100.0); MEAN CORPUSCULAR HEMOGLOBIN 26.6 PG (27.0-34.0); PLATELET COUNT 157 TH/MM3 (150-450); RED BLOOD COUNT 4.96 MIL/MM3 (4.50-5.90); RED CELL DISTRIBUTION WIDTH 15.4 % (11.6-17.2); REVIEW FLAG FINAL; WHITE BLOOD COUNT 13.6 TH/MM3 (4.0-11.0)
[2017-07-27] MEDS: CHLORHEXIDINE GLUCONATE 2 % 1 PACK (2 CLOTHS) TOP SCH (04:00)
[2017-07-27 04:08] LABS: APTT (PATIENT) 70.4 SEC (24.3-30.1)
[2017-07-27 04:20] LABS: BICARBONATE 23.2 MEQ/L (21.0-32.0); MAGNESIUM 1.7 MG/DL (1.5-2.5)
[2017-07-27 04:22] LABS: POTASSIUM 2.9 MEQ/L (3.5-5.1)
[2017-07-27] MEDS: POTASSIUM CHLOR 20 MEQ PREMIX 100 ML IV PRN (05:25)
[2017-07-27] MEDS: AMIODARONE INJ 450 MG in DEXTROSE 5% IN WATE(EXCEL) INJ 241 ML IV PRN ×2 (05:38)
--- NOTE | 2017-07-27 07:23 | HHI.CCPN ---
Subjective Remarks/Hospital Course 07/24: 61-year-old male with medical history significant for hypertension, insulin-dependent diabetes mellitus who was in his usual state of health today. While being driven by a family member he suddenly became unresponsive with a seizure. He was taken out of his car and had bystander CPR for 3-5 minutes by monitoring coordinator who happened to be around. On EMS arrival patient was noted to be in V. fib arrest. He underwent DC shock 3 following which she had return of spontaneous circulation. He was having spontaneous respirations which were agonal and he is brought to the ER by EMS. Patient was comatose with GCS of 3 per documentation and did not appear to be protecting his airway hence was intubated for airway protection and placed on mechanical ventilation in the ER. He did receive it, date and succinylcholine for intubation. He was subsequently initiated on propofol for sedation as he was fighting the ventilator however dropped his blood pressure hence propofol was held. Dr. Rankin from cardiology was contacted regarding V. fib arrest and did not want to proceed with cardiac catheterization at that time. Critical care medicine was contacted to see if patient was a candidate for therapeutic hypothermia. I came to the ER and evaluated the patient immediately on being notified. His labs and head CT were pending at the time of my evaluation. Patient was comatose off propofol not responding to painful stimuli intubated on mechanical ventilation. Per family patient was absolutely asymptomatic prior to becoming unresponsive. History was obtained by reviewing records and discussion with ER physician. 07/25: Patient remains on therapeutic hypothermia protocol. Urine drug screen resulted at 1 AM and was positive for cocaine though family had denied any drug use to ER physician. 07/26: Patient completed therapeutic hypothermia protocol. He was awake and alert on lightening sedation and following commands. Underwent C Pap trials which he tolerated well and was subsequently extubated. He is requiring 15 L O2 currently. Received 1 dose of Solu-Medrol 125 mg IV in view of history of heavy smoking for suspected COPD contributing to respiratory failure. He is otherwise awake and alert, following commands following extubation. Patient's tells me that he had remote history of cocaine use however is not aware of any recent cocaine use. 07/27: Awake and alert. Following commands. Diuresed well with Bumex overnight. O2 requirement 8 L/m this morning. Still has some shortness of breath. Drops O2 sats to 86% on taking off oxygen. Admits to using cocaine on the day of his cardiac arrest [place] the [place]. Tells me he uses cocaine once every 6 months or so. On inquiring about alcohol intake he states that he has a few drinks every few weeks and denies daily alcohol consumption. He smokes half a pack a day. Denies any chest pain currently. 2-D echo showed LVEF 20-25% with global hypokinesis. Objective Vital Signs Date Time Temp Pulse Resp B/P (MAP) Pulse Ox O2 Delivery O2 Flow Rate FiO2 07/27/17 05:38 110 118/57 07/27/17 03:00 99.0 18 91 07/27/17 03:00 Simple Mask 8.00 07/26/17 07:30 40 Intake and Output 07/27/17 07/27/17 07/28/17 08:00 16:00 00:00 Intake Total 488 ml Output Total 2000 ml Balance -1512 ml Result Diagram: 07/27/17 0340 07/27/17 0340 Other Results Laboratory Tests Test 07/26/17 11:20 07/26/17 13:30 07/26/17 16:40 07/26/17 17:45 Activated Partial Thromboplast Time 34.5 SEC 49.6 SEC Blood Urea Nitrogen 17 MG/DL Creatinine 0.83 MG/DL Random Glucose 52 MG/DL Total Protein 6.1 GM/DL Calcium Level 7.0 MG/DL Magnesium Level 1.8 MG/DL Sodium Level 139 MEQ/L Potassium Level 4.1 MEQ/L Chloride Level 111 MEQ/L Carbon Dioxide Level 19.7 MEQ/L Anion Gap 8 MEQ/L Estimat Glomerular Filtration Rate 95 ML/MIN Protein Corrected Calcium 7.5 MG/DL B-Type Natriuretic Peptide 469 PG/ML Nasal Screen MRSA (PCR) POSITIVE Staphylococcus aureus (PCR)(LAB) POSITIVE Test 07/27/17 00:40 07/27/17 03:40 Activated Partial Thromboplast Time 95.4 SEC 70.4 SEC White Blood Count 13.6 TH/MM3 Red Blood Count 4.96 MIL/MM3 Hemoglobin 13.2 GM/DL Hematocrit 39.9 % Mean Corpuscular Volume 80.5 FL Mean Corpuscular Hemoglobin 26.6 PG Mean Corpuscular Hemoglobin Concent 33.0 % Red Cell Distribution Width 15.4 % Platelet Count 157 TH/MM3 Mean Platelet Volume 8.9 FL Blood Urea Nitrogen 17 MG/DL Creatinine 0.94 MG/DL Random Glucose 141 MG/DL Calcium Level 7.5 MG/DL Magnesium Level 1.7 MG/DL Sodium Level 143 MEQ/L Potassium Level 2.9 MEQ/L Chloride Level 108 MEQ/L Carbon Dioxide Level 23.2 MEQ/L Anion Gap 12 MEQ/L Estimat Glomerular Filtration Rate 82 ML/MIN Imaging Chest x-ray portable which was personally reviewed: ET tube above albert, lung danielle appear clear with no obvious infiltrates. Head CT pending at the time of this dictation Objective Remarks HEENT/ Neuro: Awake, alert, oriented 3, following commands, moving all 4 extremities, no pallor, tongue/ mucosa moist Neck: No JVD Chest/Pulm: good air entry bilaterally, scattered rhonchi, no wheezing or crackles CVS: S1-S2 regular, no murmur GI/abdomen: soft, nontender, bowel sounds sluggish Extremities: Warm bilaterally, no edema Urinary Catheter: Yes Assessment to: Continue Buck insert reason: ICU Pt Getting Diuretics A/P Assessment and Plan 61-year-old male with: Out of hospital V. fib arrest status post CPR Acute SD: Possibly related to cocaine use Ischemic cardiomyopathy Acute Decompensated CHF Acute respiratory failure Suspected COPD with exacerbation Hypotension (resolved) Insulin-dependent diabetes mellitus Encephalopathy (resolved) Cocaine positive Plan: Neuro: Completed therapeutic hypothermia protocol. Follow neuro checks. Off all sedation. Patient tested positive for cocaine. Cardiovascular: Receiving 1 L normal saline bolus in the ER for hypotension. Troponin greater than 40. Cardiology consult with Dr. Rankin. ED physician is already spoken with Dr. Rankin following V. fib arrest and he was not planning cardiac catheterization until neuro status improved following hypothermia protocol. Continue heparin gtt, ASA. Continue amiodarone gtt. titrated off Levophed following extubation. BNP elevated and 2-D echo revealed LVEF 20-25% with global hypokinesis. Responding well with diuresis with Bumex. Added Coreg 6.25 mg every 12 hourly, lisinopril 5 mg by mouth daily and Lipitor 20 mg daily starting 07/27. Further recommendations per cardiology-D/w Dr. Rankin on 07/26 - planning cardiac catheterization for 07/27. Stop heparin and consider switching amiodarone to PO when okay with cardiology. Cardiology to decide regarding timing for ICD evaluation. Pulmonary: Extubated following C Pap trial. Continue supplemental O2 by nasal cannula, bronchodilators as needed. Will taper Solu-Medrol. Continue diuresis. Follow-up chest x-ray GI/liver: Advance PO diet following cardiac cath. Renal/: Strict intake output, monitor and replete electrolytes, follow BUN creatinine. Started on Bumex for diuresis on 07/26 ID: Start Levaquin for empiric antibiotic coverage in view of suspected COPD exacerbation Heme: Follow CBC and coags. On anticoagulation with heparin for acute SD-to be held for removal of cooling catheter and then resume following ensuring adequate hemostasis. Endocrine: Continue Levemir 5 units subcutaneously every 12 hourly along with sliding scale insulin in view of insulin-dependent diabetes mellitus. Hold Levemir today in view of hypoglycemia and nothing by mouth status for cardiac cath. Prophylaxis: Pepcid/SCDs. Anticoagulation with heparin. Updated patient's regarding current clinical status and plan of care and she voiced understanding and was agreeable. Condition guarded. Status post cardiac arrest with acute SD, ischemic cardiomyopathy, CHF, COPD, cocaine positive and respiratory failure. Rip Curtis MD Jul 27, 2017 07:23
[2017-07-27] MEDS: MAGNESIUM SULFATE 1 GM PREMIX 100 ML IV SCH ×2 (07:56→08:55)
[2017-07-27] MEDS: CARVEDILOL 6.25 MG TAB PO SCH ×3 (08:02→21:29)
[2017-07-27] MEDS: LISINOPRIL 5 MG TAB PO SCH (08:51)
[2017-07-27] MEDS: ASPIRIN 81 MG CHEW TAB OG-TUBE SCH (08:52)
[2017-07-27] MEDS: ATORVASTATIN 20 MG TAB PO SCH (08:52)
[2017-07-27] MEDS: INSULIN DETEMIR 100 UNITS/ML VIAL SQ SCH ×2 (08:54→21:30)
[2017-07-27] MEDS: SODIUM CHLORIDE 0.9% FLUSH 10 ML FLUSH IV FLUSH SCH ×2 (08:55→21:29)
--- NOTE | 2017-07-27 10:02 | RADRPT ---
EXAM DATE/TIME: 07/27/2017 08:22 [facility] COMPARISON: CHEST SINGLE AP, July 24, 2017, 15:41. CHEST SINGLE AP, July 26, 2017, 3:53. INDICATIONS : Difficulty breathing. MEDICAL HISTORY : Hypertension. Hypercholesterolemia. Diabetes. SURGICAL HISTORY : None. ENCOUNTER: Subsequent ACUITY: 3 days PAIN SCORE: 2/10 LOCATION: Bilateral chest FINDINGS: 2 portable frontal views of the chest show diffuse bilateral pulmonary infiltrates. Most pronounced w ithin the left upper lobe. No effusions. Heart is at the upper limits of normal in terms of size. A c atheter overlies the lower abdomen possibly related to a groin central venous line. CONCLUSION: Diffuse bilateral pulmonary infiltrates. These are more pronounced from the prior study. Tank Gutierrez Jr., MD on July 27, 2017 at 9:58 Board Certified Radiologist. This report was verified electronically.
[2017-07-27] MEDS ORDERED: BUMETANIDE INJ 1 MG/4 ML VIAL ONE (10:24)
[2017-07-27] MEDS ORDERED: BUMETANIDE INJ 1 MG/4 ML VIAL IV ONE (11:30)
[2017-07-27 11:52] LABS: CRITICAL VALUE YES; OXYGEN DEVICE VENTILATOR
[2017-07-27 11:54] LABS: DRAW SITE LT RADIAL; NUMBER OF ARTERIAL PUNCTURES 1; STAT YES; ULNAR PULSE PRESENT
[2017-07-27] MEDS ORDERED: HEPARIN-NS/PF INJ 1,000 ML ONE (12:25)
[2017-07-27] MEDS ORDERED: MIDAZOLAM HCL 2 MG/2 ML VIAL ONE (12:33)
[2017-07-27] MEDS ORDERED: POTASSIUM CHLOR 10 MEQ PREMIX 100 ML ONE (12:44)
[2017-07-27] MEDS ORDERED: HEPARIN SODIUM - IV 10,000 UNITS/10 ML VIAL ONE (12:58)
[2017-07-27] MEDS ORDERED: TIROFIBAN INFUSION INJ 250 ML IV ONE (13:07)
[2017-07-27] MEDS ORDERED: CLOPIDOGREL 300 MG TAB ONE (13:07)
--- NOTE | 2017-07-27 13:32 | CATHPROC ---
[employer] HIS Report Study Information Study Number Admission Scheduled Start Study Start [id number] Jul 24 2017 5:49PM 07/27/2017 Jul 27 2017 11:54AM [place] [facility] Cardiac Catheterization Admit Source Facility Department Emergency department [facility] Physician and Clinical Staff Initial Julio Cesar Walker Edge Cutterjulia Gregorio RN, Makayla Lopez BSN Recorder Linda Johns,RT(R) ScrJoão Langford,RT(R) Procedures Performed Procedure Location (Site) Vessel Name Coronary Angiograms LCA Left Coronary Coronary Angiograms RCA Right Coronary LV Gram-hand inj. LV LV Ventricle Stent LAD Mid Left Coronary Wire insertion Fem Art (left) Femoral Art Equipment Time Air Tube Releaser Description Size Mfg Part Number Used/Scraped [id number] 13:02 [employer] WIRE, [employer] Cloud PROWATER 180CM 180CM Used *[id number] CATHETER, FR5 SWAN LISA 11:55 [employer] LLOYD FR 5 [id number] *[id number] Used MONITOR TRANSDUCER, TRUWAVE [id number] 11:55 MCGEE LLOYD * Used W/STOCKCOCK *[id number] [id number] *[id number] [id number] *[id number] *[id number] 11:55 MEDLINE IND[employer]ES PACK, CCL CUSTOM * Used *[id number] 11:55 MEDLINE PACER PEN, SKIN DUAL W/ RULER * Used *[id number] 13:06 MEDTRONIC STENT, 3.0 22 INTEGRITY 3.0 22 Used *[id number] 13:02 Xan[employer]du MEDICAL 30 KATJA INDEFLATOR Used *[id number]-5F- 11:55 [employer] MEDICAL SHEATH, FR5.5 PRELUDE 11CM FR 5.5 Used [id number] [id number]-6F- 12:59 [employer] MEDICAL SHEATH, FR6.5 PRELUDE 11CM FR 6.5 038ACT Used *[id number] PSI-6F- 13:02 [employer] MEDICAL SHEATH, FR6.5 PRELUDE 11CM FR 6.5 038ACT Used *[id number] 11:55 [employer] MEDICAL WIRE, 3MMJ .035 180CM 180CM Used *[id number] 11:55 NAMIC MANIFOLD, 4 PORT * Used *[id number] 11:55 NYCOMED OMNIPAQUE, 350 MG, 150ML 150ML [id number] Used [id number] 11:55 [employer] MEDICAL BLANKET,WARM AIR CCL * Used *[id number] 11:55 TERUMO MEDICAL SHEATH, FR4 TERUMO (10CM) FR 4 Used *[id number] Equipment Model, Serial, Lot Number and Expiration Data Description Model Number Serial Number Lot Number Expiration Date STENT, 3.0 22 INTEGRITY [id number] 03-01-2019 History: Current Medications Medication Dosage/Unit Route Frequency Last Date/Time Taken LIPITOR ASA History: Allergies Allergy Reaction No Known Allergies History: Risk Factors Family History of Hypertension Dyslipidemia Previous MD Previous Heart Failure Premature CAD Yes Yes Yes No No Prior Valve Prior PCI Prior CABG Surgery No No No Cerebrovascular Peripheral Artery Chronic Lung On Dialysis Diabetes Diabetes Therapy Disease Disease Disease No No No No Yes Insulin History: Stress Tests Stress or Imaging Studies Performed No History: Other Current Smoker Method Packs a Day Years Used Pack Years Yes Cigarettes 1 30 30 Labs Hgb (g/dl) Hct (%) WBC (l/cumm) Platelets (thousands) 11.60-17.00 35.00-51.00 4.00-11.00 150.00-450.00 13.2 39.9 13.6 157 Na (meq/l) K (meq/l) 136.00-145.00 3.50-5.10 143 2.9 INR (PTT:PT) 0.90-1.10 1 Medication Medication Total Dose (Bolus/Oral) Medication Total Dosage/Unit 1% XYLOCAINE 20 mL AGGRASTAT BOLUS 46 mL HEPARIN 6300 units PLAVIX 600 mg Medications (Bolus/Oral) Medication Time Given Dosage/Unit Administered By Reason 07/27/2017 12:46:15 1% XYLOCAINE 20 mL Julio Cesar Rankin PM 20 mL 1% XYLOCAINE given in lab by Julio Cesar Rankin in Left Groin via Subcutaneous. HEPARIN 07/27/2017 1:00:02 PM 6300 units Makayla Ross 6300 units HEPARIN given in lab by Makayla Ross BSN in Right Hand via Peripheral IV. Ordered by Julio Cesar Rankin. PLAVIX 07/27/2017 1:09:50 PM 600 mg Makayla Ross 600 mg PLAVIX given in lab by Makayla Ross BSN via Oral. Ordered by Julio Cesar Rankin. AGGRASTAT BOLUS 07/27/2017 1:14:00 PM 46 mL Makayla Ross 46 mL AGGRASTAT BOLUS given in lab by Makayla Ross BSN in Right Hand via Peripheral IV. Order ed by Julio Cesar Rankin. Medication (Drip) Medication Time Given Dosage/Unit Concentration/Unit Diluent (ml) Solution AGGRASTAT DRIP 07/27/2017 1:17:43 PM 0.152 mcg/kg/min 12.5 mg 250 NaCl .9 0.152 mcg/kg/min AGGRASTAT DRIP given in lab by Makayla Ross BSN in Right Hand via Peripheral IV. Pump/Drip Flow = 16.5 ml/hr using NaCl .9 with a concentration of 12.5 mg in 250 ml. Ordered by Julio Cesar Rankin. 07/27/2017 12:14:34 Amiodarone Drip 0.5 mg/min 450 mg 250 D5W PM Patient arrived on 0.5 mg/min Amiodarone Drip in Right Antecubital via Peripheral IV. Pump/Drip Flow = 16.67 ml/hr using D5W with a concentration of 450 mg in 250 ml. 07/27/2017 12:14:39 IV Solutions 50 mL (IV) NaCl .9 PM IV Solutions given in lab by Makayla Ross BSN in Right Hand via Peripheral IV. Pump/Drip Flow using NaCl .9. 07/27/2017 12:46:09 POTASSIUM DRIP 10 meq/hr 10 meq 100 D5W .9 NaCl PM 10 meq/hr POTASSIUM DRIP given in lab by Makayla Ross BSN in Right Hand via Peripheral IV. Pu mp/Drip Flow = 100 ml/hr using D5W .9 NaCl with a concentration of 10 meq in 100 ml. Ordered by Julio Cesar Rankin. Initial Case Assessment Cardiovascular HR Rhythm NIBP Chest Pain 103 Tachy 158/94 0 Edema Present Skin color Skin Mild Normal Warm Dry Circulatory - Right Pulses Dorsalis Pedis Femoral 2 2 Scale (0,1,2,3,4,d) Circulatory - Left Pulses Dorsalis Pedis Femoral 2 2 Scale (0,1,2,3,4,d) Neurological State Oriented to time-place- Alert Moves all extremities person Respiration - General Respiration Rate SpO2 (%) O2 (lpm) (B/min) 20 92 6 Chronological Log Time Study Chronological Log 12:12:39 Patient arrived via Bed. 12:12:56 Patient Name, D.O.B, / Armband Verified By R.N. 12:13:53 Consent signed by the physician and the patient and verified by the [facility] staff. 12:13:54 Pre-op and post- op instructions given; patient acknowledges understanding of instructions. 12:13:55 Verbal Stimulation=2 Physical Stimulation=2 Airway=2 Respiration=2 TOTAL=8. (0=absent, 1=li mited, 2=present) 12:13:56 Presedation assessment performed by [facility] RN. 12:14:09 Patient has been NPO for More than 6Hrs. 12:14:10 Skin Breakdown- 12:14:12 Patient Warmer Placed on the Table. 12:14:29 Susanne Prominences Protected 12:14:31 A # 20 IV was noted in the Forearm (left). Grade = 0 12:14:31 A # 18 IV was noted in the Antecubital (right). Grade = 0 Patient arrived on 0.5 mg/min Amiodarone Drip in Right Antecubital via Peripheral IV. Pump/Drip Flow = 16.67 ml/hr 12:14:34 using D5W with a concentration of 450 mg in 250 ml. 12:14:37 A # 20 IV was noted in the Hand (right). Grade = 0 12:14:39 IV Solutions given in lab by Makayla Ross BSN in Right Hand via Peripheral IV. Pump /Drip Flow using NaCl .9. 12:14:40 History and physical on the chart or being dictated. Assessment: Initial Case, PZ=400 BPM, Rhythm=Tachy, RXTQ=755/94 mmhg, Chest Pain=0, Edema=Mild, Color=Normal, Skin = Warm, Dry Right Pulses: Zachery Ped=2, Femoral=2 12:14:41 Left Pulses: Zachery Ped=2, Femoral=2 Neurological: State=Alert, Ox3, IVAN Respiration: Resp=20 B/min, SpO2=92 %, O2=6 lpm Vitals capture started with the following parameters, Patient=Adult, Interval=5 min, Initial Pr dgmczh=455 mmHg, 12:27:13 Deflation Rate=5 mmHg, Cuff placed on Left Arm 12:28:16 TW=772 bpm, IMSC=867/91 mmhg, SpO2=93.0 %, Resp=16 B/min 12:30:37 A-line in right femoral artery, arrived on 12:32:53 AC=382 bpm, PFCU=870/94 mmhg, SpO2=92.0 %, Resp=16 B/min 12:33:40 MD paged 12:34:51 MD responded 12:37:01 Pressure channel 1 zeroed. 12:37:54 YG=703 bpm, NAAX=393/90 mmhg, SpO2=92.0 %, Resp=22 B/min 12:42:55 HR=99 bpm, AKLJ=289/84 mmhg, SpO2=92.0 %, Resp=20 B/min 12:43:00 MD arrived. 12:44:26 Reference ECG taken Time Out. Correct patient, correct procedure, correct physician, power injector loaded, or not loaded with contrast with 12:45:54 surgical team present. Time Out Concurred by MD and individual staff in procedure. 10 meq/hr POTASSIUM DRIP given in lab by Makayla Ross BSN in Right Hand via Peripheral IV. Pump/Drip 12:46:09 Flow = 100 ml/hr using D5W .9 NaCl with a concentration of 10 meq in 100 ml. Ordered by Julio Cesar Vazquez. 12:46:09 Case Start 12:46:15 20 mL 1% XYLOCAINE given in lab by Julio Cesar Rankin in Left Groin via Subcutaneous. 12:47:26 Access site was Left Femoral Artery. 12:47:46 A SHEATH, FR4 TERUMO (10CM) FR 4 was advanced into the Fem Art (left) using the Percutaneou s technique. 12:47:54 AU=931 bpm, URUH=079/88 mmhg, SpO2=92.0 %, Resp=25 B/min 12:48:14 Activated Clotting Time Drawn 12:48:18 Saturation: Site=FA (Femoral Artery) , O2=92.7 %, Hgb=13.2 gm/dl, Condition=Condition 1. Us ed in calculation. 12:48:45 Access site was Left Femoral Vein. 12:48:57 A SHEATH, FR5.5 PRELUDE 11CM FR 5.5 was advanced into the Fem Vein (right) using the Percut aneous technique. A CATHETER, FR5 SWAN LISA MONITOR FR 5 was advanced over a wire. OMNIPAQUE, 350 MG, 150ML 150ML was 12:49:35 used for injections. Recorded Pressure: PCW, YK=945, Condition=Condition 1 12:50:46 (Pulmonary Capillary Wedge) PCW 1816/14 Recorded Pressure: MPA, SV=588, Condition=Condition 1 12:51:01 (Main Pulmonary Artery) MPA 38 12:51:26 Saturation: Site=PA (Pulmonary Artery) , O2=75.4 %, Hgb=13.2 gm/dl, Condition=Condition 1. Used in calculation. Recorded Pressure: RV, OB=608, Condition=Condition 1 12:52:00 (Right Ventricle) RV 36/3/7 Recorded Pressure: RA, WS=531, Condition=Condition 1 12:52:10 (Right Atrium) RA 55/3 12:52:22 Saturation: Site=RA (Right Atrium) , O2=74.3 %, Hgb=13.2 gm/dl, Condition=Condition 1. Used in calculation. 12:52:53 UF=485 bpm, SHBY=331/92 mmhg, SpO2=91.0 %, Resp=26 B/min A JR 4.0 INFINITI CATHETER FR 4 was advanced over a wire. OMNIPAQUE, 350 MG, 150ML 150ML was us ed for 12:54:12 injections. Recorded Pressure: LV, KK=029, Condition=Condition 1 12:54:30 (Left Ventricle) LV 134/9/16 12:54:35 The LV was manually injected with 6 cc's and visualized. OMNIPAQUE, 350 MG, 150ML 150ML use d. Recorded Pressure: LV, Ao, TR=623, Condition=Condition 1 12:54:55 (Left Ventricle) LV 132/6/12, (Aorta) Ao 123/74/96 12:55:32 The RCA was injected and visualized at various angles. OMNIPAQUE, 350 MG, 150ML 150ML used . Recorded Pressure: Ao, HR=99, Condition=Condition 1 12:55:37 (Aorta) Ao 116/72/91 12:56:15 Catheter was removed A JL 4.0 INFINITI CATHETER FR 4 was advanced over a wire. OMNIPAQUE, 350 MG, 150ML 150ML was us ed for 12:56:17 injections. 12:56:49 The LCA was injected and visualized at various angles. OMNIPAQUE, 350 MG, 150ML 150ML used . 12:57:54 HR=99 bpm, QDLI=748/93 mmhg, SpO2=92.0 %, Resp=22 B/min 12:58:29 Catheter was removed A SHEATH, FR6.5 PRELUDE 11CM FR 6.5 was exchanged in the Fem Art (right). This was necessary in order to 12:58:53 accomodate a larger catheter. 6300 units HEPARIN given in lab by Makayla Ross BSN in Right Hand via Peripheral IV. Or dered by Massiel, 13:00:02 Julio Cesar. A XB 4.0 GUIDE CATHETER FR 6 was advanced over a wire. OMNIPAQUE, 350 MG, 150ML 150ML was used for 13:01:36 injections. 13:02:53 IG=943 bpm, QSUY=850/94 mmhg, SpO2=91.0 %, Resp=19 B/min 13:02:53 A WIRE, ASAHI PROWATER 180CM 180CM was inserted via Fem Art (left). 13:04:53 Interventional wire has crossed the lesion An STENT, 3.0 22 INTEGRITY 3.0 22 Bare Metal Stent was inserted through a XB 4.0 GUIDE CATHETER FR 6 over a 13:05:04 WIRE, ASAHI PROWATER 180CM 180CM. A STENT, 3.0 22 INTEGRITY 3.0 22 was deployed using a 30 KATJA INDEFLATOR at 12 atmospheres for 1 5 seconds in 13:05:48 the LAD Mid. 13:06:24 Re-inflated the stent balloon in the LAD Mid to 15 KATJA for 12 seconds. 13:06:53 Wire removed 13:07:06 Catheter was removed 13:07:15 Case End 13:07:58 JC=266 bpm, BDAN=549/85 mmhg, SpO2=92.0 %, Resp=23 B/min 13:09:50 600 mg PLAVIX given in lab by Makayla Ross BSN via Oral. Ordered by Bernardo Rankin 13:11:40 Activated Clotting Time Drawn 13:12:55 HR=99 bpm, LWLD=248/96 mmhg, SpO2=93.0 %, Resp=19 B/min 46 mL AGGRASTAT BOLUS given in lab by Makayla Ross BSN in Right Hand via Peripheral IV. Ordered by 13:14:00 Julio Cesar Rankin. 13:15:00 ACT (Normal Range 90-180) = 274 0.152 mcg/kg/min AGGRASTAT DRIP given in lab by Makayla Ross BSN in Right Hand via Jacqueline pheral IV. 13:17:43 Pump/Drip Flow = 16.5 ml/hr using NaCl .9 with a concentration of 12.5 mg in 250 ml. Ordered by Julio Cesar Rankin. 13:18:17 Vitals capture stopped. 13:27:[address] Potassium running to left venous sheath 13:29:08 Sterile dressing applied to site 13:29:09 No case complications noted. 13:29:13 Bedside Report will be given. 13:29:14 Implantable Device card placed in patient's chart. 13:29:20 A Left and Right Heart Cath was performed. 13:29:24 Patient moved to [facility] End Study - Contrast Media Used In Study Contrast Total Opened (mL) Total Used (mL) Total Wasted (mL) Omnipaque 65 65 0 End Study - Radiation Exposure Fluoro Time (minutes) 3.5 End Study - Patient Disposition Complications Transferred To Interventional Outcome No Telemetry Bed successful
[2017-07-27] MEDS ORDERED: IOHEXOL 350 MG/ML 100 ML BTL (for Cath Lab) OTHER ONE (13:50)
[2017-07-27] MEDS ORDERED: CLOPIDOGREL 300 MG TAB PO ONE (14:00)
--- NOTE | 2017-07-27 14:06 | MA ---
cc: MIKEY GOODMAN M.D. DATE: 07/27/2017 PROCEDURE PERFORMED Right heart catheterization, left heart catheterization, left ventriculography, coronary angiography, direct PCI with bare metal stent of the proximal LAD. INDICATIONS Non-STEMI, congestive heart failure, cardiomyopathy, ventricular fibrillation, cardiac arrest, coronary artery disease. PROCEDURE The patient was brought to the cardiac catheterization laboratory, prepped and draped in usual sterile fashion. 10 ccs of 1% lidocaine was used to locally anesthetize the left common femoral artery and vein area. Note, I did not access the right as there was a previously placed catheter in the right femoral artery. A 4-Filipino sheath was placed in the left common femoral artery. A 5-Filipino sheath was placed in the left common femoral vein. Right heart catheterization was then performed first with following findings. The pulmonary capillary wedge pressure 18/16-14. PA pressure 30/14-25. RV pressure 36/3-7. RA pressure 5/5-3. On 6 liters nasal cannula FA sat 92.7%, PA sat 75.6%, RA sat 74.3%. Cardiac output by Radha 8.4 liters per minute. Cardiac index by Radha 4.0 liters per meter squared per minute. SVR 884.5 dynes. Left heart catheterization was then performed with a 4-Filipino JR-4, JL-4 catheter with the following findings, the LV pressure 130/8-14. Ejection fraction 30-35%. Also, the left ventricle appeared to be enlarged fluoroscopically, appeared to be global hypokinesis. The right coronary is dominant, has a edouard's crook in the proximal segment with a proximal 50% stenosis, just after the edouard's crook there is a long 80% stenosis. Otherwise, there is mild diffuse disease in the mid segment up to 20% angiographically. There also appears to be a very high bifurcation of the right PDA and MOON. The right MOON has an ostial 60% stenosis, it is a very tortuous vessel. Right PDA approaches the apex and has moderate to severe diffuse disease throughout the proximal mid segment up to 60% angiographically. Left main coronary artery has no significant disease angiographically. The left circumflex vessel has no significant disease angiographically. Gives off a medium to large first obtuse marginal vessel which has moderate disease in the proximal segment up to 50%, has a bifurcation in the mid segment. Both branches being small to medium in size. The more lateral branch has a proximal 95% stenosis. It is probably a 2.25 to 2.5 mm vessel. The LAD is transapical, has a long 95% proximal mid lesion. There are left to left collaterals to a small posterolateral artery which is probably 0.5 mm in diameter. The 4-Filipino sheath was exchanged for the 6-Filipino sheath. 70 units per kilo of heparin was given. ACT was 274. 6-Filipino XB 4.0 guide, 0.014 Prowater guidewire and a 3-0 22 Integrity stent were used to directly stent the proximal mid LAD. Note, the vessel was occluded with the un-deployed stent across the lesion, the systolic blood pressure decreased from 120 to 80 almost immediately upon crossing the vessel. The stent was deployed one inflation, 60 atmospheres for 15 seconds, stenosis went from 95% to 0% with BAILEY-III flow. Note, the patient had recovery of baseline systolic pressure by catheter tip of 120 mmHg within 2 minutes of deflating the balloon. CONCLUSION 1. Cardiomyopathy, severe three-vessel coronary artery disease status post V-fib arrest, most likely culprit, 95% proximal LAD lesion as detailed above. 2. Cardiomyopathy of 30-35%. 3. Mild pulmonary hypertension by right heart catheterization. 4. Successful direct PCI bare metal stent of the proximal mid LAD from 95% to 0% with BAILEY-III flow. 5. Recommend Plavix 600 mg p.o. load, then 75 mg a day for 12-15 months, aspirin 162 mg daily, hydrostatic drip per protocol. I have strongly advised the patient to abstain from cocaine use and tobacco use. Will check fasting lipids, ALT and CK and treat ___ guidelines. Depending on the patient's hemodynamic and clinical response, will need to follow trends to determine if revascularization is necessary for the right coronary artery and the lateral branch of the first obtuse marginal vessel. The patient's condition remains guarded and he will continue to need electrolyte repletion and ICU observation. MD REKHA Almanza/NAFISA /1:14 PM /1:25 PM
[2017-07-27] MEDS ORDERED: TIROFIBAN INFUSION INJ 250 ML IV SCH (14:10)
[2017-07-27] MEDS ORDERED: SODIUM CHLORIDE 0.9% FLUSH 10 ML FLUSH IV FLUSH PRN (14:15)
[2017-07-27] MEDS ORDERED: MISC INFORMATION XX ONE (14:15)
[2017-07-27] MEDS: LEVOFLOXACIN 750 MG PREMIX INJ 150 ML IV SCH (14:47)
[2017-07-27] MEDS: ACETAMINOPHEN 325 MG TAB PO PRN (17:14)
[2017-07-27] MEDS: FUROSEMIDE 40 MG/4 ML VIAL IV PUSH SCH (17:40)
[2017-07-28] VITALS (10 sets, daily range): BP systolic 109–124; BP diastolic 71–74; PULSE 76–87; RESP 16–22; TEMP 97.8–99.1; O2SAT 90–98
[2017-07-28] MEDS: AMIODARONE INJ 450 MG in DEXTROSE 5% IN WATE(EXCEL) INJ 241 ML IV PRN ×4 (00:01→14:00)
[2017-07-28] MEDS: RESP: ALBUTEROL 2.5 MG/IPRATROPIUM 0.5 MG NEB (SCH) NEB ×7 (00:21→23:41)
[2017-07-28] MEDS ORDERED: FUROSEMIDE 40 MG/4 ML VIAL IV PUSH ONE (01:00)
[2017-07-28] MEDS: ACETAMINOPHEN 325 MG TAB PO PRN (01:09)
[2017-07-28] MEDS: CHLORHEXIDINE GLUCONATE 2 % 1 PACK (2 CLOTHS) TOP SCH (04:00)
[2017-07-28] MEDS: INSULIN ASPART SUPPLEMENTAL SCALE SQ SCH ×6 (05:07→21:10)
[2017-07-28 05:56] LABS: AUTOMATED NEUTROPHIL # 14.5 TH/MM3 (1.8-7.7); BASOPHIL % 0.1 % (0.0-2.0); HEMO FLAGS DIFF FINAL; LYMPH % 3.8 % (9.0-44.0); LYMPHOCYTE # 0.6 TH/MM3 (1.0-4.8); MEAN CELL VOLUME 80.3 FL (80.0-100.0); MEAN CORPUSCULAR HEMOGLOBIN 26.5 PG (27.0-34.0); MONO % 6.6 % (0.0-8.0); NEUT % 89.5 % (16.0-70.0); PLATELET COUNT 218 TH/MM3 (150-450); RED BLOOD COUNT 5.35 MIL/MM3 (4.50-5.90); RED CELL DISTRIBUTION WIDTH 15.4 % (11.6-17.2); WHITE BLOOD COUNT 16.2 TH/MM3 (4.0-11.0)
[2017-07-28 06:28] LABS: BICARBONATE 26.1 MEQ/L (21.0-32.0); MAGNESIUM 1.7 MG/DL (1.5-2.5)
[2017-07-28 06:31] LABS: HDL CHOLESTEROL 45.1 MG/DL (40.0-60.0)
--- NOTE | 2017-07-28 06:51 | RADRPT ---
EXAM DATE/TIME: 07/28/2017 06:32 [facility] COMPARISON: CHEST SINGLE AP, July 27, 2017, 8:22. INDICATIONS : Short of breath. MEDICAL HISTORY : Hypertension. Hypercholesterolemia. Diabetes. SURGICAL HISTORY : None. ENCOUNTER: Subsequent ACUITY: 4 - 6 days PAIN SCORE: 0/10 LOCATION: Bilateral chest FINDINGS: The heart size is mildly enlarged. There is diffuse increased interstitial density throughout. There is a nodular density at the right base. A significant effusion is not seen. CONCLUSION: Diffuse interstitial markings likely related to pulmonary edema and possible CHF. Hipolito Strickland MD on July 28, 2017 at 6:49 Board Certified Radiologist. This report was verified electronically.
--- NOTE | 2017-07-28 07:51 | HHI.CCPN ---
Subjective Remarks/Hospital Course 07/24: 61-year-old male with medical history significant for hypertension, insulin-dependent diabetes mellitus who was in his usual state of health today. While being driven by a family member he suddenly became unresponsive with a seizure. He was taken out of his car and had bystander CPR for 3-5 minutes by center director lead teacher who happened to be around. On EMS arrival patient was noted to be in V. fib arrest. He underwent DC shock 3 following which she had return of spontaneous circulation. He was having spontaneous respirations which were agonal and he is brought to the ER by EMS. Patient was comatose with GCS of 3 per documentation and did not appear to be protecting his airway hence was intubated for airway protection and placed on mechanical ventilation in the ER. He did receive it, date and succinylcholine for intubation. He was subsequently initiated on propofol for sedation as he was fighting the ventilator however dropped his blood pressure hence propofol was held. Dr. Rankin from cardiology was contacted regarding V. fib arrest and did not want to proceed with cardiac catheterization at that time. Critical care medicine was contacted to see if patient was a candidate for therapeutic hypothermia. I came to the ER and evaluated the patient immediately on being notified. His labs and head CT were pending at the time of my evaluation. Patient was comatose off propofol not responding to painful stimuli intubated on mechanical ventilation. Per family patient was absolutely asymptomatic prior to becoming unresponsive. History was obtained by reviewing records and discussion with ER physician. 07/25: Patient remains on therapeutic hypothermia protocol. Urine drug screen resulted at 1 AM and was positive for cocaine though family had denied any drug use to ER physician. 07/26: Patient completed therapeutic hypothermia protocol. He was awake and alert on lightening sedation and following commands. Underwent C Pap trials which he tolerated well and was subsequently extubated. He is requiring 15 L O2 currently. Received 1 dose of Solu-Medrol 125 mg IV in view of history of heavy smoking for suspected COPD contributing to respiratory failure. He is otherwise awake and alert, following commands following extubation. Patient's tells me that he had remote history of cocaine use however is not aware of any recent cocaine use. 07/27: Awake and alert. Following commands. Diuresed well with Bumex overnight. O2 requirement 8 L/m this morning. Still has some shortness of breath. Drops O2 sats to 86% on taking off oxygen. Admits to using cocaine on the day of his cardiac arrest when [place] was [place] the auto show. Tells me he uses cocaine once every 6 months or so. On inquiring about alcohol intake he states that he has a few drinks every few weeks and denies daily alcohol consumption. He smokes half a pack a day. Denies any chest pain currently. 2-D echo showed LVEF 20-25% with global hypokinesis. 07/28: Required increasing O2 and is on 10 L/m nasal cannula. Given additional Lasix last night and is diuresing well. Denies any chest pain. Underwent cardiac catheterization yesterday with three-vessel disease and had proximal LAD stenting with bare metal stent. Objective Vital Signs Date Time Temp Pulse Resp B/P (MAP) Pulse Ox O2 Delivery O2 Flow Rate FiO2 07/28/17 03:00 94 Simple Mask 10.00 07/28/17 03:00 86 07/28/17 03:00 99.1 20 118/71 (87) 07/26/17 07:30 40 Intake and Output 07/28/17 07/28/17 07/29/17 08:00 16:00 00:00 Intake Total 1070 ml Output Total 3300 ml Balance -2230 ml Result Diagram: 07/28/17 0445 07/28/17 0445 Imaging Chest x-ray portable which was personally reviewed: ET tube above albert, lung danielle appear clear with no obvious infiltrates. Head CT pending at the time of this dictation Objective Remarks HEENT/ Neuro: Awake, alert, oriented 3, following commands, moving all 4 extremities, no pallor, tongue/ mucosa moist Neck: No JVD Chest/Pulm: good air entry bilaterally, scattered rhonchi, bibasilar crackles, no wheezing CVS: S1-S2 regular, no murmur GI/abdomen: soft, nontender, bowel sounds sluggish Extremities: Warm bilaterally, no edema A/P Assessment and Plan 61-year-old male with: Out of hospital V. fib arrest status post CPR Acute OR: Possibly related to cocaine use Ischemic cardiomyopathy Acute Decompensated CHF Acute respiratory failure Suspected COPD with exacerbation Hypotension (resolved) Insulin-dependent diabetes mellitus Encephalopathy (resolved) Cocaine positive Plan: Neuro: Completed therapeutic hypothermia protocol. Follow neuro checks. Off all sedation. Patient tested positive for cocaine. Cardiovascular: Troponin greater than 40. Cardiology consult with Dr. Rankin. ED physician d/w with Dr. Rankin following V. fib arrest and he was not planning cardiac catheterization until neuro status improved following hypothermia protocol. Off heparin gtt. Continue amiodarone gtt. titrated off Levophed following extubation. BNP elevated and 2-D echo revealed LVEF 20-25% with global hypokinesis. Chest x-ray done on 07/28 reveals pulmonary edema, responding with diuresis, continue IV lasix. Added Coreg 6.25 mg every 12 hourly, lisinopril 5 mg by mouth daily and Lipitor 20 mg daily starting 07/27. Continue ASA, plavix per cardiology s/p cardiac [id number] which revealed LVEF 30-35%, 3 vessel disease with bare metal stenting to proximal LAD consider switching amiodarone to PO when okay with cardiology. Cardiology to decide regarding timing for ICD evaluation. Pulmonary: Extubated following C Pap trial. Continue supplemental O2 by nasal cannula, bronchodilators as needed. Taper Solu-Medrol. Continue diuresis. Follow-up chest x-ray GI/liver: Advance PO diet Renal/: Strict intake output, monitor and replete electrolytes, follow BUN creatinine. Continue diuresis. ID: On Levaquin for empiric antibiotic coverage in view of suspected COPD exacerbation, plan to stop after 7 days of therapy. Heme: Follow CBC and coags. Off heparin gtt since 07/27 Endocrine: Continue Levemir 5 units subcutaneously every 12 hourly along with sliding scale insulin in view of insulin-dependent diabetes mellitus. Hold Levemir today in view of hypoglycemia and nothing by mouth status for cardiac cath. Prophylaxis: Pepcid/SCDs. start lovenox 40mg daily 07/28 Updated patient's regarding current clinical status and plan of care and she voiced understanding and was agreeable on 07/27. Condition guarded. Status post cardiac arrest with acute OR, ischemic cardiomyopathy, CHF, COPD, cocaine positive and respiratory failure. Rip Curtis MD Jul 28, 2017 07:51
[2017-07-28] MEDS: methylPREDNISolone SOD SUCC 40 MG/1 ML VIAL IV PUSH SCH (08:55)
[2017-07-28] MEDS: FUROSEMIDE 40 MG/4 ML VIAL IV PUSH SCH ×2 (08:56→18:00)
[2017-07-28] MEDS: CARVEDILOL 6.25 MG TAB PO SCH ×2 (08:56→21:11)
[2017-07-28] MEDS: CLOPIDOGREL 75 MG TAB PO SCH (08:56)
[2017-07-28] MEDS: LISINOPRIL 5 MG TAB PO SCH (08:56)
[2017-07-28] MEDS: ASPIRIN 81 MG CHEW TAB PO SCH (08:57)
[2017-07-28] MEDS: ATORVASTATIN 20 MG TAB PO SCH (08:57)
[2017-07-28] MEDS: SODIUM CHLORIDE 0.9% FLUSH 10 ML FLUSH IV FLUSH SCH ×2 (09:00→21:12)
[2017-07-28] MEDS: INSULIN DETEMIR 100 UNITS/ML VIAL SQ SCH ×2 (09:16→21:11)
[2017-07-28] MEDS: POTASSIUM CHLOR 20 MEQ PREMIX 100 ML IV PRN (09:16)
[2017-07-28] MEDS ORDERED: SPIRONOLACTONE 25 MG TAB PO ONE (09:30)
[2017-07-28] MEDS: LEVOFLOXACIN 750 MG PREMIX INJ 150 ML IV SCH (14:00)
--- NOTE | 2017-07-28 14:05 | PD.CARD.PN ---
Subjective Subjective Remarks extubated, alert in nad, denies chest pain or dyspnea Objective Medications Current Medications Medications (Trade) Dose Ordered Sig/Laxmi Route Start Time Stop Time Status Last Admin Amiodarone HCl 450 mg/Dextrose 250 ml @ 33.33 mls/ hr Q7H31M PRN IV 07/24/17 16:22 07/28/17 00:01 (Ativan Inj) 1 mg Q1H PRN IV PUSH 07/24/17 16:30 (Lacrilube Opht Oint) 1 applic Q4H PRN EACH EYE 07/24/17 16:30 Miscellaneous Information 0 ml @ 0 mls/hr UNSCH IV 07/24/17 16:30 Miscellaneous Information 1 Q361D XX 07/24/17 16:30 (Chlorhexidine 2% Cloth) 3 pack Taper DAILY@04 TOP 07/25/17 04:00 07/21/18 03:59 07/28/17 04:00 (Chlorhexidine 2% Cloth) 3 pack UNSCH PRN TOP 07/24/17 16:30 Potassium Chloride 100 ml @ 50 mls/hr Q2H PRN IV 07/24/17 16:30 Potassium Chloride 100 ml @ 50 mls/hr Q2H PRN IV 07/24/17 16:30 07/28/17 09:16 (K-Lyte Cl Eff) 50 meq UNSCH PRN PO 07/24/17 16:30 Potassium Chloride 100 ml @ 25 mls/hr UNSCH PRN IV 07/24/17 16:30 07/26/17 08:50 Potassium Chloride 100 ml @ 50 mls/hr Q2H PRN IV 07/24/17 16:30 07/25/17 00:10 Magnesium Sulfate 4 gm/Sodium Chloride 100 ml @ 50 mls/hr UNSCH PRN IV 07/24/17 16:30 (Mag-Ox) 800 mg UNSCH PRN PO 07/24/17 16:30 Magnesium Sulfate 2 gm/Sodium Chloride 100 ml @ 50 mls/hr UNSCH PRN IV 07/24/17 16:30 07/26/17 02:23 (K-Phos) 2,000 mg Q4H PRN PO 07/24/17 16:30 Sodium Phosphate 30 mmol/Sodium Chloride 250 ml @ 42 mls/hr UNSCH PRN IV 07/24/17 16:30 (K-Phos) 2,000 mg UNSCH PRN PO/TUBE 07/24/17 16:30 Potassium Phosphate 30 mmol/ Sodium Chloride 260 ml @ 42 mls/hr UNSCH PRN IV 07/24/17 16:30 (Levemir Inj) 5 units Q12HR SQ 07/24/17 21:00 07/28/17 09:16 (NovoLOG SUPPLEMENTAL SCALE) 1 Q4HR SQ 07/24/17 20:00 07/28/17 09:15 (D50w (Vial) Inj) 25 ml UNSCH PRN IV 07/24/17 17:30 07/26/17 11:59 (Glucagon Inj) 1 mg UNSCH PRN IM/SQ 07/24/17 17:30 Norepinephrine Bitartrate 4 mg/ Sodium Chloride 250 ml @ 7.5 mls/hr TITRATE PRN IV 07/26/17 06:15 (Duoneb Neb) 1 ampule Q4HR NEB NEB 07/26/17 12:45 07/28/17 13:51 (Duoneb Neb) 1 ampule Q2HR NEB PRN NEB 07/26/17 12:45 Levofloxacin/ Dextrose 150 ml @ 100 mls/hr Q24H IV 07/26/17 14:00 07/27/17 14:47 (Tylenol) 650 mg Q6H PRN PO 07/26/17 15:30 07/28/17 01:09 (Restoril) 15 mg HS PRN PO 07/27/17 01:00 07/27/17 01:33 (Coreg) 6.25 mg Q12HR PO 07/27/17 07:15 07/28/17 08:56 (Lipitor) 20 mg DAILY PO 07/27/17 09:00 07/28/17 08:57 (Prinivil) 5 mg DAILY PO 07/27/17 09:00 07/28/17 08:56 (SoluMEDROL INJ) 40 mg Q12HR IV PUSH 07/27/17 09:00 07/28/17 08:55 (Lasix Inj) 40 mg BID@09,18 IV PUSH 07/27/17 18:00 07/28/17 08:56 (NS Flush) 2 ml UNSCH PRN IV FLUSH 07/27/17 14:15 (NS Flush) 2 ml BID IV FLUSH 07/27/17 21:00 07/28/17 09:00 (Aspirin Chew) 162 mg DAILY PO 07/28/17 09:00 07/28/17 08:57 (Plavix) 75 mg DAILY PO 07/28/17 09:00 07/28/17 08:56 (Aldactone) 25 mg BID@09,18 PO 07/28/17 18:00 Vital Signs / I&O Vital Signs Date Time Temp Pulse Resp B/P (MAP) Pulse Ox O2 Delivery O2 Flow Rate FiO2 07/28/17 13:51 95 Nasal Cannula 4.00 07/28/17 11:00 86 07/28/17 11:00 97 Nasal Cannula 6.00 07/28/17 11:00 98.1 86 16 124/72 (89) 95 07/28/17 10:03 95 Nasal Cannula 6.00 07/28/17 07:00 95 Simple Mask 10.00 07/28/17 07:00 84 07/28/17 07:00 97.8 84 18 124/72 (89) 95 Arterial Line 07/28/17 03:00 94 Simple Mask 10.00 07/28/17 03:00 86 07/28/17 03:00 99.1 86 20 118/71 (87) 94 07/28/17 01:52 20 07/28/17 00:01 87 129/74 07/27/17 23:00 94 Simple Mask 10.00 07/27/17 23:00 90 07/27/17 23:00 97.9 95 25 126/71 (89) 93 07/27/17 21:50 97 Simple Mask 10.00 07/27/17 20:00 108 07/27/17 20:00 98.7 107 18 121/71 (88) 93 120/67 (84) 07/27/17 20:00 94 Simple Mask 10.00 07/27/17 15:00 98.3 103 16 135/70 (91) 96 140/76 (97) 07/27/17 15:00 95 Nasal Cannula 4.00 07/27/17 15:00 103 I/O 07/27/17 07/27/17 07/27/17 07/28/17 07/28/17 07/28/17 06:59 14:59 22:59 06:59 14:59 22:59 Intake Total 488 ml 200 ml 400 ml 1320 ml Output Total 2000 ml 3325 ml 3300 ml Balance -1512 ml 200 ml -2925 ml -1980 ml Intake Oral 150 ml 100 ml 720 ml IV Total 338 ml 200 ml 300 ml 600 ml Output Urine Total 2000 ml 3325 ml 3300 ml # Bowel Movements 0 0 0 Physical Exam GENERAL: SKIN: Warm and dry. HEAD: Normocephalic. EYES: No scleral icterus. No injection or drainage. NECK: Supple, trachea midline. No JVD or lymphadenopathy. CARDIOVASCULAR: Regular rate and rhythm without murmurs, gallops, or rubs. RESPIRATORY: Breath sounds equal bilaterally. No accessory muscle use. GASTROINTESTINAL: Abdomen soft, non-tender, nondistended. MUSCULOSKELETAL: No cyanosis, or edema. BACK: Nontender without obvious deformity. No CVA tenderness. Laboratory Laboratory Tests Test 07/27/17 14:53 07/28/17 04:45 Magnesium Level 1.8 MG/DL 1.7 MG/DL White Blood Count 16.2 TH/MM3 Red Blood Count 5.35 MIL/MM3 Hemoglobin 14.2 GM/DL Hematocrit 43.0 % Mean Corpuscular Volume 80.3 FL Mean Corpuscular Hemoglobin 26.5 PG Mean Corpuscular Hemoglobin Concent 33.0 % Red Cell Distribution Width 15.4 % Platelet Count 218 TH/MM3 Mean Platelet Volume 9.0 FL Neutrophils (%) (Auto) 89.5 % Lymphocytes (%) (Auto) 3.8 % Monocytes (%) (Auto) 6.6 % Eosinophils (%) (Auto) 0.0 % Basophils (%) (Auto) 0.1 % Neutrophils # (Auto) 14.5 TH/MM3 Lymphocytes # (Auto) 0.6 TH/MM3 Monocytes # (Auto) 1.1 TH/MM3 Eosinophils # (Auto) 0.0 TH/MM3 Basophils # (Auto) 0.0 TH/MM3 CBC Comment DIFF FINAL Differential Comment Blood Urea Nitrogen 27 MG/DL Creatinine 1.02 MG/DL Random Glucose 174 MG/DL Calcium Level 8.0 MG/DL Sodium Level 139 MEQ/L Potassium Level 3.0 MEQ/L Chloride Level 101 MEQ/L Carbon Dioxide Level 26.1 MEQ/L Anion Gap 12 MEQ/L Estimat Glomerular Filtration Rate 75 ML/MIN B-Type Natriuretic Peptide 619 PG/ML Triglycerides Level 95 MG/DL Cholesterol Level 90 MG/DL LDL Cholesterol 26 MG/DL HDL Cholesterol 45.1 MG/DL Cholesterol/HDL Ratio 1.99 RATIO Imaging Last 24 hours Impressions Chest X-Ray 07/28/17 0000 Signed Impressions: Service Date/Time: , July 28, 2017 06:32 - CONCLUSION: Diffuse interstitial markings likely related to pulmonary edema and possible CHF. Hipolito Strickland MD Assessment and Plan Problem List: (1) Cardiac arrest ICD Codes: I46.9 - Cardiac arrest, cause unspecified Status: Acute (2) Seizure disorder ICD Codes: G40.909 - Epilepsy, unspecified, not intractable, without status epilepticus (3) Ventricular fibrillation ICD Codes: I49.01 - Ventricular fibrillation (4) NSTEMI (non-ST elevated myocardial infarction) ICD Codes: I21.4 - Non-ST elevation (NSTEMI) myocardial infarction Assessment and Plan 1.) Cardiac arrest/CAD/Cardiomyopathy - alert in nad, pod#1 pci bms prox mid lad , continue aspirin, plavix, coreg, lisinopril, lipitor, f/u neuro, EP and ct surg recs, add aldactone 25 mg bid, f/u bmp, bnp, mag in am Julio Cesar Rankin MD Jul 28, 2017 14:05
--- NOTE | 2017-07-28 15:45 | PD.CAR.PN ---
CVT Progress Note Subjective/Hospital Course: sts data discussed with pt RISK SCORES About the STS Risk Calculator Procedure: CAB Only Risk of Mortality: 1.869% Morbidity or Mortality: 20.679% Long Length of Stay: 10.485% Short Length of Stay: 30.772% Permanent Stroke: 1.694% Prolonged Ventilation: 16.162% DSW Infection: 0.998% Renal Failure: 3.684% Reoperation: 6.489% Objective: Vital Signs Date Time Temp Pulse Resp B/P (MAP) Pulse Ox O2 Delivery O2 Flow Rate FiO2 07/28/17 14:00 86 130/70 07/28/17 14:00 73 130/70 07/28/17 13:51 95 Nasal Cannula 4.00 07/28/17 11:00 86 07/28/17 11:00 97 Nasal Cannula 6.00 07/28/17 11:00 98.1 86 16 124/72 (89) 95 07/28/17 10:03 95 Nasal Cannula 6.00 07/28/17 07:00 95 Simple Mask 10.00 07/28/17 07:00 84 07/28/17 07:00 97.8 84 18 124/72 (89) 95 Arterial Line 07/28/17 03:00 94 Simple Mask 10.00 07/28/17 03:00 86 07/28/17 03:00 99.1 86 20 118/71 (87) 94 07/28/17 01:52 20 07/28/17 00:01 87 129/74 07/27/17 23:00 94 Simple Mask 10.00 07/27/17 23:00 90 07/27/17 23:00 97.9 95 25 126/71 (89) 93 07/27/17 21:50 97 Simple Mask 10.00 07/27/17 20:00 108 07/27/17 20:00 98.7 107 18 121/71 (88) 93 120/67 (84) 07/27/17 20:00 94 Simple Mask 10.00 Labs: Laboratory Tests Test 07/28/17 04:45 White Blood Count 16.2 TH/MM3 (4.0-11.0) Red Blood Count 5.35 MIL/MM3 (4.50-5.90) Hemoglobin 14.2 GM/DL (13.0-17.0) Hematocrit 43.0 % (39.0-51.0) Mean Corpuscular Volume 80.3 FL (80.0-100.0) Mean Corpuscular Hemoglobin 26.5 PG (27.0-34.0) Mean Corpuscular Hemoglobin Concent 33.0 % (32.0-36.0) Red Cell Distribution Width 15.4 % (11.6-17.2) Platelet Count 218 TH/MM3 (150-450) Mean Platelet Volume 9.0 FL (7.0-11.0) Neutrophils (%) (Auto) 89.5 % (16.0-70.0) Lymphocytes (%) (Auto) 3.8 % (9.0-44.0) Monocytes (%) (Auto) 6.6 % (0.0-8.0) Eosinophils (%) (Auto) 0.0 % (0.0-4.0) Basophils (%) (Auto) 0.1 % (0.0-2.0) Neutrophils # (Auto) 14.5 TH/MM3 (1.8-7.7) Lymphocytes # (Auto) 0.6 TH/MM3 (1.0-4.8) Monocytes # (Auto) 1.1 TH/MM3 (0-0.9) Eosinophils # (Auto) 0.0 TH/MM3 (0-0.4) Basophils # (Auto) 0.0 TH/MM3 (0-0.2) CBC Comment DIFF FINAL Differential Comment Blood Urea Nitrogen 27 MG/DL (7-18) Creatinine 1.02 MG/DL (0.60-1.30) Random Glucose 174 MG/DL (74-106) Calcium Level 8.0 MG/DL (8.5-10.1) Magnesium Level 1.7 MG/DL (1.5-2.5) Sodium Level 139 MEQ/L (136-145) Potassium Level 3.0 MEQ/L (3.5-5.1) Chloride Level 101 MEQ/L (98-107) Carbon Dioxide Level 26.1 MEQ/L (21.0-32.0) Anion Gap 12 MEQ/L (5-15) Estimat Glomerular Filtration Rate 75 ML/MIN (>89) B-Type Natriuretic Peptide 619 PG/ML (0-100) Triglycerides Level 95 MG/DL (42-150) Cholesterol Level 90 MG/DL (120-200) LDL Cholesterol 26 MG/DL (0-99) HDL Cholesterol 45.1 MG/DL (40.0-60.0) Cholesterol/HDL Ratio 1.99 RATIO Result Diagram: 07/28/175 07/28/17 0445 (1) Cardiac arrest (2) Seizure disorder (3) Ventricular fibrillation (4) NSTEMI (non-ST elevated myocardial infarction) Jen Young Jul 28, 2017 15:45
--- NOTE | 2017-07-28 16:10 | EKG ---
Date Performed: 07/28/2017 Time Performed: 04:53:48 PTAGE: 61 years EKG: Sinus rhythm Lateral ST-T changes suggest myocardial injury/ischemia When compared to previous tracing, previousl y present Inferolateral infarct changes have improved clinical corrolation is Suggested. Abnormal ECG PREVIOUS TRACING : 07/24/2017 15.40 DOCTOR: Riya Saha Interpretating Date/Time 07/28/2017 16:09:42
[2017-07-28] MEDS: SPIRONOLACTONE 25 MG TAB PO SCH (18:00)
[2017-07-28] MEDS: TEMAZEPAM 15 MG CAP PO PRN (23:23)
[2017-07-29] VITALS (13 sets, daily range): BP systolic 96–128; BP diastolic 60–84; PULSE 62–86; RESP 16–20; TEMP 97.6–99; O2SAT 91–98
[2017-07-29] MEDS: CHLORHEXIDINE GLUCONATE 2 % 1 PACK (2 CLOTHS) TOP SCH (04:00)
[2017-07-29] MEDS: INSULIN ASPART SUPPLEMENTAL SCALE SQ SCH ×7 (04:00→23:41)
[2017-07-29] MEDS: RESP: ALBUTEROL 2.5 MG/IPRATROPIUM 0.5 MG NEB (SCH) NEB ×4 (04:08→16:17)
--- NOTE | 2017-07-29 05:44 | MB ---
cc: MIKEY GOODMAN M.D., HANSCY M.D. DATE OF CONSULTATION 07/28/2017 REASON FOR CONSULTATION Sudden , for evaluation for possible device insertion. HISTORY OF PRESENT ILLNESS Mr. Esparza is a 61-year-old gentleman with a history of high blood pressure, diabetes mellitus, one episode of sudden on the . He was admitted, code was called. Subsequently during hospitalization, PTCA plus stent to LAD was performed by Dr. Goodman. 2-D echo read by Dr. Marte indicated ejection fraction of 20%, on left heart cath was reported as 30%. I was consulted for further evaluation and management. The chart was reviewed. The patient was evaluated. ALLERGIES None. SOCIAL HISTORY Currently negative for smoking and drinking. FAMILY HISTORY Noncontributory to his current medical condition. MEDICATIONS The gentleman is on - 1. Levaquin. 2. Magnesium. 3. Levophed p.r.n. 4. Potassium. 5. Albuterol inhaler. 6. Aspirin 160 mg a day. 7. Lipitor 20 mg a day. 8. Coreg 625 mg q.12 hours. 9. Plavix 75 mg a day. 10. Lasix. 11. Insulin. 12. Lisinopril 5 mg a day. 13. Methylprednisolone. 14. Aldactone 25 mg a day. REVIEW OF SYSTEMS Currently he refers no chest pain or discomfort. No shortness of breath. PHYSICAL EXAMINATION GENERAL: Alert, fully oriented. VITAL SIGNS: His blood pressure was 109/74, pulse 84, respiratory rate 18. LUNGS: Ventilated. CARDIOVASCULAR: S1-S2. There is a discrete systolic ejection murmur. ABDOMEN: Soft. No mass. No bruit. EXTREMITIES: No edema. ELECTROCARDIOGRAM Sinus rhythm, diffuse ST changes. LABORATORY DATA Hemoglobin 14.2, white blood cells 16.2. Potassium is 3.0 today, creatinine 1.02. Pro-BNP around 653. Troponin was greater than 40 on hospitalization. INR is 1.0. ASSESSMENT AND RECOMMENDATIONS Mr. Esparza is in acute ischemic syndrome. He has a stent to LAD. The sudden may be the result of ischemia. The patient was shocked twice due to ventricular fibrillation. He has been revascularized. There is also some other target lesion apparently that they claim can be managed with . At this point my recommendation is electrophysiology study. If tachyarrhythmia is induced, then defibrillator should be implanted but if there is no tachyarrhythmia, then the gentleman would need a defibrillatory vest and further evaluation by his MD in 60 days for possible left ejection fraction measurement. As mentioned before, the gentleman is not fully revascularized. Case discussed extensively with the patient. Possible electrophysiology study during hospitalization. Ian Paz MD HS/SSB /11:37 PM /5:24 AM
--- NOTE | 2017-07-29 05:59 | RADRPT ---
EXAM DATE/TIME: 07/29/2017 04:43 [facility] COMPARISON: CHEST SINGLE AP, July 28, 2017, 6:32. INDICATIONS : Evaluate for Pulmonary Edema MEDICAL HISTORY : Hypertension. Hypercholesterolemia. Diabetes. SURGICAL HISTORY : None. ENCOUNTER: Subsequent ACUITY: 4 - 6 days PAIN SCORE: 8/10 LOCATION: Bilateral chest FINDINGS: Portable AP view of the chest demonstrates a normal-sized cardiac silhouette. EKG lines overlie the p atient. There is relatively diffuse interstitial and airspace opacity bilaterally similar to the prio r study. No pleural effusion or pneumothorax is identified. CONCLUSION: Stable chest x-ray with interstitial and airspace opacities which could represent pulmonary edema in the appropriate clinical setting. Hipolito Miguel MD on July 29, 2017 at 5:57 Board Certified Radiologist. This report was verified electronically.
[2017-07-29 06:12] LABS: AUTOMATED NEUTROPHIL # 14.7 TH/MM3 (1.8-7.7); BASOPHIL % 0.2 % (0.0-2.0); HEMO FLAGS DIFF FINAL; LYMPHOCYTE # 1.4 TH/MM3 (1.0-4.8); MEAN CELL VOLUME 80.7 FL (80.0-100.0); MEAN CORPUSCULAR HEMOGLOBIN 26.7 PG (27.0-34.0); MEAN CORPUSCULAR HGB CONC 33.1 % (32.0-36.0); MONO % 8.4 % (0.0-8.0); NEUT % 83.4 % (16.0-70.0); PLATELET COUNT 212 TH/MM3 (150-450); RED BLOOD COUNT 5.33 MIL/MM3 (4.50-5.90); RED CELL DISTRIBUTION WIDTH 15.2 % (11.6-17.2); WHITE BLOOD COUNT 17.7 TH/MM3 (4.0-11.0)
[2017-07-29 06:22] LABS: ANION GAP 8 MEQ/L (5-15); AST (GOT) 28 U/L (15-37); BICARBONATE 28.8 MEQ/L (21.0-32.0); BLOOD UREA NITROGEN 35 MG/DL (7-18); CHLORIDE 101 MEQ/L (98-107); GLOMERULAR FILTRATION RATE 90 ML/MIN (>89); MAGNESIUM 1.8 MG/DL (1.5-2.5); POTASSIUM 3.1 MEQ/L (3.5-5.1); SODIUM (NA) 138 MEQ/L (136-145)
[2017-07-29 06:25] LABS: ALKALINE PHOSPHATASE 80 U/L (45-117); ALT (GPT) 35 U/L (12-78); TOTAL BILIRUBIN ADULT 0.9 MG/DL (0.2-1.0)
[2017-07-29] MEDS: AMIODARONE INJ 450 MG in DEXTROSE 5% IN WATE(EXCEL) INJ 241 ML IV PRN ×2 (06:47)
[2017-07-29] MEDS: POTASSIUM CHLOR 20 MEQ PREMIX 100 ML IV PRN (07:11)
--- NOTE | 2017-07-29 08:10 | MB ---
cc: ELPIDIO BUENO MD DATE OF CONSULTATION: 07/28/2017 1955 HISTORY OF PRESENT ILLNESS A 61-year-old male who was here visiting with his family from [place]. While being driven by a family member he became suddenly unresponsive with apparent seizure. They stopped and he was taken out of the car and a bystander did CPR for about 3-5 minutes, by a digital assistant who happened to be around. On EMS arrival the patient was found to be in ventricular fibrillation. He underwent defibrillation x3, had returned spontaneous circulation. However, the breathing was agonal. The patient had GCS of 3, per documentation and was not protecting his airway, therefore was intubated. They contacted Dr. Rankin regarding the V-fib arrest and did not want to proceed with cardiac cath at that time, however the patient underwent therapeutic hypothermia protocol which was then completed on 07/26. They also did a urine drug screen which was positive for cocaine and per the notes and the family apparently he does it every 6 months or so. Family was not aware of it at the time. After the completion of the therapeutic protocol he was awake and alert, following commands. He was extubated without difficulty. He does not recall the events of the arrest and does have some short recall memory problem, however, he is alert and oriented. The patient then went to the cardiac laborer electroplating on 07/27 for apparently a non-STEMI and underwent right and left heart catheterization and placement of a bare metal stent to the proximal LAD. Right heart pressures showed PA pressures of 30/14, right atrial pressure of 5, cardiac output 8.4, index of 4, SVR of 884, ejection fraction 30-35%, 50% stenosis in the proximal segment of the right coronary artery and additional 80% stenosis more distal. The posterolateral branch had an ostial 60% lesion. The left main had no significant disease. The LAD had a 95% proximal mid lesion. The patient had the LAD from a 95 to 0% with BAILEY-III flow. He did load the patient was 600 mg of Plavix and has been on Plavix since the catheterization. We were consulted to evaluate for if the RCA and the lateral branch of the first OM would need to be revascularized. The patient's 2-D Echo did show EF of 20-25%, however on the cath it showed EF of 30-35%, trace tricuspid regurgitation, mild mitral regurgitation. PAST MEDICAL HISTORY 1. Hypertension. 2. Insulin dependent diabetes mellitus. PAST SURGICAL HISTORY No past surgical history noted. ALLERGIES No known allergies. MEDICATION No past meds documented. REVIEW OF SYSTEMS As above in HPI, otherwise 12 systems unremarkable. PHYSICAL EXAMINATION GENERAL: On exam the patient is currently alert and oriented with some slight short-term recall difficulty. VITAL SIGNS: Blood pressure 124/70, heart rate of 86, temperature max 98.1, O2 sat 95 on 4 liters. The patient is alert and oriented. HEENT: Head is normocephalic, atraumatic. Pupils equal and reactive. Oral mucosa pink, moist. NECK: Supple. No JVD. HEART: Heart sounds S1-S2, regular rate and rhythm. No audible rubs, murmurs, gallops. LUNGS: Diminished in the bases. He has got some scattered rhonchi. Some few basilar crackles. No wheezing. ABDOMEN: Soft, nontender. No masses or organomegaly. EXTREMITIES: No cyanosis, clubbing or edema. LABORATORY FINDINGS Shows hemoglobin 14, hematocrit of 43, white cell count 16, platelet count 218, sodium 139, potassium 3.0, BUN of 27, creatinine 1.02, glucose 174, mag level 1.7, BNP is 619, triglycerides 95, cholesterol 90, LDL 26, HDL 45. IMAGING STUDIES Chest x-ray on 07/28 shows some diffuse interstitial markings concern for pulmonary edema versus CHF. There was a head CT scan done initially in the emergency department which showed no acute intracranial abnormalities, remote lacunar infarct, right caudate nucleus. EKG Initial EKG did show some anterolateral ischemia. IMPRESSION 1. This is a 61-year-old male with out of hospital V-fib arrest status post CPR, therapeutic hypothermia protocol. 2. Acute MA, possibly related to cocaine use. 3. Ischemic cardiomyopathy with ejection fraction of 30-35%, acute decompensated CHF, status post respiratory failure, insulin-dependent diabetes mellitus. 4. Encephalopathy, resolved. CT scan did show small lacunar infarct, right caudate nucleus. Cocaine use, also three-vessel disease with status post bare metal stent to the LAD, also stenosis of the posterolateral branch and the right coronary artery. Evaluation of the cardiac films will be done by Dr. Elpidio Bueno, however, the patient has been loaded with Plavix, his last dose of Plavix was today. Evaluation for need for further surgical intervention per his discretion. Those films again will be reviewed by Dr. Bueno and that decision will be made. Dictated by: CHARI Chiang Agree with above. Given his ongoing drug use, severe cardiomyopathy and likely non-cardiac related pulmonary insufficiency, I do not think that he will benefit from Cardiac revascularization surgery. Furthermore, his targets are small at best. My recommendation would be to manage him medically. Should he have recurrent symptoms, then perhaps a stress test to delineate the anatomic area of ischemia followed by PCI to the target vessel would be a better option. Elpidio GANDHI/NAFISA /2:49 PM /8:07 AM MTDMichele
[2017-07-29] MEDS: INSULIN DETEMIR 100 UNITS/ML VIAL SQ SCH ×2 (08:18→20:51)
[2017-07-29] MEDS: methylPREDNISolone SOD SUCC 40 MG/1 ML VIAL IV PUSH SCH (08:18)
[2017-07-29] MEDS: CLOPIDOGREL 75 MG TAB PO SCH (08:19)
[2017-07-29] MEDS: ASPIRIN 81 MG CHEW TAB PO SCH (08:19)
[2017-07-29] MEDS: FUROSEMIDE 40 MG/4 ML VIAL IV PUSH SCH ×2 (08:20→17:33)
[2017-07-29] MEDS: LISINOPRIL 5 MG TAB PO SCH (08:20)
[2017-07-29] MEDS: SODIUM CHLORIDE 0.9% FLUSH 10 ML FLUSH IV FLUSH SCH ×2 (08:21→20:55)
[2017-07-29] MEDS: CARVEDILOL 6.25 MG TAB PO SCH ×2 (08:21→20:51)
[2017-07-29] MEDS: ATORVASTATIN 20 MG TAB PO SCH (08:21)
[2017-07-29] MEDS: SPIRONOLACTONE 25 MG TAB PO SCH (08:21)
[2017-07-29] MEDS ORDERED: POTASSIUM CHLORIDE 20 MEQ CONTROLLED RELEASE TAB PO ONE (08:30)
[2017-07-29] MEDS ORDERED: MAGNESIUM SULFATE INJ 2 GM in SODIUM CHLORIDE 0.9% INJ 96 ML IV PRN (09:45)
[2017-07-29] MEDS ORDERED: MAGNESIUM SULFATE INJ 2 GM in SODIUM CHLORIDE 0.9% INJ 96 ML IV ONE (10:00)
[2017-07-29] MEDS: oxyCODONE/ACETAMINOPHEN 5 MG/325 MG TAB PO PRN ×2 (10:34→20:51)
[2017-07-29] MEDS ORDERED: SPIRONOLACTONE 50 MG TAB PO ONE (11:00)
--- NOTE | 2017-07-29 11:19 | HHI.CCPN ---
Subjective Remarks/Hospital Course 07/24: 61-year-old male with medical history significant for hypertension, insulin-dependent diabetes mellitus who was in his usual state of health today. While being driven by a family member he suddenly became unresponsive with a seizure. He was taken out of his car and had bystander CPR for 3-5 minutes by senior enlisted advisor who happened to be around. On EMS arrival patient was noted to be in V. fib arrest. He underwent DC shock 3 following which she had return of spontaneous circulation. He was having spontaneous respirations which were agonal and he is brought to the ER by EMS. Patient was comatose with GCS of 3 per documentation and did not appear to be protecting his airway hence was intubated for airway protection and placed on mechanical ventilation in the ER. He did receive it, date and succinylcholine for intubation. He was subsequently initiated on propofol for sedation as he was fighting the ventilator however dropped his blood pressure hence propofol was held. Dr. Rankin from cardiology was contacted regarding V. fib arrest and did not want to proceed with cardiac catheterization at that time. Critical care medicine was contacted to see if patient was a candidate for therapeutic hypothermia. I came to the ER and evaluated the patient immediately on being notified. His labs and head CT were pending at the time of my evaluation. Patient was comatose off propofol not responding to painful stimuli intubated on mechanical ventilation. Per family patient was absolutely asymptomatic prior to becoming unresponsive. History was obtained by reviewing records and discussion with ER physician. 07/25: Patient remains on therapeutic hypothermia protocol. Urine drug screen resulted at 1 AM and was positive for cocaine though family had denied any drug use to ER physician. 07/26: Patient completed therapeutic hypothermia protocol. He was awake and alert on lightening sedation and following commands. Underwent C Pap trials which he tolerated well and was subsequently extubated. He is requiring 15 L O2 currently. Received 1 dose of Solu-Medrol 125 mg IV in view of history of heavy smoking for suspected COPD contributing to respiratory failure. He is otherwise awake and alert, following commands following extubation. Patient's tells me that he had remote history of cocaine use however is not aware of any recent cocaine use. 07/27: Awake and alert. Following commands. Diuresed well with Bumex overnight. O2 requirement 8 L/m this morning. Still has some shortness of breath. Drops O2 sats to 86% on taking off oxygen. Admits to using cocaine on the day of his cardiac arrest when [place] was at the auto show. Tells me he uses cocaine once every 6 months or so. On inquiring about alcohol intake he states that he has a few drinks every few weeks and denies daily alcohol consumption. He smokes half a pack a day. Denies any chest pain currently. 2-D echo showed LVEF 20-25% with global hypokinesis. 07/28: Required increasing O2 and is on 10 L/m nasal cannula. Given additional Lasix last night and is diuresing well. Denies any chest pain. Underwent cardiac catheterization yesterday with three-vessel disease and had proximal LAD stenting with bare metal stent. 07/29: Patient is sitting out of bed in a chair on 4 L nasal cannula. Appears to be comfortable. Complains of chest wall pain with deep breathing. He is being evaluated by CT surgery (Dr. Anne Leong) for revasculariztion for RCA and OM1 as well as Dr. Paz for EP eval. patient tells me that he prefers to go back to [place] where he lives if possible to have further cardiac treatment at [facility] once he is stabilized as he lives in [place]. He is also telling me that he was evaluated by Dr. Jaramillo a food clerk 5 years ago and underwent a stress test and cardiac catheterization then and believes that he did have a stent then(?). He tells me that he has not followed up with Dr. Jaramillo for 5 years now. Objective Vital Signs Date Time Temp Pulse Resp B/P (MAP) Pulse Ox O2 Delivery O2 Flow Rate FiO2 07/29/17 09:05 97 Nasal Cannula 2.00 07/29/17 08:00 78 07/29/17 08:00 16 128/84 (99) 07/29/17 03:00 99.0 07/26/17 07:30 40 Intake and Output 07/29/17 07/29/17 07/30/17 08:00 16:00 00:00 Intake Total 630 ml Output Total 2800 ml Balance -2170 ml Result Diagram: 07/29/17 0533 07/29/17 0533 Other Results Microbiology Date/Time Source Procedure Growth Status 07/27/17 17:15 Nasopharyngeal MRSA Surveillance Culture - Final Positive For Mrsa Complete Imaging Chest x-ray portable which was personally reviewed: ET tube above albert, lung danielle appear clear with no obvious infiltrates. Head CT pending at the time of this dictation Objective Remarks Drips: Amiodarone gtt HEENT/ Neuro: Awake, alert, oriented 3, following commands, moving all 4 extremities, no pallor, tongue/ mucosa moist Neck: No JVD Chest/Pulm: good air entry bilaterally, scattered rhonchi, bibasilar crackles, no wheezing. On O2 2l/min CVS: S1-S2 regular, no murmur GI/abdomen: soft, nontender, bowel sounds sluggish Extremities: Warm bilaterally, no edema A/P Assessment and Plan 61-year-old male with: Out of hospital V. fib arrest status post CPR Acute MN: Possibly related to cocaine use Ischemic cardiomyopathy (EF 35% by cath 07/27) Multivessel CAD (by cath) s/p LAD stenting -bare metal stent on 07/27/[address] Julio Cesar Rankin MD Acute Decompensated systolic CHF Acute respiratory failure Suspected COPD with exacerbation Hypotension (resolved) Insulin-dependent diabetes mellitus Encephalopathy (resolved) Cocaine positive Plan: Neuro: Completed therapeutic hypothermia protocol. Follow neuro checks. Off all sedation. Patient tested positive for cocaine. Cardiovascular: Troponin greater than 40. Cardiology consult with Dr. Rankin. ED physician d/w with Dr. Rankin following V. fib arrest and he was not planning cardiac catheterization until neuro status improved following hypothermia protocol. Off heparin gtt, titrated off Levophed following extubation. BNP elevated and 2 -D echo revealed LVEF 20-25% with global hypokinesis. Chest x-ray done on reveals pulmonary edema, responding with diuresis, continue IV lasix. Added Coreg 6.25 mg every 12 hourly, lisinopril 5 mg by mouth daily and Lipitor 20 mg daily starting 07/27. Continue ASA, plavix per cardiology. On amiodarone gtt. s/p cardiac [id number] which revealed LVEF 30-35%, 3 vessel disease with bare metal stenting to proximal LAD consider switching amiodarone to PO when okay with cardiology. Being evaluated by EP-Dr. Paz for need for ICD/ Vest, CTS-Dr. Anne Leong for CABG Pulmonary: Extubated following C Pap trial. Continue supplemental O2 by nasal cannula, bronchodilators as needed. Tapering Solu-Medrol. Continue diuresis. Follow-up chest x-ray GI/liver: Advance PO diet Renal/: Strict intake output, monitor and replete electrolytes, follow BUN creatinine. Continue diuresis. ID: On Levaquin for empiric antibiotic coverage in view of suspected COPD exacerbation, plan to stop after 5 days of therapy on 07/30/17. Heme: Follow CBC and coags. Off heparin gtt since 07/27 Endocrine: Continue Levemir 5 units subcutaneously every 12 hourly along with sliding scale insulin in view of insulin-dependent diabetes mellitus. Prophylaxis: Pepcid/SCDs. started lovenox 40mg daily 07/29. Updated patient and spoke with his his regarding current clinical status and plan of care and she voiced understanding and was agreeable on 07/29. Patient wishes to go back to [place] for further cardiac management if possible. I told him that cardiology/EP and CT surgery will decide regarding further cardiac care and options with him. Will defer to CT surgery and cardiology regarding cardiac management here versus transfer to [place]. Condition fair. Patient will be transferred out of CVICU to CPCU. Transfer to hospitalist service for further medical management. Critical care will be signing off at this time. Further recommendations per cardiology/CT surgery. Patient is doing well on 2 L nasal cannula currently responding to diuresis. Rip Curtis MD Jul 29, 2017 11:19
--- NOTE | 2017-07-29 11:47 | PD.CARD.PN ---
Subjective Subjective Remarks extubated, alert in nad, denies chest pain or dyspnea Objective Medications Current Medications Medications (Trade) Dose Ordered Sig/Laxmi Route Start Time Stop Time Status Last Admin Amiodarone HCl 450 mg/Dextrose 250 ml @ 33.33 mls/ hr Q7H31M PRN IV 07/24/17 16:22 07/29/17 06:47 (Ativan Inj) 1 mg Q1H PRN IV PUSH 07/24/17 16:30 (Lacrilube Opht Oint) 1 applic Q4H PRN EACH EYE 07/24/17 16:30 Miscellaneous Information 0 ml @ 0 mls/hr UNSCH IV 07/24/17 16:30 Miscellaneous Information 1 Q361D XX 07/24/17 16:30 (Chlorhexidine 2% Cloth) 3 pack Taper DAILY@04 TOP 07/25/17 04:00 07/21/18 03:59 07/29/17 04:00 (Chlorhexidine 2% Cloth) 3 pack UNSCH PRN TOP 07/24/17 16:30 Potassium Chloride 100 ml @ 50 mls/hr Q2H PRN IV 07/24/17 16:30 Potassium Chloride 100 ml @ 50 mls/hr Q2H PRN IV 07/24/17 16:30 07/29/17 07:11 (K-Lyte Cl Eff) 50 meq UNSCH PRN PO 07/24/17 16:30 Potassium Chloride 100 ml @ 25 mls/hr UNSCH PRN IV 07/24/17 16:30 07/26/17 08:50 Potassium Chloride 100 ml @ 50 mls/hr Q2H PRN IV 07/24/17 16:30 07/25/17 00:10 Magnesium Sulfate 4 gm/Sodium Chloride 100 ml @ 50 mls/hr UNSCH PRN IV 07/24/17 16:30 (Mag-Ox) 800 mg UNSCH PRN PO 07/24/17 16:30 Magnesium Sulfate 2 gm/Sodium Chloride 100 ml @ 50 mls/hr UNSCH PRN IV 07/24/17 16:30 07/26/17 02:23 (K-Phos) 2,000 mg Q4H PRN PO 07/24/17 16:30 Sodium Phosphate 30 mmol/Sodium Chloride 250 ml @ 42 mls/hr UNSCH PRN IV 07/24/17 16:30 (K-Phos) 2,000 mg UNSCH PRN PO/TUBE 07/24/17 16:30 Potassium Phosphate 30 mmol/ Sodium Chloride 260 ml @ 42 mls/hr UNSCH PRN IV 07/24/17 16:30 (Levemir Inj) 5 units Q12HR SQ 07/24/17 21:00 07/29/17 08:18 (NovoLOG SUPPLEMENTAL SCALE) 1 Q4HR SQ 07/24/17 20:00 07/29/17 08:17 (D50w (Vial) Inj) 25 ml UNSCH PRN IV 07/24/17 17:30 07/26/17 11:59 (Glucagon Inj) 1 mg UNSCH PRN IM/SQ 07/24/17 17:30 Norepinephrine Bitartrate 4 mg/ Sodium Chloride 250 ml @ 7.5 mls/hr TITRATE PRN IV 07/26/17 06:15 (Duoneb Neb) 1 ampule Q4HR NEB NEB 07/26/17 12:45 07/29/17 09:05 (Duoneb Neb) 1 ampule Q2HR NEB PRN NEB 07/26/17 12:45 Levofloxacin/ Dextrose 150 ml @ 100 mls/hr Q24H IV 07/26/17 14:00 07/30/17 17:00 07/28/17 14:00 (Tylenol) 650 mg Q6H PRN PO 07/26/17 15:30 07/28/17 01:09 (Restoril) 15 mg HS PRN PO 07/27/17 01:00 07/28/17 23:23 (Coreg) 6.25 mg Q12HR PO 07/27/17 07:15 07/29/17 08:21 (Lipitor) 20 mg DAILY PO 07/27/17 09:00 07/29/17 08:21 (Prinivil) 5 mg DAILY PO 07/27/17 09:00 07/29/17 08:20 (Lasix Inj) 40 mg BID@09,18 IV PUSH 07/27/17 18:00 07/29/17 08:20 (NS Flush) 2 ml UNSCH PRN IV FLUSH 07/27/17 14:15 (NS Flush) 2 ml BID IV FLUSH 07/27/17 21:00 07/29/17 08:21 (Aspirin Chew) 162 mg DAILY PO 07/28/17 09:00 07/29/17 08:19 (Plavix) 75 mg DAILY PO 07/28/17 09:00 07/29/17 08:19 (SoluMEDROL INJ) 40 mg DAILY IV PUSH 07/29/17 09:00 07/29/17 08:18 Magnesium Sulfate 2 gm/Sodium Chloride 100 ml @ 50 mls/hr ONCE ONCE IV 07/29/17 10:00 07/29/17 11:59 07/29/17 10:35 (Percocet 5-325 Mg) 1 tab Q4H PRN PO 07/29/17 09:45 07/29/17 10:34 (Aldactone) 50 mg BID@,18 PO 07/29/17 18:00 (Lovenox Inj) 40 mg Q24H SQ 07/29/17 12:00 Vital Signs / I&O Vital Signs Date Time Temp Pulse Resp B/P (MAP) Pulse Ox O2 Delivery O2 Flow Rate FiO2 07/29/17 11:00 62 07/29/17 11:00 97 Nasal Cannula 2.00 07/29/17 11:00 98.5 62 16 120/78 (92) 96 07/29/17 09:05 97 Nasal Cannula 2.00 07/29/17 08:00 78 07/29/17 08:00 97 Nasal Cannula 3.00 07/29/17 08:00 78 16 128/84 (99) 97 07/29/17 06:47 78 126/82 07/29/17 03:00 99.0 86 20 120/74 (89) 93 07/29/17 03:00 95 Nasal Cannula 4.00 07/29/17 03:00 86 07/28/17 23:41 92 Nasal Cannula 3.50 07/28/17 23:00 76 07/28/17 23:00 90 Nasal Cannula 2.00 07/28/17 23:00 98.8 76 18 109/71 (84) 90 07/28/17 19:00 87 07/28/17 19:00 97.9 87 22 111/72 (85) 92 07/28/17 19:00 92 Nasal Cannula 4.00 07/28/17 17:46 95 Nasal Cannula 3.00 07/28/17 15:00 98 Nasal Cannula 6.00 07/28/17 15:00 84 11/30/17 15:00 98.3 84 16 119/74 (89) 98 07/28/17 14:00 86 130/70 07/28/17 14:00 73 130/70 07/28/17 13:51 95 Nasal Cannula 4.00 I/O 07/28/17 07/28/17 07/28/17 07/29/17 07/29/17 07/29/17 07:00 15:00 23:00 07:00 15:00 23:00 Intake Total 1320 ml 100 ml 659 ml 630 ml 79 ml Output Total 3300 ml 1075 ml 2800 ml Balance -1980 ml 100 ml -416 ml -2170 ml 79 ml Intake Oral 720 ml 300 ml 630 ml IV Total 600 ml 100 ml 359 ml 79 ml Output Urine Total 3300 ml 1075 ml 2800 ml # Bowel Movements 0 0 1 Physical Exam GENERAL: SKIN: Warm and dry. HEAD: Normocephalic. EYES: No scleral icterus. No injection or drainage. NECK: Supple, trachea midline. No JVD or lymphadenopathy. CARDIOVASCULAR: Regular rate and rhythm without murmurs, gallops, or rubs. RESPIRATORY: Breath sounds equal bilaterally. No accessory muscle use. GASTROINTESTINAL: Abdomen soft, non-tender, nondistended. MUSCULOSKELETAL: No cyanosis, or edema. BACK: Nontender without obvious deformity. No CVA tenderness. Laboratory Laboratory Tests Test 07/29/17 05:33 White Blood Count 17.7 TH/MM3 Red Blood Count 5.33 MIL/MM3 Hemoglobin 14.3 GM/DL Hematocrit 43.0 % Mean Corpuscular Volume 80.7 FL Mean Corpuscular Hemoglobin 26.7 PG Mean Corpuscular Hemoglobin Concent 33.1 % Red Cell Distribution Width 15.2 % Platelet Count 212 TH/MM3 Mean Platelet Volume 9.0 FL Neutrophils (%) (Auto) 83.4 % Lymphocytes (%) (Auto) 8.0 % Monocytes (%) (Auto) 8.4 % Eosinophils (%) (Auto) 0.0 % Basophils (%) (Auto) 0.2 % Neutrophils # (Auto) 14.7 TH/MM3 Lymphocytes # (Auto) 1.4 TH/MM3 Monocytes # (Auto) 1.5 TH/MM3 Eosinophils # (Auto) 0.0 TH/MM3 Basophils # (Auto) 0.0 TH/MM3 CBC Comment DIFF FINAL Differential Comment Blood Urea Nitrogen 35 MG/DL Creatinine 0.87 MG/DL Random Glucose 172 MG/DL Total Protein 6.5 GM/DL Albumin 2.7 GM/DL Calcium Level 8.3 MG/DL Phosphorus Level 2.6 MG/DL Magnesium Level 1.8 MG/DL Alkaline Phosphatase 80 U/L Aspartate Amino Transf (AST/SGOT) 28 U/L Alanine Aminotransferase (ALT/SGPT) 35 U/L Total Bilirubin 0.9 MG/DL Sodium Level 138 MEQ/L Potassium Level 3.1 MEQ/L Chloride Level 101 MEQ/L Carbon Dioxide Level 28.8 MEQ/L Anion Gap 8 MEQ/L Estimat Glomerular Filtration Rate 90 ML/MIN B-Type Natriuretic Peptide 464 PG/ML Imaging Last 24 hours Impressions Chest X-Ray 07/29/17 0600 Signed Impressions: Service Date/Time: Saturday, July 29, 2017 04:43 - CONCLUSION: Stable chest x-ray with interstitial and airspace opacities which could represent pulmonary edema in the appropriate clinical setting. Hipolito Miguel MD Assessment and Plan Problem List: (1) Cardiac arrest ICD Codes: I46.9 - Cardiac arrest, cause unspecified Status: Acute (2) Seizure disorder ICD Codes: G40.909 - Epilepsy, unspecified, not intractable, without status epilepticus (3) Ventricular fibrillation ICD Codes: I49.01 - Ventricular fibrillation (4) NSTEMI (non-ST elevated myocardial infarction) ICD Codes: I21.4 - Non-ST elevation (NSTEMI) myocardial infarction Assessment and Plan 1.) Cardiac arrest/CAD/Cardiomyopathy - alert in nad, pod#2 pci bms prox mid lad , continue aspirin, plavix, coreg, lisinopril, lipitor, f/u neuro, EP and ct surg recs, incrase aldactone 50 mg bid, f/u bmp, bnp, mag in am; patient requests transfer to [place], d/w patient, his and nurse, Ha, will have case management assist in transfer. Julio Cesar Wade MD Jul 29, 2017 11:47
[2017-07-29] MEDS: ENOXAPARIN SODIUM 40 MG/0.4 ML SYRINGE SQ SCH (12:18)
[2017-07-29 12:59] LABS: BLOOD GAS HCO3 19 mmol/L (22-26); BLOOD GAS PCO2 41 mmHg (38-42); BLOOD GAS PO2 269 mmHg (61-120)
[2017-07-29 13:00] LABS: BLOOD GAS BASE EXCESS -6.9 mmol/L (-2-2); BLOOD GAS CARBOXYHEMOGLOBIN 7.6 % (0-4); BLOOD GAS METHEMOGLOBIN 0.8 % (0-2); BLOOD GAS O2 HGB SATURATION 91 % (90-100); BLOOD GAS OXYGEN CONTENT 18.4 Vol % (12.0-20.0); BLOOD GAS TOTAL HGB 13.9 G/DL (12.0-16.0)
[2017-07-29 13:02] LABS: OXYGEN DEVICE VENTILATOR; TEMP CORR TO 98.6; VENT SETTINGS PRVC14/550/5PEEP
[2017-07-29 13:03] LABS: CRITICAL VALUE YES; DRAW SITE ART LINE; FIO2 100 %; STAT YES
[2017-07-29] MEDS: LEVOFLOXACIN 750 MG PREMIX INJ 150 ML IV SCH (14:33)
--- NOTE | 2017-07-29 18:31 | HHI.PR ---
Subjective Remarks Feeling better Objective Vital Signs Date Time Temp Pulse Resp B/P (MAP) Pulse Ox O2 Delivery O2 Flow Rate FiO2 07/29/17 18:02 79 07/29/17 17:15 97.6 66 17 126/74 (91) 98 07/29/17 17:15 98 Room Air 07/29/17 17:00 78 07/29/17 16:17 95 21 07/29/17 16:00 98.4 66 16 111/78 (89) 91 07/29/17 16:00 90 Room Air 07/29/17 16:00 66 07/29/17 11:00 62 07/29/17 11:00 97 Nasal Cannula 2.00 07/29/17 11:00 98.5 62 16 120/78 (92) 96 07/29/17 09:05 97 Nasal Cannula 2.00 07/29/17 08:00 78 07/29/17 08:00 97 Nasal Cannula 3.00 07/29/17 08:00 78 16 128/84 (99) 97 07/29/17 06:47 78 126/82 07/29/17 03:00 99.0 86 20 120/74 (89) 93 07/29/17 03:00 95 Nasal Cannula 4.00 07/29/17 03:00 86 07/28/17 23:41 92 Nasal Cannula 3.50 07/28/17 23:00 76 07/28/17 23:00 90 Nasal Cannula 2.00 07/28/17 23:00 98.8 76 18 109/71 (84) 90 07/28/17 19:00 87 07/28/17 19:00 97.9 87 22 111/72 (85) 92 07/28/17 19:00 92 Nasal Cannula 4.00 I/O 07/28/17 07/28/17 07/28/17 07/29/17 07/29/17 07/29/17 07:00 15:00 23:00 07:00 15:00 23:00 Intake Total 1320 ml 100 ml 659 ml 630 ml 149 ml 1160 ml Output Total 3300 ml 1075 ml 2800 ml 1500 ml Balance -1980 ml 100 ml -416 ml -2170 ml 149 ml -340 ml Intake Oral 720 ml 300 ml 630 ml 1000 ml IV Total 600 ml 100 ml 359 ml 149 ml 160 ml Output Urine Total 3300 ml 1075 ml 2800 ml 1500 ml # Bowel Movements 0 0 1 Result Diagram: 07/29/17 0533 07/29/17 0533 Imaging Alert, fully oriented Lungs: ventilated Heart: s1, S2 regular, no gallop Abdomen; soft, no mass Ext: no edema Last Impressions Chest X-Ray 07/29/17 0600 Signed Impressions: Service Date/Time: Saturday, July 29, 2017 04:43 - CONCLUSION: Stable chest x-ray with interstitial and airspace opacities which could represent pulmonary edema in the appropriate clinical setting. Hipolito Miguel MD Head CT 07/24/17 1542 Signed Impressions: Service Date/Time: Monday, July 24, 2017 17:17 - CONCLUSION: 1. No acute intracranial abnormalities. Bilateral maxillary and ethmoid sinusitis. 2. Remote lacunar infarct right caudate nucleus. Weston Farrar MD Current Medications Medications (Trade) Dose Ordered Sig/Laxmi Route Start Time Stop Time Status Last Admin (Ativan Inj) 1 mg Q1H PRN IV PUSH 07/24/17 16:30 (Lacrilube Opht Oint) 1 applic Q4H PRN EACH EYE 07/24/17 16:30 Miscellaneous Information 0 ml @ 0 mls/hr UNSCH IV 07/24/17 16:30 Miscellaneous Information 1 Q361D XX 07/24/17 16:30 (Chlorhexidine 2% Cloth) 3 pack Taper DAILY@04 TOP 07/25/17 04:00 07/21/18 03:59 07/29/17 04:00 (Chlorhexidine 2% Cloth) 3 pack UNSCH PRN TOP 07/24/17 16:30 Potassium Chloride 100 ml @ 50 mls/hr Q2H PRN IV 07/24/17 16:30 Potassium Chloride 100 ml @ 50 mls/hr Q2H PRN IV 07/24/17 16:30 07/29/17 07:11 (K-Lyte Cl Eff) 50 meq UNSCH PRN PO 07/24/17 16:30 Potassium Chloride 100 ml @ 25 mls/hr UNSCH PRN IV 07/24/17 16:30 07/26/17 08:50 Potassium Chloride 100 ml @ 50 mls/hr Q2H PRN IV 07/24/17 16:30 07/25/17 00:10 Magnesium Sulfate 4 gm/Sodium Chloride 100 ml @ 50 mls/hr UNSCH PRN IV 07/24/17 16:30 (Mag-Ox) 800 mg UNSCH PRN PO 07/24/17 16:30 Magnesium Sulfate 2 gm/Sodium Chloride 100 ml @ 50 mls/hr UNSCH PRN IV 07/24/17 16:30 07/26/17 02:23 (K-Phos) 2,000 mg Q4H PRN PO 07/24/17 16:30 Sodium Phosphate 30 mmol/Sodium Chloride 250 ml @ 42 mls/hr UNSCH PRN IV 07/24/17 16:30 (K-Phos) 2,000 mg UNSCH PRN PO/TUBE 07/24/17 16:30 Potassium Phosphate 30 mmol/ Sodium Chloride 260 ml @ 42 mls/hr UNSCH PRN IV 07/24/17 16:30 (Levemir Inj) 5 units Q12HR SQ 07/24/17 21:00 07/29/17 08:18 (NovoLOG SUPPLEMENTAL SCALE) 1 Q4HR SQ 07/24/17 20:00 07/29/17 16:36 (D50w (Vial) Inj) 25 ml UNSCH PRN IV 07/24/17 17:30 07/26/17 11:59 (Glucagon Inj) 1 mg UNSCH PRN IM/SQ 07/24/17 17:30 Norepinephrine Bitartrate 4 mg/ Sodium Chloride 250 ml @ 7.5 mls/hr TITRATE PRN IV 07/26/17 06:15 (Duoneb Neb) 1 ampule Q4HR NEB NEB 07/26/17 12:45 07/29/17 16:17 (Duoneb Neb) 1 ampule Q2HR NEB PRN NEB 07/26/17 12:45 Levofloxacin/ Dextrose 150 ml @ 100 mls/hr Q24H IV 07/26/17 14:00 07/30/17 17:00 07/29/17 14:33 (Tylenol) 650 mg Q6H PRN PO 07/26/17 15:30 07/28/17 01:09 (Restoril) 15 mg HS PRN PO 07/27/17 01:00 07/28/17 23:23 (Coreg) 6.25 mg Q12HR PO 07/27/17 07:15 07/29/17 08:21 (Lipitor) 20 mg DAILY PO 07/27/17 09:00 07/29/17 08:21 (Prinivil) 5 mg DAILY PO 07/27/17 09:00 07/29/17 08:20 (Lasix Inj) 40 mg BID@,18 IV PUSH 07/27/17 18:00 07/29/17 17:33 (NS Flush) 2 ml UNSCH PRN IV FLUSH 07/27/17 14:15 (NS Flush) 2 ml BID IV FLUSH 07/27/17 21:00 07/29/17 08:21 (Aspirin Chew) 162 mg DAILY PO 07/28/17 09:00 07/29/17 08:19 (Plavix) 75 mg DAILY PO 07/28/17 09:00 07/29/17 08:19 (SoluMEDROL INJ) 40 mg DAILY IV PUSH 07/29/17 09:00 07/30/17 10:00 07/29/17 08:18 (Percocet 5-325 Mg) 1 tab Q4H PRN PO 07/29/17 09:45 07/29/17 10:34 (Aldactone) 50 mg BID@18 PO 07/29/17 18:00 (Lovenox Inj) 40 mg Q24H SQ 07/29/17 12:00 07/29/17 12:18 (K-Lyte Cl Eff) 25 meq Q12HR PO 07/29/17 21:00 Assessment and Plan Problem List: (1) Ventricular fibrillation ICD Codes: I49.01 - Ventricular fibrillation Plan: No new episodes reported SP PTCA plus stent not fully revascularized. Patient didn't recall the episode. Very anxious. I did explain to him what happened He decided to stay in the hospital and have everything done here. Will keep on NPO after midnight Tuesday EPS and possible ICD Tuesday morning (2) NSTEMI (non-ST elevated myocardial infarction) ICD Codes: I21.4 - Non-ST elevation (NSTEMI) myocardial infarction aIn Paz MD Jul 29, 2017 18:31
[2017-07-29] MEDS: SPIRONOLACTONE 50 MG TAB PO SCH (20:51)
[2017-07-29] MEDS: TEMAZEPAM 15 MG CAP PO PRN (20:52)
[2017-07-29] MEDS: POTASSIUM CHLORIDE 25 MEQ EFFERVESCENT TAB PO SCH (21:00)
[2017-07-29] MEDS: ACETAMINOPHEN 325 MG TAB PO PRN (23:39)
[2017-07-30] VITALS (31 sets, daily range): BP systolic 92–139; BP diastolic 52–86; PULSE 57–84; RESP 16–18; TEMP 98–98.4; O2SAT 93–97
[2017-07-30] MEDS: RESP: ALBUTEROL 2.5 MG/IPRATROPIUM 0.5 MG NEB (SCH) NEB ×3 (00:01→07:59)
[2017-07-30] MEDS: CHLORHEXIDINE GLUCONATE 2 % 1 PACK (2 CLOTHS) TOP SCH (03:47)
[2017-07-30] MEDS: oxyCODONE/ACETAMINOPHEN 5 MG/325 MG TAB PO PRN ×2 (03:56→21:21)
[2017-07-30] MEDS: INSULIN ASPART SUPPLEMENTAL SCALE SQ SCH ×5 (03:56→22:09)
[2017-07-30 05:14] LABS: BICARBONATE 30.1 MEQ/L (21.0-32.0); MAGNESIUM 1.8 MG/DL (1.5-2.5); POTASSIUM 3.7 MEQ/L (3.5-5.1)
[2017-07-30] MEDS: CARVEDILOL 6.25 MG TAB PO SCH ×2 (08:58→21:21)
[2017-07-30] MEDS: SPIRONOLACTONE 50 MG TAB PO SCH ×2 (08:58→17:29)
[2017-07-30] MEDS: CLOPIDOGREL 75 MG TAB PO SCH (08:58)
[2017-07-30] MEDS: ATORVASTATIN 20 MG TAB PO SCH (08:58)
[2017-07-30] MEDS: ASPIRIN 81 MG CHEW TAB PO SCH (08:58)
[2017-07-30] MEDS: LISINOPRIL 5 MG TAB PO SCH (08:59)
[2017-07-30] MEDS: POTASSIUM CHLORIDE 25 MEQ EFFERVESCENT TAB PO SCH ×2 (08:59→21:22)
[2017-07-30] MEDS: methylPREDNISolone SOD SUCC 40 MG/1 ML VIAL IV PUSH SCH (08:59)
[2017-07-30] MEDS: FUROSEMIDE 40 MG/4 ML VIAL IV PUSH SCH ×2 (09:00→17:29)
[2017-07-30] MEDS: INSULIN DETEMIR 100 UNITS/ML VIAL SQ SCH ×2 (09:00→22:09)
[2017-07-30] MEDS: SODIUM CHLORIDE 0.9% FLUSH 10 ML FLUSH IV FLUSH SCH ×2 (09:00→21:22)
[2017-07-30] MEDS ORDERED: MAGNESIUM OXIDE 400 MG TAB PO ONE (10:45)
[2017-07-30] MEDS: ENOXAPARIN SODIUM 40 MG/0.4 ML SYRINGE SQ SCH (11:04)
--- NOTE | 2017-07-30 14:33 | HHI.PR ---
Subjective Remarks Patient is on room air, denies chest pressure or shortness of breath. He does have some sharp chest pain when he coughs related to the CPR. Patient has agreed to stay here for EPS on Tuesday. Objective Vitals Vital Signs Date Time Temp Pulse Resp B/P (MAP) Pulse Ox O2 Delivery O2 Flow Rate FiO2 07/30/17 13:01 72 07/30/17 12:00 70 07/30/17 11:01 98.4 61 18 92/52 (65) 93 07/30/17 11:01 93 Room Air 07/30/17 11:00 72 07/30/17 10:00 82 07/30/17 09:00 76 07/30/17 08:45 96 Room Air 07/30/17 08:45 98.4 67 18 139/86 (103) 96 07/30/17 08:00 74 07/30/17 07:59 97 Nasal Cannula 1.00 07/30/17 07:01 65 07/30/17 06:00 75 07/30/17 05:00 69 07/30/17 04:00 84 07/30/17 03:00 69 07/30/17 03:00 97 Nasal Cannula 2.00 07/30/17 03:00 98.2 72 18 113/67 (82) 97 07/30/17 02:00 64 07/30/17 01:00 62 07/30/17 00:04 95 Nasal Cannula 1.00 07/30/17 00:00 62 07/29/17 23:00 64 07/29/17 23:00 97 Nasal Cannula 2.00 07/29/17 23:00 98.2 80 18 96/60 (72) 94 07/29/17 22:00 70 07/29/17 21:00 80 07/29/17 20:00 80 07/29/17 20:00 97 Nasal Cannula 2.00 07/29/17 20:00 98.8 81 18 121/79 (93) 95 07/29/17 18:02 79 07/29/17 17:15 97.6 66 17 126/74 (91) 98 07/29/17 17:15 98 Room Air 07/29/17 17:00 78 07/29/17 16:17 95 21 07/29/17 16:00 98.4 66 16 111/78 (89) 91 07/29/17 16:00 90 Room Air 07/29/17 16:00 66 I/O 07/29/17 07/29/17 07/29/17 07/30/17 07/30/17 07/30/17 06:59 14:59 22:59 06:59 14:59 22:59 Intake Total 630 ml 149 ml 1160 ml 400 ml Output Total 2800 ml 2050 ml 775 ml Balance -2170 ml 149 ml -890 ml -375 ml Intake Oral 630 ml 1000 ml 400 ml IV Total 149 ml 160 ml Output Urine Total 2800 ml 2050 ml 775 ml # Bowel Movements 1 0 Result Diagram: 07/29/17 0533 07/30/17 0413 Objective Remarks GENERAL: Well-nourished, well-developed lean male patient. SKIN: Warm and dry. HEAD: Normocephalic. EYES: No scleral icterus. No injection or drainage. NECK: Supple, trachea midline. No JVD or lymphadenopathy. CARDIOVASCULAR: Regular rate and rhythm without murmurs, gallops, or rubs. RESPIRATORY: Breath sounds equal bilaterally. No accessory muscle use. GASTROINTESTINAL: Abdomen soft, non-tender, nondistended. EXTREMITIES: No cyanosis, or edema. NEUROLOGICAL: Awake, alert, and oriented x 3. Non-focal. A/P Problem List: (1) Acute respiratory failure ICD Code: J96.00 - Acute respiratory failure, unspecified whether with hypoxia or hypercapnia (2) Metabolic encephalopathy ICD Code: G93.41 - Metabolic encephalopathy (3) Ventricular fibrillation ICD Code: I49.01 - Ventricular fibrillation (4) Cardiac arrest ICD Code: I46.9 - Cardiac arrest, cause unspecified Status: Acute (5) NSTEMI (non-ST elevated myocardial infarction) ICD Code: I21.4 - Non-ST elevation (NSTEMI) myocardial infarction (6) Type 2 diabetes mellitus ICD Code: E11.9 - Type 2 diabetes mellitus without complications (7) Cocaine use ICD Code: F14.90 - Cocaine use, unspecified, uncomplicated (8) Ischemic cardiomyopathy ICD Code: I25.5 - Ischemic cardiomyopathy (9) Acute systolic CHF (congestive heart failure) ICD Code: I50.21 - Acute systolic (congestive) heart failure Assessment and Plan 61-year-old male with: 1. Out of hospital V. fib arrest status post CPR - s/p hypothermia protocol, neurologically intact. for EPS on Tuesday with Dr. Paz, possible AICD. s/p amiodarone drip. cont tele. cont coreg. 2. Acute [place] , Ischemic cardiomyopathy (EF 35% by cath 07/27), Multivessel CAD ( by cath) s/p LAD stenting -bare metal stent on 07/27/[address] Rankin. cont asa, coreg, lipitor, plavix, spironolactone. s/p eval by CT surgery. S/p respiratory failure with intubation - resolved, extubated 07/25. 3. Acute decompensated systolic CHF - improved. stable on RA, no peripheral edema, on lasix 40 mg IV BID, cxr 07/29 with pulmonary edema. cont meds as above. Suspected COPD with exacerbation - improved, taper steroids, s/op levaquin 5 days today. 4. Insulin-dependent diabetes mellitus - cont levemir 5 units sq bid, ssi. 5. Hypotension (resolved) 6. Encephalopathy (resolved) 7. Cocaine positive 8. Tobacco use - counseled on cessation. 9. DVT px - lovenox 40 mg sq daily. Sachi Villalobos MD Jul 30, 2017 14:33
[2017-07-30] MEDS: LEVOFLOXACIN 750 MG PREMIX INJ 150 ML IV SCH (14:56)
--- NOTE | 2017-07-30 17:19 | PD.CARD.PN ---
Subjective Subjective Remarks GENERAL: SKIN: Warm and dry. HEAD: Normocephalic. EYES: No scleral icterus. No injection or drainage. NECK: Supple, trachea midline. No JVD or lymphadenopathy. CARDIOVASCULAR: Regular rate and rhythm without murmurs, gallops, or rubs. RESPIRATORY: Breath sounds equal bilaterally. No accessory muscle use. GASTROINTESTINAL: Abdomen soft, non-tender, nondistended. MUSCULOSKELETAL: No cyanosis, or edema. BACK: Nontender without obvious deformity. No CVA tenderness. extubated, alert in nad, denies chest pain or dyspnea Objective Medications Current Medications Medications (Trade) Dose Ordered Sig/Laxmi Route Start Time Stop Time Status Last Admin (Ativan Inj) 1 mg Q1H PRN IV PUSH 07/24/17 16:30 (Lacrilube Opht Oint) 1 applic Q4H PRN EACH EYE 07/24/17 16:30 Miscellaneous Information 0 ml @ 0 mls/hr UNSCH IV 07/24/17 16:30 Miscellaneous Information 1 Q361D XX 07/24/17 16:30 (Chlorhexidine 2% Cloth) Taper DAILY@04 TOP 07/25/17 04:00 07/21/18 03:59 07/29/17 04:00 (Chlorhexidine 2% Cloth) 3 pack UNSCH PRN TOP 07/24/17 16:30 Potassium Chloride 100 ml @ 50 mls/hr Q2H PRN IV 07/24/17 16:30 Potassium Chloride 100 ml @ 50 mls/hr Q2H PRN IV 07/24/17 16:30 07/29/17 07:11 (K-Lyte Cl Eff) 50 meq UNSCH PRN PO 07/24/17 16:30 Potassium Chloride 100 ml @ 25 mls/hr UNSCH PRN IV 07/24/17 16:30 07/26/17 08:50 Potassium Chloride 100 ml @ 50 mls/hr Q2H PRN IV 07/24/17 16:30 07/25/17 00:10 Magnesium Sulfate 4 gm/Sodium Chloride 100 ml @ 50 mls/hr UNSCH PRN IV 07/24/17 16:30 (Mag-Ox) 800 mg UNSCH PRN PO 07/24/17 16:30 Magnesium Sulfate 2 gm/Sodium Chloride 100 ml @ 50 mls/hr UNSCH PRN IV 07/24/17 16:30 07/26/17 02:23 (K-Phos) 2,000 mg Q4H PRN PO 07/24/17 16:30 Sodium Phosphate 30 mmol/Sodium Chloride 250 ml @ 42 mls/hr UNSCH PRN IV 07/24/17 16:30 (K-Phos) 2,000 mg UNSCH PRN PO/TUBE 07/24/17 16:30 Potassium Phosphate 30 mmol/ Sodium Chloride 260 ml @ 42 mls/hr UNSCH PRN IV 07/24/17 16:30 (Levemir Inj) 5 units Q12HR SQ 07/24/17 21:00 07/30/17 09:00 (NovoLOG SUPPLEMENTAL SCALE) 1 Q4HR SQ 07/24/17 20:00 07/30/17 16:00 (D50w (Vial) Inj) 25 ml UNSCH PRN IV 07/24/17 17:30 07/26/17 11:59 (Glucagon Inj) 1 mg UNSCH PRN IM/SQ 07/24/17 17:30 Norepinephrine Bitartrate 4 mg/ Sodium Chloride 250 ml @ 7.5 mls/hr TITRATE PRN IV 07/26/17 06:15 (Duoneb Neb) 1 ampule Q2HR NEB PRN NEB 07/26/17 12:45 (Tylenol) 650 mg Q6H PRN PO 07/26/17 15:30 07/29/17 23:39 (Restoril) 15 mg HS PRN PO 07/27/17 01:00 07/29/17 20:52 (Coreg) 6.25 mg Q12HR PO 07/27/17 07:15 07/30/17 08:58 (Lipitor) 20 mg DAILY PO 07/27/17 09:00 07/30/17 08:58 (Prinivil) 5 mg DAILY PO 07/27/17 09:00 07/30/17 08:59 (Lasix Inj) 40 mg BID@,18 IV PUSH 07/27/17 18:00 07/30/17 09:00 (NS Flush) 2 ml UNSCH PRN IV FLUSH 07/27/17 14:15 (NS Flush) 2 ml BID IV FLUSH 07/27/17 21:00 07/30/17 09:00 (Aspirin Chew) 162 mg DAILY PO 07/28/17 09:00 07/30/17 08:58 (Plavix) 75 mg DAILY PO 07/28/17 09:00 07/30/17 08:58 (Percocet 5-325 Mg) 1 tab Q4H PRN PO 07/29/17 09:45 07/30/17 03:56 (Aldactone) 50 mg BID@09,18 PO 07/29/17 18:00 07/30/17 08:58 (Lovenox Inj) 40 mg Q24H SQ 07/29/17 12:00 07/30/17 11:04 (K-Lyte Cl Eff) 25 meq Q12HR PO 07/29/17 21:00 07/30/17 08:59 (Mag-Ox) 400 mg Q12HR PO 07/30/17 21:00 Vital Signs / I&O Vital Signs Date Time Temp Pulse Resp B/P (MAP) Pulse Ox O2 Delivery O2 Flow Rate FiO2 07/30/17 16:01 62 07/30/17 15:01 96 Room Air 07/30/17 15:01 98.1 63 18 119/69 (86) 96 07/30/17 15:00 63 07/30/17 14:00 78 07/30/17 13:01 72 07/30/17 12:00 70 07/30/17 11:01 98.4 61 18 92/52 (65) 93 07/30/17 11:01 93 Room Air 07/30/17 11:00 72 07/30/17 10:00 82 07/30/17 09:00 76 07/30/17 08:45 96 Room Air 07/30/17 08:45 98.4 67 18 139/86 (103) 96 07/30/17 08:00 74 07/30/17 07:59 97 Nasal Cannula 1.00 07/30/17 07:01 65 07/30/17 06:00 75 07/30/17 05:00 69 07/30/17 04:00 84 07/30/17 03:00 69 07/30/17 03:00 97 Nasal Cannula 2.00 07/30/17 03:00 98.2 72 18 113/67 (82) 97 07/30/17 02:00 64 07/30/17 01:00 62 07/30/17 00:04 95 Nasal Cannula 1.00 07/30/17 00:00 62 07/29/17 23:00 64 07/29/17 23:00 97 Nasal Cannula 2.00 07/29/17 23:00 98.2 80 18 96/60 (72) 94 07/29/17 22:00 70 07/29/17 21:00 80 07/29/17 20:00 80 07/29/17 20:00 97 Nasal Cannula 2.00 07/29/17 20:00 98.8 81 18 121/79 (93) 95 07/29/17 18:02 79 I/O 07/29/17 07/29/17 07/29/17 07/30/17 07/30/17 07/30/17 07:00 15:00 23:00 07:00 15:00 23:00 Intake Total 630 ml 149 ml 1160 ml 400 ml Output Total 2800 ml 2050 ml 775 ml Balance -2170 ml 149 ml -890 ml -375 ml Intake Oral 630 ml 1000 ml 400 ml IV Total 149 ml 160 ml Output Urine Total 2800 ml 2050 ml 775 ml # Bowel Movements 1 0 Physical Exam GENERAL: SKIN: Warm and dry. HEAD: Normocephalic. EYES: No scleral icterus. No injection or drainage. NECK: Supple, trachea midline. No JVD or lymphadenopathy. CARDIOVASCULAR: Regular rate and rhythm without murmurs, gallops, or rubs. RESPIRATORY: Breath sounds equal bilaterally. No accessory muscle use. GASTROINTESTINAL: Abdomen soft, non-tender, nondistended. MUSCULOSKELETAL: No cyanosis, or edema. BACK: Nontender without obvious deformity. No CVA tenderness. Laboratory Laboratory Tests Test 07/30/17 04:13 Blood Urea Nitrogen 42 MG/DL Creatinine 1.04 MG/DL Random Glucose 289 MG/DL Calcium Level 8.4 MG/DL Phosphorus Level 3.1 MG/DL Magnesium Level 1.8 MG/DL Sodium Level 136 MEQ/L Potassium Level 3.7 MEQ/L Chloride Level 99 MEQ/L Carbon Dioxide Level 30.1 MEQ/L Anion Gap 7 MEQ/L Estimat Glomerular Filtration Rate 73 ML/MIN B-Type Natriuretic Peptide 461 PG/ML Assessment and Plan Problem List: (1) Cardiac arrest ICD Codes: I46.9 - Cardiac arrest, cause unspecified Status: Acute (2) Seizure disorder ICD Codes: G40.909 - Epilepsy, unspecified, not intractable, without status epilepticus (3) Ventricular fibrillation ICD Codes: I49.01 - Ventricular fibrillation (4) NSTEMI (non-ST elevated myocardial infarction) ICD Codes: I21.4 - Non-ST elevation (NSTEMI) myocardial infarction Assessment and Plan 1.) Cardiac arrest/CAD/Cardiomyopathy - alert in nad, pod#3 pci bms prox mid lad , continue aspirin, plavix, coreg, lisinopril, lipitor, f/u neuro, EP and ct surg recs, increase aldactone 50 mg bid, f/u bmp, bnp, mag in am; d/w Dr Paz , plan consider pci rca tuesday if bnp still elevated 08/01/17; EP studay to be done Julio Cesar Camp MD Jul 30, 2017 17:19
[2017-07-30] MEDS: MAGNESIUM OXIDE 400 MG TAB PO SCH (21:22)
[2017-07-31] VITALS (20 sets, daily range): BP systolic 83–110; BP diastolic 48–70; PULSE 57–80; RESP 14–18; TEMP 97.9–98.4; O2SAT 93–96
[2017-07-31] MEDS: INSULIN ASPART SUPPLEMENTAL SCALE SQ SCH ×6 (04:00→22:15)
[2017-07-31] MEDS: CHLORHEXIDINE GLUCONATE 2 % 1 PACK (2 CLOTHS) TOP SCH (04:00)
[2017-07-31 08:06] LABS: BICARBONATE 29.8 MEQ/L (21.0-32.0); MAGNESIUM 1.8 MG/DL (1.5-2.5); POTASSIUM 3.6 MEQ/L (3.5-5.1)
[2017-07-31] MEDS: POTASSIUM CHLORIDE 25 MEQ EFFERVESCENT TAB PO SCH ×2 (09:00→21:00)
[2017-07-31] MEDS: INSULIN DETEMIR 100 UNITS/ML VIAL SQ SCH ×2 (10:27→21:00)
[2017-07-31] MEDS: ATORVASTATIN 20 MG TAB PO SCH (10:28)
[2017-07-31] MEDS: CARVEDILOL 6.25 MG TAB PO SCH ×2 (10:28→21:00)
[2017-07-31] MEDS: FUROSEMIDE 40 MG/4 ML VIAL IV PUSH SCH ×2 (10:29→17:43)
[2017-07-31] MEDS: LISINOPRIL 5 MG TAB PO SCH (10:29)
[2017-07-31] MEDS: ASPIRIN 81 MG CHEW TAB PO SCH (10:29)
[2017-07-31] MEDS: SODIUM CHLORIDE 0.9% FLUSH 10 ML FLUSH IV FLUSH SCH ×2 (10:29→21:53)
[2017-07-31] MEDS: CLOPIDOGREL 75 MG TAB PO SCH (10:30)
[2017-07-31] MEDS: SPIRONOLACTONE 50 MG TAB PO SCH ×2 (10:30→17:43)
[2017-07-31] MEDS: MAGNESIUM OXIDE 400 MG TAB PO SCH ×2 (10:30→21:53)
[2017-07-31] MEDS: oxyCODONE/ACETAMINOPHEN 5 MG/325 MG TAB PO PRN ×2 (10:31→21:53)
--- NOTE | 2017-07-31 10:33 | PD.CARD.PN ---
Subjective Subjective Remarks GENERAL: SKIN: Warm and dry. HEAD: Normocephalic. EYES: No scleral icterus. No injection or drainage. NECK: Supple, trachea midline. No JVD or lymphadenopathy. CARDIOVASCULAR: Regular rate and rhythm without murmurs, gallops, or rubs. RESPIRATORY: Breath sounds equal bilaterally. No accessory muscle use. GASTROINTESTINAL: Abdomen soft, non-tender, nondistended. MUSCULOSKELETAL: No cyanosis, or edema. BACK: Nontender without obvious deformity. No CVA tenderness. extubated, alert in nad, denies chest pain or dyspnea Objective Medications Current Medications Medications (Trade) Dose Ordered Sig/Laxmi Route Start Time Stop Time Status Last Admin (Ativan Inj) 1 mg Q1H PRN IV PUSH 07/24/17 16:30 (Lacrilube Opht Oint) 1 applic Q4H PRN EACH EYE 07/24/17 16:30 Miscellaneous Information 0 ml @ 0 mls/hr UNSCH IV 07/24/17 16:30 Miscellaneous Information 1 Q361D XX 07/24/17 16:30 (Chlorhexidine 2% Cloth) Taper DAILY@04 TOP 07/25/17 04:00 07/21/18 03:59 07/29/17 04:00 (Chlorhexidine 2% Cloth) 3 pack UNSCH PRN TOP 07/24/17 16:30 Potassium Chloride 100 ml @ 50 mls/hr Q2H PRN IV 07/24/17 16:30 Potassium Chloride 100 ml @ 50 mls/hr Q2H PRN IV 07/24/17 16:30 07/29/17 07:11 (K-Lyte Cl Eff) 50 meq UNSCH PRN PO 07/24/17 16:30 Potassium Chloride 100 ml @ 25 mls/hr UNSCH PRN IV 07/24/17 16:30 07/26/17 08:50 Potassium Chloride 100 ml @ 50 mls/hr Q2H PRN IV 07/24/17 16:30 07/25/17 00:10 Magnesium Sulfate 4 gm/Sodium Chloride 100 ml @ 50 mls/hr UNSCH PRN IV 07/24/17 16:30 (Mag-Ox) 800 mg UNSCH PRN PO 07/24/17 16:30 Magnesium Sulfate 2 gm/Sodium Chloride 100 ml @ 50 mls/hr UNSCH PRN IV 07/24/17 16:30 07/26/17 02:23 (K-Phos) 2,000 mg Q4H PRN PO 07/24/17 16:30 Sodium Phosphate 30 mmol/Sodium Chloride 250 ml @ 42 mls/hr UNSCH PRN IV 07/24/17 16:30 (K-Phos) 2,000 mg UNSCH PRN PO/TUBE 07/24/17 16:30 Potassium Phosphate 30 mmol/ Sodium Chloride 260 ml @ 42 mls/hr UNSCH PRN IV 07/24/17 16:30 (Levemir Inj) 5 units Q12HR SQ 07/24/17 21:00 07/30/17 22:09 (NovoLOG SUPPLEMENTAL SCALE) 1 Q4HR SQ 07/24/17 20:00 07/31/17 00:00 (D50w (Vial) Inj) 25 ml UNSCH PRN IV 07/24/17 17:30 07/26/17 11:59 (Glucagon Inj) 1 mg UNSCH PRN IM/SQ 07/24/17 17:30 Norepinephrine Bitartrate 4 mg/ Sodium Chloride 250 ml @ 7.5 mls/hr TITRATE PRN IV 07/26/17 06:15 (Duoneb Neb) 1 ampule Q2HR NEB PRN NEB 07/26/17 12:45 (Tylenol) 650 mg Q6H PRN PO 07/26/17 15:30 07/29/17 23:39 (Restoril) 15 mg HS PRN PO 07/27/17 01:00 07/29/17 20:52 (Coreg) 6.25 mg Q12HR PO 07/27/17 07:15 07/30/17 21:21 (Lipitor) 20 mg DAILY PO 07/27/17 09:00 07/30/17 08:58 (Prinivil) 5 mg DAILY PO 07/27/17 09:00 07/30/17 08:59 (Lasix Inj) 40 mg BID@,18 IV PUSH 07/27/17 18:00 07/30/17 17:29 (NS Flush) 2 ml UNSCH PRN IV FLUSH 07/27/17 14:15 (NS Flush) 2 ml BID IV FLUSH 07/27/17 21:00 07/30/17 21:22 (Aspirin Chew) 162 mg DAILY PO 07/28/17 09:00 07/30/17 08:58 (Plavix) 75 mg DAILY PO 07/28/17 09:00 07/30/17 08:58 (Percocet 5-325 Mg) 1 tab Q4H PRN PO 07/29/17 09:45 07/30/17 21:21 (Aldactone) 50 mg BID@09,18 PO 07/29/17 18:00 07/30/17 17:29 (Lovenox Inj) 40 mg Q24H SQ 07/29/17 12:00 07/30/17 11:04 (K-Lyte Cl Eff) 25 meq Q12HR PO 07/29/17 21:00 07/30/17 21:22 (Mag-Ox) 400 mg Q12HR PO 07/30/17 21:00 07/30/17 21:22 Vital Signs / I&O Vital Signs Date Time Temp Pulse Resp B/P (MAP) Pulse Ox O2 Delivery O2 Flow Rate FiO2 07/31/17 08:00 98.3 64 16 110/70 (83) 94 07/31/17 06:05 73 07/31/17 05:50 68 07/31/17 04:30 76 07/31/17 03:40 60 07/31/17 03:40 95 Room Air 07/31/17 03:40 98.4 65 16 100/58 (72) 95 07/31/17 02:02 70 07/31/17 01:10 57 07/31/17 00:31 60 07/30/17 23:40 98.0 57 17 106/60 (75) 97 07/30/17 23:40 97 Room Air 07/30/17 23:39 59 07/30/17 22:00 76 07/30/17 21:12 21 07/30/17 21:00 76 07/30/17 20:20 76 07/30/17 19:40 65 07/30/17 19:30 98.2 79 16 128/86 (100) 96 07/30/17 19:30 96 Room Air 07/30/17 18:01 82 07/30/17 17:00 64 07/30/17 16:01 62 07/30/17 15:01 96 Room Air 07/30/17 15:01 98.1 63 18 119/69 (86) 96 07/30/17 15:00 63 07/30/17 14:00 78 07/30/17 13:01 72 07/30/17 12:00 70 07/30/17 11:01 98.4 61 18 92/52 (65) 93 07/30/17 11:01 93 Room Air 07/30/17 11:00 72 I/O 07/30/17 07/30/17 07/30/17 07/31/17 07/31/17 07/31/17 07:00 15:00 23:00 07:00 15:00 23:00 Intake Total 400 ml 1110 ml 480 ml Output Total 775 ml 650 ml 1250 ml Balance -375 ml 460 ml -770 ml Intake Oral 400 ml 960 ml 480 ml IV Total 150 ml Output Urine Total 775 ml 650 ml 1250 ml # Voids 5 # Bowel Movements 0 0 0 Physical Exam GENERAL: SKIN: Warm and dry. HEAD: Normocephalic. EYES: No scleral icterus. No injection or drainage. NECK: Supple, trachea midline. No JVD or lymphadenopathy. CARDIOVASCULAR: Regular rate and rhythm without murmurs, gallops, or rubs. RESPIRATORY: Breath sounds equal bilaterally. No accessory muscle use. GASTROINTESTINAL: Abdomen soft, non-tender, nondistended. MUSCULOSKELETAL: No cyanosis, or edema. BACK: Nontender without obvious deformity. No CVA tenderness. Laboratory Laboratory Tests Test 07/31/17 07:11 Blood Urea Nitrogen 37 MG/DL Creatinine 0.90 MG/DL Random Glucose 110 MG/DL Calcium Level 8.5 MG/DL Phosphorus Level 3.2 MG/DL Magnesium Level 1.8 MG/DL Sodium Level 138 MEQ/L Potassium Level 3.6 MEQ/L Chloride Level 101 MEQ/L Carbon Dioxide Level 29.8 MEQ/L Anion Gap 7 MEQ/L Estimat Glomerular Filtration Rate 86 ML/MIN B-Type Natriuretic Peptide 501 PG/ML Assessment and Plan Problem List: (1) Cardiac arrest ICD Codes: I46.9 - Cardiac arrest, cause unspecified Status: Acute (2) Seizure disorder ICD Codes: G40.909 - Epilepsy, unspecified, not intractable, without status epilepticus (3) Ventricular fibrillation ICD Codes: I49.01 - Ventricular fibrillation (4) NSTEMI (non-ST elevated myocardial infarction) ICD Codes: I21.4 - Non-ST elevation (NSTEMI) myocardial infarction Assessment and Plan 1.) Cardiac arrest/CAD/Cardiomyopathy - alert in nad, pod#4 pci bms prox mid lad , continue aspirin, plavix, coreg, lisinopril, lipitor, f/u neuro, EP and ct surg recs, increase aldactone 50 mg bid, f/u bmp, bnp, mag in am; d/w Dr Paz , plan pci rca tuesday due to persistently elevated bnp and decompensated chf, EP study to be done either way Julio Cesar Rankin MD Jul 31, 2017 10:32
[2017-07-31] MEDS: ENOXAPARIN SODIUM 40 MG/0.4 ML SYRINGE SQ SCH (12:43)
--- NOTE | 2017-07-31 13:57 | RADRPT ---
EXAM DATE/TIME: 07/31/2017 13:12 [facility] COMPARISON: CHEST SINGLE AP, July 29, 2017, 4:43. INDICATIONS : Shortness of breath. MEDICAL HISTORY : Hypertension. Hypercholesterolemia. Diabetes. SURGICAL HISTORY : Cardiac stent. ENCOUNTER: Subsequent ACUITY: 4 - 6 days PAIN SCORE: 0/10 LOCATION: Bilateral chest FINDINGS: Resolution of diffuse patchy bilateral airspace disease. Subtle posterior costophrenic angle blunting may reflect trace pleural fluid. Cardiomediastinal contours are within normal limits. Remainder of e xam is unchanged. CONCLUSION: 1. Findings consistent with near interval resolution of pulmonary edema pattern. 2. Probable very trace bilateral pleural effusions. Nick Alcaraz MD on July 31, 2017 at 13:54 Board Certified Radiologist. This report was verified electronically.
--- NOTE | 2017-07-31 16:10 | HHI.PR ---
Subjective Remarks Patient feeling "fine" glucose has been running high. No dyspnea or chest pain. Objective Vitals Vital Signs Date Time Temp Pulse Resp B/P (MAP) Pulse Ox O2 Delivery O2 Flow Rate FiO2 07/31/17 13:00 66 07/31/17 12:00 72 07/31/17 11:37 18 07/31/17 11:00 94 Room Air 07/31/17 11:00 78 07/31/17 11:00 97.9 80 18 106/65 (79) 94 07/31/17 10:00 78 07/31/17 09:00 74 07/31/17 08:00 60 07/31/17 08:00 98.3 64 16 110/70 (83) 94 07/31/17 08:00 94 Room Air 07/31/17 07:00 72 07/31/17 06:05 73 07/31/17 05:50 68 07/31/17 04:30 76 07/31/17 03:40 60 07/31/17 03:40 95 Room Air 07/31/17 03:40 98.4 65 16 100/58 (72) 95 07/31/17 02:02 70 07/31/17 01:10 57 07/31/17 00:31 60 07/30/17 23:40 98.0 57 17 106/60 (75) 97 07/30/17 23:40 97 Room Air 07/30/17 23:39 59 07/30/17 22:00 76 07/30/17 21:12 21 07/30/17 21:00 76 07/30/17 20:20 76 07/30/17 19:40 65 07/30/17 19:30 98.2 79 16 128/86 (100) 96 07/30/17 19:30 96 Room Air 07/30/17 18:01 82 07/30/17 17:00 64 I/O 07/30/17 07/30/17 07/30/17 07/31/17 07/31/17 07/31/17 07:00 15:00 23:00 07:00 15:00 23:00 Intake Total 400 ml 1110 ml 480 ml Output Total 775 ml 650 ml 1250 ml Balance -375 ml 460 ml -770 ml Intake Oral 400 ml 960 ml 480 ml IV Total 150 ml Output Urine Total 775 ml 650 ml 1250 ml # Voids 5 # Bowel Movements 0 0 0 Result Diagram: 07/29/17 0533 07/31/17 0711 Objective Remarks GENERAL: Well-nourished, well-developed lean male patient. SKIN: Warm and dry. HEAD: Normocephalic. EYES: No scleral icterus. No injection or drainage. NECK: Supple, trachea midline. No JVD or lymphadenopathy. CARDIOVASCULAR: Regular rate and rhythm without murmurs, gallops, or rubs. RESPIRATORY: Breath sounds equal bilaterally. No accessory muscle use. GASTROINTESTINAL: Abdomen soft, non-tender, nondistended. EXTREMITIES: No cyanosis, or edema. NEUROLOGICAL: Awake, alert, and oriented x 3. Non-focal. A/P Problem List: (1) Acute respiratory failure ICD Code: J96.00 - Acute respiratory failure, unspecified whether with hypoxia or hypercapnia (2) Metabolic encephalopathy ICD Code: G93.41 - Metabolic encephalopathy (3) Ventricular fibrillation ICD Code: I49.01 - Ventricular fibrillation (4) Cardiac arrest ICD Code: I46.9 - Cardiac arrest, cause unspecified Status: Acute (5) NSTEMI (non-ST elevated myocardial infarction) ICD Code: I21.4 - Non-ST elevation (NSTEMI) myocardial infarction (6) Type 2 diabetes mellitus ICD Code: E11.9 - Type 2 diabetes mellitus without complications (7) Cocaine use ICD Code: F14.90 - Cocaine use, unspecified, uncomplicated (8) Ischemic cardiomyopathy ICD Code: I25.5 - Ischemic cardiomyopathy (9) Acute systolic CHF (congestive heart failure) ICD Code: I50.21 - Acute systolic (congestive) heart failure Assessment and Plan 61-year-old male with: 1. Out of hospital V. fib arrest status post CPR - s/p hypothermia protocol, neurologically intact. for EPS on Tuesday with Dr. Paz, possible AICD. s/p amiodarone drip. cont tele. cont coreg. 2. Acute [place] , Ischemic cardiomyopathy (EF 35% by cath 07/27), Multivessel CAD ( by cath) s/p LAD stenting -bare metal stent on 07/27/[address] Rankin. cont asa, coreg, lipitor, plavix, spironolactone. s/p eval by CT surgery - no plans for bypass due to small target vessels, cocaine use. Patient for PCI to RCA tomorrow with Dr. Rankin. S/p respiratory failure with intubation - resolved, extubated 07/25. 3. Acute decompensated systolic CHF - improved. stable on RA, no peripheral edema, on lasix 40 mg IV BID, cxr 07/29 with pulmonary edema. cont meds as above. BMP in a.m. 4. Suspected COPD with exacerbation - improved, off steroids, s/p levaquin 5 days today. 4. Insulin-dependent diabetes mellitus - uncontrolled, increase levemir 5->8 units sq bid, ssi. 5. Hypotension (resolved) 6. Encephalopathy (resolved) 7. Cocaine positive 8. Tobacco use - counseled on cessation. 9. DVT px - lovenox 40 mg sq daily. Sachi Villalobos MD Jul 31, 2017 16:10
[2017-07-31] MEDS ORDERED: GLUCAGON 1 MG/ML VIAL OTHER PRN (16:15)
[2017-07-31] MEDS ORDERED: DEXTROSE 50% IN WATER 50 ML VIAL(D50) IV PUSH PRN (16:15)
[2017-08-01] VITALS (23 sets, daily range): BP systolic 93–114; BP diastolic 53–66; PULSE 56–90; RESP 16–18; TEMP 97.4–98.7; O2SAT 94–98
[2017-08-01] MEDS: CHLORHEXIDINE GLUCONATE 2 % 1 PACK (2 CLOTHS) TOP SCH (04:00)
[2017-08-01 04:42] LABS: AUTOMATED NEUTROPHIL # 7.8 TH/MM3 (1.8-7.7); BASOPHIL % 0.1 % (0.0-2.0); EOSINOPHIL # 0.2 TH/MM3 (0-0.4); HEMATOCRIT 44.1 % (39.0-51.0); HEMO FLAGS DIFF FINAL; LYMPH % 22.4 % (9.0-44.0); LYMPHOCYTE # 2.7 TH/MM3 (1.0-4.8); MEAN CORPUSCULAR HEMOGLOBIN 27.5 PG (27.0-34.0); MONO % 11.6 % (0.0-8.0); NEUT % 63.9 % (16.0-70.0); PLATELET COUNT 244 TH/MM3 (150-450); RED BLOOD COUNT 5.44 MIL/MM3 (4.50-5.90); RED CELL DISTRIBUTION WIDTH 15.4 % (11.6-17.2); WHITE BLOOD COUNT 12.2 TH/MM3 (4.0-11.0)
[2017-08-01 05:05] LABS: ANION GAP 8 MEQ/L (5-15); BLOOD UREA NITROGEN 34 MG/DL (7-18); CHLORIDE 96 MEQ/L (98-107); GLOMERULAR FILTRATION RATE 78 ML/MIN (>89); POTASSIUM 3.6 MEQ/L (3.5-5.1); SODIUM (NA) 135 MEQ/L (136-145)
[2017-08-01] MEDS: INSULIN ASPART SUPPLEMENTAL SCALE SQ SCH ×4 (08:00→21:00)
[2017-08-01] MEDS: INSULIN DETEMIR 100 UNITS/ML VIAL SQ SCH ×2 (09:00→20:51)
[2017-08-01] MEDS: SPIRONOLACTONE 50 MG TAB PO SCH ×2 (09:00→18:00)
[2017-08-01] MEDS: CLOPIDOGREL 75 MG TAB PO SCH (09:00)
[2017-08-01] MEDS: MAGNESIUM OXIDE 400 MG TAB PO SCH ×2 (09:00→20:51)
[2017-08-01] MEDS: ATORVASTATIN 20 MG TAB PO SCH (09:42)
[2017-08-01] MEDS: LISINOPRIL 5 MG TAB PO SCH (09:43)
[2017-08-01] MEDS: ASPIRIN 81 MG CHEW TAB PO SCH (09:43)
[2017-08-01] MEDS: CARVEDILOL 6.25 MG TAB PO SCH ×2 (09:43→20:51)
[2017-08-01] MEDS: POTASSIUM CHLORIDE 25 MEQ EFFERVESCENT TAB PO SCH ×2 (09:44→20:51)
[2017-08-01] MEDS: FUROSEMIDE 40 MG/4 ML VIAL IV PUSH SCH (09:44)
[2017-08-01] MEDS: SODIUM CHLORIDE 0.9% FLUSH 10 ML FLUSH IV FLUSH SCH ×3 (09:44→21:00)
[2017-08-01 09:48] LABS: HEMOGLOBIN A1b 2.8 %; HEMOGLOBIN Ao 78.4 %; HEMOGLOBIN LA1C 3.3 %; HEMOGLOBIN P3 5.3 %
--- NOTE | 2017-08-01 09:52 | HHI.PR ---
Subjective Remarks No complaints, glucose is improved. no c/p or dyspnea, stable on RA. for LHC and EPS today. No issues overnight per RN. Objective Vitals Vital Signs Date Time Temp Pulse Resp B/P (MAP) Pulse Ox O2 Delivery O2 Flow Rate FiO2 08/01/17 07:00 98.3 79 16 103/58 (73) 96 08/01/17 07:00 79 08/01/17 06:00 84 08/01/17 05:00 68 08/01/17 04:00 76 08/01/17 03:00 98.6 75 16 93/55 (68) 94 08/01/17 03:00 64 08/01/17 02:00 74 08/01/17 01:00 72 08/01/17 00:00 72 07/31/17 23:14 16 07/31/17 23:00 72 07/31/17 23:00 98.2 68 14 83/48 (60) 93 07/31/17 22:00 70 07/31/17 21:00 74 07/31/17 20:00 64 07/31/17 19:00 98.0 67 18 91/56 (68) 96 07/31/17 19:00 74 07/31/17 15:00 98.2 60 18 85/53 (64) 96 07/31/17 15:00 96 Room Air 07/31/17 13:00 66 07/31/17 12:00 72 07/31/17 11:00 94 Room Air 07/31/17 11:00 78 07/31/17 11:00 97.9 80 18 106/65 (79) 94 07/31/17 10:00 78 I/O 07/31/17 07/31/17 07/31/17 08/01/17 08/01/17 08/01/17 07:00 15:00 23:00 07:00 15:00 23:00 Intake Total 480 ml 480 ml Output Total 1250 ml 900 ml Balance -770 ml -420 ml Intake Oral 480 ml 480 ml Output Urine Total 1250 ml 900 ml # Bowel Movements 0 1 Result Diagram: 08/01/17 0419 08/01/17418 Objective Remarks GENERAL: Well-nourished, well-developed lean male patient. SKIN: Warm and dry. HEAD: Normocephalic. EYES: No scleral icterus. No injection or drainage. NECK: Supple, trachea midline. No JVD or lymphadenopathy. CARDIOVASCULAR: Regular rate and rhythm without murmurs, gallops, or rubs. RESPIRATORY: Breath sounds equal bilaterally. No accessory muscle use. GASTROINTESTINAL: Abdomen soft, non-tender, nondistended. EXTREMITIES: No cyanosis, or edema. NEUROLOGICAL: Awake, alert, and oriented x 3. Non-focal. A/P Problem List: (1) Acute respiratory failure ICD Code: J96.00 - Acute respiratory failure, unspecified whether with hypoxia or hypercapnia (2) Metabolic encephalopathy ICD Code: G93.41 - Metabolic encephalopathy (3) Ventricular fibrillation ICD Code: I49.01 - Ventricular fibrillation (4) Cardiac arrest ICD Code: I46.9 - Cardiac arrest, cause unspecified Status: Acute (5) NSTEMI (non-ST elevated myocardial infarction) ICD Code: I21.4 - Non-ST elevation (NSTEMI) myocardial infarction (6) Type 2 diabetes mellitus ICD Code: E11.9 - Type 2 diabetes mellitus without complications (7) Cocaine use ICD Code: F14.90 - Cocaine use, unspecified, uncomplicated (8) Ischemic cardiomyopathy ICD Code: I25.5 - Ischemic cardiomyopathy (9) Acute systolic CHF (congestive heart failure) ICD Code: I50.21 - Acute systolic (congestive) heart failure Assessment and Plan 61-year-old male with: 1. Out of hospital V. fib arrest status post CPR - s/p hypothermia protocol, neurologically intact. for EPS on Tuesday with Dr. Paz, possible AICD. s/p amiodarone drip. cont tele. cont coreg. 2. Acute [place] , Ischemic cardiomyopathy (EF 35% by cath 07/27), Multivessel CAD ( by cath) s/p LAD stenting -bare metal stent on 07/27/[address] Rankin. cont asa, coreg, lipitor, plavix, spironolactone. s/p eval by CT surgery - no plans for bypass due to small target vessels, cocaine use. Patient for PCI to RCA today with Dr. Rankin. S/p respiratory failure with intubation - resolved, extubated 07/25. 3. Acute decompensated systolic CHF - improved. stable on RA, no peripheral edema, DC IV lasix, change to 40 mg PO daily. BMP in a.m. 4. Suspected COPD with exacerbation - improved, off steroids, s/p levaquin 5 days today. 4. Insulin-dependent diabetes mellitus - uncontrolled but improved, cont levemir 8 units sq bid, ssi. 5. Hypotension (resolved) 6. Encephalopathy (resolved) 7. Cocaine positive 8. Tobacco use - counseled on cessation. 9. DVT px - lovenox 40 mg sq daily. Sachi Villalobos MD Aug 01, 2017 09:52
[2017-08-01] MEDS: ENOXAPARIN SODIUM 40 MG/0.4 ML SYRINGE SQ SCH (12:00)
--- NOTE | 2017-08-01 12:21 | HHI.PR ---
Subjective Remarks feeling ok Objective Vital Signs Date Time Temp Pulse Resp B/P (MAP) Pulse Ox O2 Delivery O2 Flow Rate FiO2 08/01/17 12:00 81 08/01/17 11:00 80 08/01/17 11:00 98.4 80 16 114/60 (78) 97 08/01/17 10:00 78 08/01/17 09:00 75 08/01/17 08:00 79 08/01/17 07:00 98.3 79 16 103/58 (73) 96 08/01/17 07:00 79 08/01/17 06:00 84 08/01/17 05:00 68 08/01/17 04:00 76 08/01/17 03:00 98.6 75 16 93/55 (68) 94 08/01/17 03:00 64 08/01/17 02:00 74 08/01/17 01:00 72 08/01/17 00:00 72 07/31/17 23:14 16 07/31/17 23:00 72 07/31/17 23:00 98.2 68 14 83/48 (60) 93 07/31/17 22:00 70 07/31/17 21:00 74 07/31/17 20:00 64 07/31/17 19:00 98.0 67 18 91/56 (68) 96 07/31/17 19:00 74 07/31/17 15:00 98.2 60 18 85/53 (64) 96 07/31/17 15:00 96 Room Air 07/31/17 13:00 66 I/O 07/31/17 07/31/17 07/31/17 08/01/17 08/01/17 08/01/17 06:59 14:59 22:59 06:59 14:59 22:59 Intake Total 480 ml 480 ml Output Total 1250 ml 900 ml Balance -770 ml -420 ml Intake Oral 480 ml 480 ml Output Urine Total 1250 ml 900 ml # Bowel Movements 0 1 Result Diagram: 08/01/17 0419 08/01/17 0419 Imaging alert, fully oriented Lungs: ventilated Heart: S1, S2 regular, no gallop Abdomen: soft, no mass Ext: no edema Last Impressions Chest X-Ray 07/31/17 0000 Signed Impressions: Service Date/Time: Monday, July 31, 2017 13:12 - CONCLUSION: 1. Findings consistent with near interval resolution of pulmonary edema pattern. 2. Probable very trace bilateral pleural effusions. Nick Alcaraz MD Head CT 07/24/17 1542 Signed Impressions: Service Date/Time: Monday, July 24, 2017 17:17 - CONCLUSION: 1. No acute intracranial abnormalities. Bilateral maxillary and ethmoid sinusitis. 2. Remote lacunar infarct right caudate nucleus. Weston Farrar MD Current Medications Medications (Trade) Dose Ordered Sig/Laxmi Route Start Time Stop Time Status Last Admin Miscellaneous Information 1 Q361D XX 07/24/17 16:30 (Chlorhexidine 2% Cloth) Taper DAILY@04 TOP 07/25/17 04:00 07/21/18 03:59 07/29/17 04:00 (Chlorhexidine 2% Cloth) 3 pack UNSCH PRN TOP 07/24/17 16:30 (Duoneb Neb) 1 ampule Q2HR NEB PRN NEB 07/26/17 12:45 (Tylenol) 650 mg Q6H PRN PO 07/26/17 15:30 07/29/17 23:39 (Restoril) 15 mg HS PRN PO 07/27/17 01:00 07/29/17 20:52 (Coreg) 6.25 mg Q12HR PO 07/27/17 07:15 08/01/17 09:43 (Lipitor) 20 mg DAILY PO 07/27/17 09:00 08/01/17 09:42 (Prinivil) 5 mg DAILY PO 07/27/17 09:00 08/01/17 09:43 (NS Flush) 2 ml UNSCH PRN IV FLUSH 07/27/17 14:15 (NS Flush) 2 ml BID IV FLUSH 07/27/17 21:00 08/01/17 09:44 (Aspirin Chew) 162 mg DAILY PO 07/28/17 09:00 08/01/17 09:43 (Plavix) 75 mg DAILY PO 07/28/17 09:00 07/31/17 10:30 (Percocet 5-325 Mg) 1 tab Q4H PRN PO 07/29/17 09:45 07/31/17 21:53 (Aldactone) 50 mg BID@ PO 07/29/17 18:00 08/01/17 09:00 (Lovenox Inj) 40 mg Q24H SQ 07/29/17 12:00 07/31/17 12:43 (K-Lyte Cl Eff) 25 meq Q12HR PO 07/29/17 21:00 08/01/17 09:44 (Mag-Ox) 400 mg Q12HR PO 07/30/17 21:00 07/31/17 21:53 (Levemir Inj) 8 units Q12HR SQ 07/31/17 21:00 08/01/17 09:00 (D50w (Vial) Inj) 50 ml UNSCH PRN IV PUSH 07/31/17 16:15 (Glucagon Inj) 1 mg UNSCH PRN OTHER 07/31/17 16:15 (NovoLOG SUPPLEMENTAL SCALE) 1 ACHS SLIDING SCALE SQ 07/31/17 17:00 07/31/17 22:15 (Lasix) 40 mg DAILY PO 08/02/17 09:00 Assessment and Plan Problem List: (1) Ventricular fibrillation ICD Codes: I49.01 - Ventricular fibrillation Plan: No episode of ventricular arrhythmia since hospitalization Diffuse CAD EP study was scheduled for today I did receive a call yesterday and today from Dr Zamora. He scheduled a PTCA to RCA. In this case there is no need for EP study patient has an EF of 20% by echo. Episiode of SCD. He will need at least a defib vest before discharge home Case discussed with the patient, as well as Dr Zamora I will be available on a PRN basis. (2) NSTEMI (non-ST elevated myocardial infarction) ICD Codes: I21.4 - Non-ST elevation (NSTEMI) myocardial infarction Plan: No chest pain. No SOB Stable Ian Paz MD Aug 01, 2017 12:21
[2017-08-01] MEDS ORDERED: HEPARIN-NS/PF INJ 1,000 ML ONE ×2 (12:56→14:21)
[2017-08-01] MEDS ORDERED: HEPARIN SODIUM - IV 10,000 UNITS/10 ML VIAL ONE (13:11)
[2017-08-01] MEDS ORDERED: TIROFIBAN INFUSION INJ 250 ML IV ONE (13:31)
--- NOTE | 2017-08-01 13:52 | CATHPROC ---
[facility] HIS Report Study Information Study Number Admission Scheduled Start Study Start [id number] Jul 24 2017 5:49PM 08/01/2017 Aug 01 2017 12:37PM [place] [facility] Cardiac Catheterization Admit Source Facility Department Emergency department [facility] - Program/Music Director Physician and Clinical Staff Initial Julio Cesar Walker Applications Trainer Patrick Love,KENDRICK Applications Trainer Makayla Ross BSN Recorder Yari Swanson,VISHAL TECH2 Scrub Hosterman, [place]ito,RT(R) Procedures Performed Procedure Location (Site) Vessel Name Coronary Angiograms RCA Right Coronary Stent RCA Prox Right Coronary Wire insertion Fem Art (left) Femoral Art Equipment Time Costume Maker Description Size Mfg Part Number Used/Scraped [id number] 13:12 [employer] WIRE, ASAHI PROWATER 180CM 180CM Used *[id number] TRANSDUCER, TRUWAVE [id number] 12:38 MCGEE LLOYD * Used W/STOCKCOCK *[id number] *[id number] 12:38 [employer] PACK, CCL CUSTOM * Used *[id number] 12:38 [employer] PACER PEN, SKIN DUAL W/ RULER * Used *[id number] 13:16 [employer] STENT, 3.0 18 INTEGRITY 3.0 18 Used *[id number] 13:19 [employer] MEDICAL 30 KATJA INDEFLATOR Used *[id number] 13:02 [employer] MEDICAL SHEATH, FR6.5 PRELUDE 11CM FR 6.5 038ACT Used *[id number] 12:38 [employer] MEDICAL WIRE, 3MMJ .035 180CM 180CM Used *[id number] 12:38 NAMIC MANIFOLD, 4 PORT * Used *[id number] 12:38 [employer] OMNIPAQUE, 350 MG, 150ML 150ML [id number] Used 13:06 [employer] OMNIPAQUE, 350 MG, 50ML 50ML [id number] Used 13:06 [employer] OMNIPAQUE, 350 MG, 50ML 50ML [id number] Used 13:06 [employer] OMNIPAQUE, 350 MG, 50ML 50ML [id number] Used [id number] 12:38 [employer] MEDICAL BLANKET,WARM AIR CCL * Used *[id number] 12:38 [employer] MEDICAL SHEATH, FR4 TERUMO (10CM) FR 4 Used *[id number] Equipment Model, Serial, Lot Number and Expiration Data Description Model Number Serial Number Lot Number Expiration Date STENT, 3.0 18 INTEGRITY [id number] 02-11-2019 History: Current Medications Medication Dosage/Unit Route Frequency Last Date/Time Taken LIPITOR ASA History: Allergies Allergy Reaction No Known Allergies History: Risk Factors Family History of Hypertension Dyslipidemia Previous PR Previous Heart Failure Premature CAD Yes Yes Yes Yes Yes Prior Valve Prior PCI Prior PCIDate Prior CABG Surgery No Yes 07/27/2017 No Cerebrovascular Peripheral Artery Chronic Lung On Dialysis Diabetes Diabetes Therapy Disease Disease Disease No No No No Yes Insulin History: Symptoms/Diagnosis Selection Items Chest pain History: CV Disease Selection Items Cardiomyopathy Known CAD History: Stress Tests Stress or Imaging Studies Performed No History: PR/CV Data Previous Cath Date 07/27/2017 History: Other Current Smoker Method Packs a Day Years Used Pack Years Yes Cigarettes 1 30 30 Labs Hgb (g/dl) Hct (%) WBC (l/cumm) Platelets (thousands) 11.60-17.00 35.00-51.00 4.00-11.00 150.00-450.00 15.0 44.1 12.2 244 Glucose (mg/dl) BUN (mg/dl) Creatinine (mg/dl) BUN:Creatinine (1:x) 74.00-106.00 7.00-18.00 0.50-1.30 10.00-20.00 224 34 0.9 37.8 Na (meq/l) K (meq/l) 136.00-145.00 3.50-5.10 135 3.6 CPK-MB (ng/ML) 0.50-3.60 Not Drawn Medication Medication Total Dose (Bolus/Oral) Medication Total Dosage/Unit 1% XYLOCAINE 20 mL AGGRASTAT BOLUS 37.5 mL FENTANYL 25 mcg HEPARIN 5600 units NTG (IC) 200 mcg Medications (Bolus/Oral) Medication Time Given Dosage/Unit Administered By Reason 1% XYLOCAINE 08/01/2017 1:11:37 PM 20 mL Julio Cesar Rankin 20 mL 1% XYLOCAINE given in lab by Julio Cesar Rankin in Left Groin via Subcutaneous. FENTANYL 08/01/2017 1:13:12 PM 12.5 mcg Patrick Love 12.5 mcg FENTANYL given in lab by Patrick Love RN in Left Forearm via Peripheral IV. Ordered by Julio Cesar Brooks. HEPARIN 08/01/2017 1:13:22 PM 5600 units Patrick Love 5600 units HEPARIN given in lab by Patrick Love RN in Left Forearm via Peripheral IV. Ordered by Julio Cesar Feliz. FENTANYL 08/01/2017 1:15:04 PM 12.5 mcg Patrick Love 12.5 mcg FENTANYL given in lab by Patrick Love RN in Left Forearm via Peripheral IV. Ordered by Julio Cesar Brooks. AGGRASTAT BOLUS 08/01/2017 1:20:19 PM 37.5 mL Patrick Love 37.5 mL AGGRASTAT BOLUS given in lab by Patrick Love RN in Left Forearm via Peripheral IV. Ordered by Julio Cesar Rankin. NTG (IC) 08/01/2017 1:22:01 PM 200 mcg Julio Cesar Rankin 200 mcg NTG (IC) given in lab by Julio Cesar Rankin via Intra-coronary. Ordered by Juilo Cesar aRnkin. Medication (Drip) Medication Time Given Dosage/Unit Concentration/Unit Diluent (ml) Solution AGGRASTAT DRIP 08/01/2017 1:21:16 PM 0.144 mcg/kg/min 12.5 mg 250 NaCl .9 0.144 mcg/kg/min AGGRASTAT DRIP given in lab by Patrick Love RN in Left Forearm via Peripheral IV. Pump/Drip Flow = 13.5 ml/hr using NaCl .9 with a concentration of 12.5 mg in 250 ml. Ordered by Julio Cesar Rankin. IV Solutions 08/01/2017 12:53:29 PM 0 mL (IV) 500 NaCl .9 IV Solutions given in lab by Makayla Ross BSN in Left Forearm via Peripheral IV. Pump/Drip Fl ow = 20 ml/hr using NaCl .9. Final Case Assessment Cardiovascular HR Rhythm NIBP Chest Pain 80 sr 112/68 0 Circulatory - Right Pulses Dorsalis Pedis Femoral 1 1 Scale (0,1,2,3,4,d) Circulatory - Left Pulses Dorsalis Pedis Femoral 1 1 Scale (0,1,2,3,4,d) Neurological State Oriented to time-place- Alert Moves all extremities person Respiration - General Respiration Rate SpO2 (%) (B/min) 18 94 Chronological Log Time Study Chronological Log 12:50:33 Patient arrived via Bed. 12:50:38 Patient Name, D.O.B, / Armband Verified By R.N. 12:52:44 Consent signed by the physician and the patient and verified by the Program/Music Director staff. 12:52:48 Pre-op and post- op instructions given; patient acknowledges understanding of instructions. 12:52:49 Verbal Stimulation=2 Physical Stimulation=2 Airway=2 Respiration=2 TOTAL=8. (0=absent, 1=li mited, 2=present) 12:53:00 Presedation assessment performed by Program/Music Director RN. 12:53:02 Patient has been NPO for More than 6Hrs. 12:53:03 Skin Breakdown-scabs noted at discontinued IV sites. 12:53:05 Susanne Prominences Protected 12:53:08 A # 20 IV was noted in the Hand (right). Grade = 0 12:53:11 History and physical on the chart or being dictated. 12:53:17 A # 20 IV was noted in the Forearm (left). Grade = patent IV Solutions given in lab by Makayla Ross BSN in Left Forearm via Peripheral IV. Pump/D rip Flow = 20 ml/hr 12:53:29 using NaCl .9. Vitals capture started with the following parameters, Patient=Adult, Interval=5 min, Initial Pr qscqun=701 mmHg, 13:00:01 Deflation Rate=5 mmHg, Cuff placed on Left Arm 13:00:32 HR=78 bpm, TJFD=445/76 mmhg, SpO2=96.0 %, Resp=17 B/min 13:02:24 Reference ECG taken 13:02:36 Bilateral groins prepped with 2% chlorhexidine, and draped after a 3 minute waiting time. 13:05:31 HR=76 bpm, DFCW=590/71 mmhg, SpO2=95.0 %, Resp=10 B/min, Pain=0, Nassar=2 13:06:06 Pressure channel 1 zeroed. 13:09:24 MD arrived. 13:10:32 HR=79 bpm, YKLR=616/72 mmhg, SpO2=94.0 %, Resp=9 B/min Time Out. Correct patient, correct procedure, correct physician, power injector not loaded with contrast with surgical 13:11:28 team present. Time Out Concurred by MD and individual staff in procedure. 13:11:36 Case Start 13:11:37 20 mL 1% XYLOCAINE given in lab by Julio Cesar Rankin in Left Groin via Subcutaneous. 13:12:40 Access site was Left Femoral Artery. 13:12:58 A SHEATH, FR6.5 PRELUDE 11CM FR 6.5 was advanced into the Fem Art (left) using the Percutan eous technique. 13:13:12 12.5 mcg FENTANYL given in lab by Patrick Love RN in Left Forearm via Peripheral IV. Ord ered by Julio Cesar Rankin. 13:13:15 A AR 1 GUIDE CATHETER FR 6 was advanced over a wire. OMNIPAQUE, 350 MG, 50ML 50ML was used for injections. 13:13:22 5600 units HEPARIN given in lab by Patrick Love RN in Left Forearm via Peripheral IV. Or dered by Juli oCesar Rankin. 13:15:04 12.5 mcg FENTANYL given in lab by Patrick Love RN in Left Forearm via Peripheral IV. Ord ered by Julio Cesar Rankin. 13:15:31 HR=78 bpm, EDBS=249/72 mmhg, SpO2=96.0 %, Resp=19 B/min 13:15:46 A WIRE, ASAHI PROWATER 180CM 180CM was inserted via Fem Art (left). An STENT, 3.0 18 INTEGRITY 3.0 18 Bare Metal Stent was inserted through a AR 1 GUIDE CATHETER F R 6 over a 13:17:13 WIRE, ASAHI PROWATER 180CM 180CM. A STENT, 3.0 18 INTEGRITY 3.0 18 was deployed using a 30 KATJA INDEFLATOR at 10 atmospheres for 1 0 seconds in 13:18:29 the RCA Prox. 13:19:13 Delivery device removed 13:19:26 Wire removed Recorded Pressure: Ao, HR=82, Condition=Condition 1 13:20:06 (Aorta) Ao 93/56/71 37.5 mL AGGRASTAT BOLUS given in lab by Patrick Love RN in Left Forearm via Peripheral IV. O rdered by Massiel 13:20:19 Julio Cesar. 13:20:27 The RCA was injected and visualized at various angles. OMNIPAQUE, 350 MG, 50ML 50ML used. 13:20:32 HR=82 bpm, SDLZ=297/67 mmhg, SpO2=97.0 %, Resp=12 B/min 0.144 mcg/kg/min AGGRASTAT DRIP given in lab by Patrick Love, RN in Left Forearm via Peripher al IV. Pump/Drip 13:21:16 Flow = 13.5 ml/hr using NaCl .9 with a concentration of 12.5 mg in 250 ml. Ordered by Julio Cesar Rankin. 13:22:01 200 mcg NTG (IC) given in lab by Julio Cesar Rankin via Intra-coronary. Ordered by Julio Cesar Rankin. 13:23:14 The RCA was injected and visualized at various angles. OMNIPAQUE, 350 MG, 50ML 50ML used. 13:23:23 Catheter and wire removed 13:24:27 Case End 13:25:00 Activated Clotting Time Drawn 13:25:29 HR=83 bpm, CXWO=663/68 mmhg, SpO2=93.0 %, Resp=18 B/min 13:28:26 In the Fem Art (left) the SHEATH, FR6.5 PRELUDE 11CM FR 6.[address] by Julio Cesar Vazquez. 13:28:35 Sterile dressing applied to site 13:28:36 No case complications noted. 13:28:37 Cine recording checked. Assessment: Final Case, HR=80 BPM, Rhythm=sr, FFAD=836/68 mmhg, Chest Pain=0 Right Pulses: Zachery Ped=1, Femoral=1 13:28:40 Left Pulses: Zachery Ped=1, Femoral=1 Neurological: State=Alert, Ox3, IVAN Respiration: Resp=18 B/min, SpO2=94 % 13:30:19 ACT (Normal Range 90-180) = 252 13:30:32 HR=81 bpm, NJJR=187/72 mmhg, SpO2=91.0 %, Resp=12 B/min, Pain=1, Nassar=2 13:38:49 Patient moved to bed 13:39:41 [facility] End Study - Maximum Contrast Load Max Contrast Load (mL) 433.3 End Study - Radiation Exposure Fluoro Time (minutes) 6.6 End Study - Patient Disposition Complications Transferred To Interventional Outcome No Critical Care Bed successful
[2017-08-01] MEDS ORDERED: SODIUM CHLORIDE 0.9% FLUSH 10 ML FLUSH IV FLUSH PRN (14:15)
[2017-08-01] MEDS ORDERED: MISC INFORMATION XX ONE (14:15)
[2017-08-01] MEDS ORDERED: IOHEXOL 350 MG/ML 50 ML BTL (for Cath Lab) OTHER ONE (14:17)
[2017-08-01] MEDS: TIROFIBAN INFUSION INJ 250 ML IV SCH (19:00)
[2017-08-01] MEDS: oxyCODONE/ACETAMINOPHEN 5 MG/325 MG TAB PO PRN (19:29)
[2017-08-02] VITALS (28 sets, daily range): BP systolic 87–104; BP diastolic 51–60; PULSE 66–88; RESP 17–18; TEMP 98–98.4; O2SAT 95–98
[2017-08-02] MEDS: TIROFIBAN INFUSION INJ 250 ML IV SCH (03:30)
[2017-08-02] MEDS: CHLORHEXIDINE GLUCONATE 2 % 1 PACK (2 CLOTHS) TOP SCH (04:00)
[2017-08-02 05:38] LABS: AUTOMATED NEUTROPHIL # 8.3 TH/MM3 (1.8-7.7); BASOPHIL % 0.1 % (0.0-2.0); EOSINOPHIL # 0.3 TH/MM3 (0-0.4); EOSINOPHIL % 2.2 % (0.0-4.0); HEMATOCRIT 42.7 % (39.0-51.0); HEMO FLAGS DIFF FINAL; LYMPH % 17.1 % (9.0-44.0); LYMPHOCYTE # 2.1 TH/MM3 (1.0-4.8); MEAN CELL VOLUME 81.9 FL (80.0-100.0); MEAN CORPUSCULAR HEMOGLOBIN 27.1 PG (27.0-34.0); MEAN CORPUSCULAR HGB CONC 33.1 % (32.0-36.0); MONO % 13.2 % (0.0-8.0); NEUT % 67.4 % (16.0-70.0); PLATELET COUNT 240 TH/MM3 (150-450); RED BLOOD COUNT 5.22 MIL/MM3 (4.50-5.90); RED CELL DISTRIBUTION WIDTH 15.4 % (11.6-17.2); WHITE BLOOD COUNT 12.3 TH/MM3 (4.0-11.0)
[2017-08-02 06:00] LABS: MAGNESIUM 1.7 MG/DL (1.5-2.5); POTASSIUM 3.7 MEQ/L (3.5-5.1)
[2017-08-02] MEDS: INSULIN ASPART SUPPLEMENTAL SCALE SQ SCH ×4 (08:00→21:00)
--- NOTE | 2017-08-02 08:36 | MA ---
cc: JULIO CESAR GOODMAN M.D. DATE: 08/01/2017 PROCEDURE PERFORMED Direct PCI with bare metal stent of the proximal right coronary artery. INDICATIONS 1. Coronary artery disease. 2. Persistent decompensated congestive heart failure despite optimal medical therapy. 3. [place] Heart Association Class IV CHF. 4. [place] Cardiovascular Society Class IV angina or anginal equivalent. 5. 80% proximal right coronary artery stenosis. PROCEDURE The patient was brought to the Cardiac Catheterization Laboratory and prepped and draped in the usual sterile fashion. 10 cc of 1% lidocaine was used to locally anesthetize the left common femoral artery. The left common femoral artery was used as prior access had been obtained from a non-cardiology procedure. A 6-Kazakh AR1 guide was placed into the proximal right coronary artery. 17 units/kg of heparin was given. ACT was 252. NOTE: There was complete dampening of the waveform with the guide catheter in place. I immediately placed a 0.014 [place]ater guidewire into the distal right coronary artery, backed the guide back. Normal hemodynamics ensued shortly thereafter. I then placed a 3.0/18 Integrity stent, one inflation at 10 atmospheres for 20 seconds. Stenosis went from 80% to 0% with BAILEY-3 flow. NOTE: There was focal spasm in the proximal right coronary artery which was completely relieved with 200 mcg of intracoronary nitroglycerin. NOTE: There remained a 60% stenosis in the distal right coronary artery. CONCLUSIONS 1. Successful PCI with bare metal stent of the proximal right coronary artery from 80% to 0% with BAILEY-3 flow. 2. Severe spasm of 95% of proximal right coronary artery which was focal, completely relieved with 200 mcg of intracoronary nitroglycerin. RECOMMENDATIONS 1. Recommend continue aspirin 162 mg daily. 2. Plavix 75 mg daily. 3. We will re-bolus Hydrostat drip per protocol. 4. Continue statin therapy. Julio Cesar Goodman MD AWC/SSB /1:34 PM /8:08 AM
[2017-08-02] MEDS: INSULIN DETEMIR 100 UNITS/ML VIAL SQ SCH ×2 (08:52→21:59)
[2017-08-02] MEDS: MAGNESIUM OXIDE 400 MG TAB PO SCH ×2 (08:54→21:51)
[2017-08-02] MEDS: ASPIRIN 81 MG CHEW TAB PO SCH (08:54)
[2017-08-02] MEDS: CARVEDILOL 6.25 MG TAB PO SCH ×2 (08:54→21:00)
[2017-08-02] MEDS: ATORVASTATIN 20 MG TAB PO SCH (08:55)
[2017-08-02] MEDS: LISINOPRIL 5 MG TAB PO SCH (08:55)
[2017-08-02] MEDS: FUROSEMIDE 40 MG TAB PO SCH (08:55)
[2017-08-02] MEDS: CLOPIDOGREL 75 MG TAB PO SCH (08:56)
[2017-08-02] MEDS: SODIUM CHLORIDE 0.9% FLUSH 10 ML FLUSH IV FLUSH SCH ×4 (09:00→21:00)
[2017-08-02] MEDS: POTASSIUM CHLORIDE 25 MEQ EFFERVESCENT TAB PO SCH ×2 (09:00→21:51)
--- NOTE | 2017-08-02 09:21 | HHI.PR ---
Subjective Remarks Had cath yesterday with stent to RCA. Did not sleep well. Mild c/p this morning from CPR. No dyspnea. Objective Vitals Vital Signs Date Time Temp Pulse Resp B/P (MAP) Pulse Ox O2 Delivery O2 Flow Rate FiO2 08/02/17 08:21 98.1 81 18 104/60 (75) 96 08/02/17 07:00 76 08/02/17 06:00 66 08/02/17 05:03 88 08/02/17 04:00 66 08/02/17 03:00 82 08/02/17 03:00 98.4 82 18 93/53 (66) 95 08/02/17 02:00 83 08/02/17 01:00 73 08/02/17 00:00 72 08/01/17 23:00 98.0 56 16 94/53 (67) 95 08/01/17 23:00 90 08/01/17 22:00 72 08/01/17 21:00 66 08/01/17 20:50 18 08/01/17 20:00 80 08/01/17 19:00 98.7 85 18 105/66 (79) 95 08/01/17 19:00 88 08/01/17 18:00 76 08/01/17 17:00 78 08/01/17 16:00 79 08/01/17 15:00 97.4 79 16 112/58 (76) 98 08/01/17 15:00 79 08/01/17 14:00 76 08/01/17 12:00 81 08/01/17 11:00 80 08/01/17 11:00 98.4 80 16 114/60 (78) 97 08/01/17 10:00 78 I/O 08/01/17 08/01/17 08/01/17 08/02/17 08/02/17 08/02/17 07:00 15:00 23:00 07:00 15:00 23:00 Intake Total 480 ml 400 ml 751 ml Output Total 900 ml 600 ml 1150 ml Balance -420 ml -200 ml -399 ml Intake Oral 480 ml 400 ml 480 ml IV Total 271 ml Output Urine Total 900 ml 600 ml 1150 ml # Bowel Movements 1 0 Result Diagram: 08/02/17 0500 08/02/17 0500 Objective Remarks GENERAL: Well-nourished, well-developed lean male patient. SKIN: Warm and dry. HEAD: Normocephalic. EYES: No scleral icterus. No injection or drainage. NECK: Supple, trachea midline. No JVD or lymphadenopathy. CARDIOVASCULAR: Regular rate and rhythm without murmurs, gallops, or rubs. RESPIRATORY: Breath sounds equal bilaterally. No accessory muscle use. GASTROINTESTINAL: Abdomen soft, non-tender, nondistended. EXTREMITIES: No cyanosis, or edema. NEUROLOGICAL: Awake, alert, and oriented x 3. Non-focal. A/P Problem List: (1) Acute respiratory failure ICD Code: J96.00 - Acute respiratory failure, unspecified whether with hypoxia or hypercapnia Status: Resolved (2) Metabolic encephalopathy ICD Code: G93.41 - Metabolic encephalopathy Status: Resolved (3) Ventricular fibrillation ICD Code: I49.01 - Ventricular fibrillation Status: Acute (4) Cardiac arrest ICD Code: I46.9 - Cardiac arrest, cause unspecified Status: Acute (5) NSTEMI (non-ST elevated myocardial infarction) ICD Code: I21.4 - Non-ST elevation (NSTEMI) myocardial infarction Status: Acute (6) Type 2 diabetes mellitus ICD Code: E11.9 - Type 2 diabetes mellitus without complications Status: Chronic (7) Cocaine use ICD Code: F14.90 - Cocaine use, unspecified, uncomplicated (8) Ischemic cardiomyopathy ICD Code: I25.5 - Ischemic cardiomyopathy Status: Acute (9) Acute systolic CHF (congestive heart failure) ICD Code: I50.21 - Acute systolic (congestive) heart failure Status: Resolved Assessment and Plan 61-year-old male with: 1. Out of hospital V. fib arrest status post CPR - s/p hypothermia protocol, neurologically intact.for lifevest per Dr. Paz. s/p amiodarone drip. cont tele. cont coreg. 2. Acute ID , Ischemic cardiomyopathy (EF 35% by cath 07/27), Multivessel CAD ( by cath) s/p LAD stenting -bare metal stent on 07/27/[address] Rankin. cont asa, coreg, lipitor, plavix, spironolactone. s/p eval by CT surgery - no plans for bypass due to small target vessels, cocaine use. S/p PCI to RCA 08/[address] Rankin. S/p respiratory failure with intubation - resolved, extubated 07/25. stable on RA. 3. Acute decompensated systolic CHF - improved. stable on RA, no peripheral edema, cont lasix 40 mg PO daily. 4. Suspected COPD with exacerbation - improved, off steroids, s/p levaquin 5 days today. 4. Insulin-dependent diabetes mellitus - uncontrolled but improved, increase levemir 8->10 units sq bid, ssi. 5. Hypotension (resolved) 6. Encephalopathy (resolved) 7. Cocaine positive 8. Tobacco use - counseled on cessation. 9. DVT px - lovenox 40 mg sq daily. Discharge Planning Anticipate DC home once lifevest is arranged. Sachi Villalobos MD Aug 02, 2017 09:21
[2017-08-02] MEDS: SPIRONOLACTONE 50 MG TAB PO SCH ×2 (09:46→17:48)
[2017-08-02] MEDS ORDERED: DEFIB EXTERNAL (10:43)
[2017-08-02] MEDS ORDERED: ASPI81 PO (11:44)
[2017-08-02] MEDS ORDERED: ALDA50TA2 PO (11:44)
[2017-08-02] MEDS ORDERED: LEVEMIR SQ (11:44)
[2017-08-02] MEDS ORDERED: POTA-163 PO (11:44)
[2017-08-02] MEDS ORDERED: CARV6.25 PO (11:44)
[2017-08-02] MEDS ORDERED: FURO40TA PO (11:44)
[2017-08-02] MEDS ORDERED: ATOR20TA15 PO (11:44)
[2017-08-02] MEDS ORDERED: LISI-519 PO (11:44)
[2017-08-02] MEDS: ENOXAPARIN SODIUM 40 MG/0.4 ML SYRINGE SQ SCH (12:06)
--- NOTE | 2017-08-02 14:53 | PD.CARD.PN ---
Subjective Subjective Remarks GENERAL: SKIN: Warm and dry. HEAD: Normocephalic. EYES: No scleral icterus. No injection or drainage. NECK: Supple, trachea midline. No JVD or lymphadenopathy. CARDIOVASCULAR: Regular rate and rhythm without murmurs, gallops, or rubs. RESPIRATORY: Breath sounds equal bilaterally. No accessory muscle use. GASTROINTESTINAL: Abdomen soft, non-tender, nondistended. MUSCULOSKELETAL: No cyanosis, or edema. BACK: Nontender without obvious deformity. No CVA tenderness. extubated, alert in nad, denies chest pain or dyspnea Objective Medications Current Medications Medications (Trade) Dose Ordered Sig/Laxmi Route Start Time Stop Time Status Last Admin Miscellaneous Information 1 Q361D XX 07/24/17 16:30 (Chlorhexidine 2% Cloth) Taper DAILY@04 TOP 07/25/17 04:00 07/21/18 03:59 07/29/17 04:00 (Chlorhexidine 2% Cloth) 3 pack UNSCH PRN TOP 07/24/17 16:30 (Duoneb Neb) 1 ampule Q2HR NEB PRN NEB 07/26/17 12:45 (Tylenol) 650 mg Q6H PRN PO 07/26/17 15:30 07/29/17 23:39 (Restoril) 15 mg HS PRN PO 07/27/17 01:00 07/29/17 20:52 (Coreg) 6.25 mg Q12HR PO 07/27/17 07:15 08/02/17 08:54 (Lipitor) 20 mg DAILY PO 07/27/17 09:00 08/02/17 08:55 (Prinivil) 5 mg DAILY PO 07/27/17 09:00 08/02/17 08:55 (NS Flush) 2 ml UNSCH PRN IV FLUSH 07/27/17 14:15 (NS Flush) 2 ml BID IV FLUSH 07/27/17 21:00 08/02/17 09:46 (Percocet 5-325 Mg) 1 tab Q4H PRN PO 07/29/17 09:45 08/01/17 19:29 (Aldactone) 50 mg BID@,18 PO 07/29/17 18:00 08/02/17 09:46 (Lovenox Inj) 40 mg Q24H SQ 12/1/17 12:00 08/02/17 12:06 (K-Lyte Cl Eff) 25 meq Q12HR PO 07/29/17 21:00 08/02/17 09:00 (Mag-Ox) 400 mg Q12HR PO 07/30/17 21:00 08/02/17 08:54 (D50w (Vial) Inj) 50 ml UNSCH PRN IV PUSH 07/31/17 16:15 (Glucagon Inj) 1 mg UNSCH PRN OTHER 07/31/17 16:15 (NovoLOG SUPPLEMENTAL SCALE) 1 ACHS SLIDING SCALE SQ 07/31/17 17:00 08/02/17 12:00 (Lasix) 40 mg DAILY PO 08/02/17 09:00 08/02/17 08:55 (NS Flush) 2 ml UNSCH PRN IV FLUSH 08/01/17 14:15 (NS Flush) 2 ml BID IV FLUSH 08/01/17 21:00 (Aspirin Chew) 162 mg DAILY PO 08/02/17 09:00 08/02/17 08:54 (Plavix) 75 mg DAILY PO 08/02/17 09:00 08/02/17 08:56 (Levemir Inj) 12 units Q12HR SQ 08/02/17 21:00 Vital Signs / I&O Vital Signs Date Time Temp Pulse Resp B/P (MAP) Pulse Ox O2 Delivery O2 Flow Rate FiO2 08/02/17 11:06 98.1 82 17 91/54 (66) 98 08/02/17 11:00 79 08/02/17 10:00 84 08/02/17 09:00 80 08/02/17 08:21 98.1 81 18 104/60 (75) 96 08/02/17 08:00 76 08/02/17 07:00 76 08/02/17 06:00 66 08/02/17 05:03 88 08/02/17 04:00 66 08/02/17 03:00 82 08/02/17 03:00 98.4 82 18 93/53 (66) 95 08/02/17 02:00 83 08/02/17 01:00 73 08/02/17 00:00 72 08/01/17 23:00 98.0 56 16 94/53 (67) 95 08/01/17 23:00 90 08/01/17 22:00 72 08/01/17 21:00 66 08/01/17 20:50 18 08/01/17 20:00 80 08/01/17 19:00 98.7 85 18 105/66 (79) 95 08/01/17 19:00 88 08/01/17 18:00 76 08/01/17 17:00 78 08/01/17 16:00 79 08/01/17 15:00 97.4 79 16 112/58 (76) 98 08/01/17 15:00 79 I/O 08/01/17 08/01/17 08/01/17 08/02/17 08/02/17 08/02/17 07:00 15:00 23:00 07:00 15:00 23:00 Intake Total 480 ml 400 ml 751 ml Output Total 900 ml 600 ml 1150 ml Balance -420 ml -200 ml -399 ml Intake Oral 480 ml 400 ml 480 ml IV Total 271 ml Output Urine Total 900 ml 600 ml 1150 ml # Bowel Movements 1 0 Physical Exam GENERAL: SKIN: Warm and dry. HEAD: Normocephalic. EYES: No scleral icterus. No injection or drainage. NECK: Supple, trachea midline. No JVD or lymphadenopathy. CARDIOVASCULAR: Regular rate and rhythm without murmurs, gallops, or rubs. RESPIRATORY: Breath sounds equal bilaterally. No accessory muscle use. GASTROINTESTINAL: Abdomen soft, non-tender, nondistended. MUSCULOSKELETAL: No cyanosis, or edema. BACK: Nontender without obvious deformity. No CVA tenderness. Laboratory Laboratory Tests Test 08/02/17 05:00 White Blood Count 12.3 TH/MM3 Red Blood Count 5.22 MIL/MM3 Hemoglobin 14.1 GM/DL Hematocrit 42.7 % Mean Corpuscular Volume 81.9 FL Mean Corpuscular Hemoglobin 27.1 PG Mean Corpuscular Hemoglobin Concent 33.1 % Red Cell Distribution Width 15.4 % Platelet Count 240 TH/MM3 Mean Platelet Volume 9.2 FL Neutrophils (%) (Auto) 67.4 % Lymphocytes (%) (Auto) 17.1 % Monocytes (%) (Auto) 13.2 % Eosinophils (%) (Auto) 2.2 % Basophils (%) (Auto) 0.1 % Neutrophils # (Auto) 8.3 TH/MM3 Lymphocytes # (Auto) 2.1 TH/MM3 Monocytes # (Auto) 1.6 TH/MM3 Eosinophils # (Auto) 0.3 TH/MM3 Basophils # (Auto) 0.0 TH/MM3 CBC Comment DIFF FINAL Differential Comment Blood Urea Nitrogen 35 MG/DL Creatinine 0.90 MG/DL Random Glucose 270 MG/DL Calcium Level 8.2 MG/DL Magnesium Level 1.7 MG/DL Sodium Level 135 MEQ/L Potassium Level 3.7 MEQ/L Chloride Level 97 MEQ/L Carbon Dioxide Level 30.0 MEQ/L Anion Gap 8 MEQ/L Estimat Glomerular Filtration Rate 86 ML/MIN Total Creatine Kinase 26 U/L B-Type Natriuretic Peptide 443 PG/ML Triglycerides Level 158 MG/DL Cholesterol Level 77 MG/DL LDL Cholesterol 15 MG/DL HDL Cholesterol 30.0 MG/DL Cholesterol/HDL Ratio 2.56 RATIO Assessment and Plan Problem List: (1) Cardiac arrest ICD Codes: I46.9 - Cardiac arrest, cause unspecified Status: Acute (2) Seizure disorder ICD Codes: G40.909 - Epilepsy, unspecified, not intractable, without status epilepticus (3) Ventricular fibrillation ICD Codes: I49.01 - Ventricular fibrillation Status: Acute (4) NSTEMI (non-ST elevated myocardial infarction) ICD Codes: I21.4 - Non-ST elevation (NSTEMI) myocardial infarction Status: Acute Assessment and Plan 1.) Cardiac arrest/CAD/Cardiomyopathy - alert in nad, pod#5 pci bms prox mid lad , and pod #1 bms prox rca, continue aspirin, plavix, coreg, lisinopril, lipitor , f/u neuro, EP and ct surg recs, increase aldactone 50 mg bid, f/u bmp, bnp, mag in am; d/w Dr Paz, i planned pci om today due to persistently elevated bnp and decompensated chf, and possibility og etiology of cardiac arrest, patient understands and refuses pci and requests discharge, he is assymptomatic except for chest pain with cough and ambulating without dyspnea on exertion, life vest has been ordered and he will f/u with [facility] this week ; he understands he has risk of sudden or decompensated chf without revascularization of om Julio Cesar Rankin MD Aug 02, 2017 14:53
[2017-08-02] MEDS: TEMAZEPAM 15 MG CAP PO PRN (21:51)
--- NOTE | 2017-08-02 22:34 | EKG ---
Date Performed: 08/02/2017 Time Performed: 03:40:42 PTAGE: 61 years EKG: Sinus rhythm Inferior/lateral ST-T changes are nonspecific Borderline ECG Compared to prior tracing no significan t change DOCTOR: Rakesh Schaefer Interpretating Date/Time 08/02/2017 22:33:14
[2017-08-03] VITALS (13 sets, daily range): BP systolic 90–91; BP diastolic 55–58; PULSE 73–87; RESP 17–18; TEMP 97.6–98.4; O2SAT 98
[2017-08-03] MEDS: CHLORHEXIDINE GLUCONATE 2 % 1 PACK (2 CLOTHS) TOP SCH (03:11)
[2017-08-03] MEDS: LISINOPRIL 5 MG TAB PO SCH (07:45)
[2017-08-03] MEDS: CARVEDILOL 6.25 MG TAB PO SCH (07:45)
[2017-08-03] MEDS: SODIUM CHLORIDE 0.9% FLUSH 10 ML FLUSH IV FLUSH SCH ×2 (07:46→09:08)
[2017-08-03] MEDS: INSULIN ASPART SUPPLEMENTAL SCALE SQ SCH (08:00)
[2017-08-03] MEDS: SPIRONOLACTONE 50 MG TAB PO SCH (09:00)
[2017-08-03] MEDS: POTASSIUM CHLORIDE 25 MEQ EFFERVESCENT TAB PO SCH (09:00)
[2017-08-03] MEDS: ASPIRIN 81 MG CHEW TAB PO SCH (09:05)
[2017-08-03] MEDS: ATORVASTATIN 20 MG TAB PO SCH (09:05)
[2017-08-03] MEDS: CLOPIDOGREL 75 MG TAB PO SCH (09:06)
[2017-08-03] MEDS: FUROSEMIDE 40 MG TAB PO SCH (09:06)
[2017-08-03] MEDS: MAGNESIUM OXIDE 400 MG TAB PO SCH (09:07)
[2017-08-03] MEDS: INSULIN DETEMIR 100 UNITS/ML VIAL SQ SCH (09:09)
--- NOTE | 2017-08-03 09:39 | HHI.DS ---
Discharge Summary Admission Date Jul 24, 2017 at 17:49 Discharge Date: Aug 03, 2017 Admitting Diagnosis (1) Acute respiratory failure ICD Code: J96.00 - Acute respiratory failure, unspecified whether with hypoxia or hypercapnia Status: Resolved (2) Metabolic encephalopathy ICD Code: G93.41 - Metabolic encephalopathy Status: Resolved (3) Ventricular fibrillation ICD Code: I49.01 - Ventricular fibrillation Status: Acute (4) Cardiac arrest ICD Code: I46.9 - Cardiac arrest, cause unspecified Status: Acute (5) NSTEMI (non-ST elevated myocardial infarction) ICD Code: I21.4 - Non-ST elevation (NSTEMI) myocardial infarction Status: Acute (6) Type 2 diabetes mellitus ICD Code: E11.9 - Type 2 diabetes mellitus without complications Status: Chronic (7) Cocaine use ICD Code: F14.90 - Cocaine use, unspecified, uncomplicated (8) Ischemic cardiomyopathy ICD Code: I25.5 - Ischemic cardiomyopathy Status: Acute (9) Acute systolic CHF (congestive heart failure) ICD Code: I50.21 - Acute systolic (congestive) heart failure Status: Resolved Procedures Left heart catheterization 2 Orotracheal intubation and mechanical ventilation Brief History - From Admission 61-year-old male with medical history significant for hypertension, insulin- dependent diabetes mellitus who was in his usual state of health today. While being driven by a family member he suddenly became unresponsive with a seizure. He was taken out of his car and had bystander CPR for 3-5 minutes by dipper clock and watch hands who happened to be around. On EMS arrival patient was noted to be in V. fib arrest. He underwent DC shock 3 following which she had return of spontaneous circulation. He was having spontaneous respirations which were agonal and he is brought to the ER by EMS. Patient was comatose with GCS of 3 per documentation and did not appear to be protecting his airway hence was intubated for airway protection and placed on mechanical ventilation in the ER. He did receive it, date and succinylcholine for intubation. He was subsequently initiated on propofol for sedation as he was fighting the ventilator however dropped his blood pressure hence propofol was held. Dr. Massiel from cardiology was contacted regarding V. fib arrest and did not want to proceed with cardiac catheterization at that time. Critical care medicine was contacted to see if patient was a candidate for therapeutic hypothermia. I came to the ER and evaluated the patient immediately on being notified. His labs and head CT were pending at the time of my evaluation. Patient was comatose off propofol not responding to painful stimuli intubated on mechanical ventilation. Per family patient was absolutely asymptomatic prior to becoming unresponsive. CBC/BMP: 08/02/17 0500 08/02/17 0500 Significant Findings Laboratory Tests Test 08/01/17 04:19 08/02/17 05:00 White Blood Count 12.2 TH/MM3 (4.0-11.0) 12.3 TH/MM3 (4.0-11.0) Monocytes (%) (Auto) 11.6 % (0.0-8.0) 13.2 % (0.0-8.0) Neutrophils # (Auto) 7.8 TH/MM3 (1.8-7.7) 8.3 TH/MM3 (1.8-7.7) Monocytes # (Auto) 1.4 TH/MM3 (0-0.9) 1.6 TH/MM3 (0-0.9) Blood Urea Nitrogen 34 MG/DL (7-18) 35 MG/DL (7-18) Random Glucose 224 MG/DL (74-106) 270 MG/DL (74-106) Sodium Level 135 MEQ/L (136-145) 135 MEQ/L (136-145) Chloride Level 96 MEQ/L (98-107) 97 MEQ/L (98-107) Estimat Glomerular Filtration Rate 78 ML/MIN (>89) 86 ML/MIN (>89) Hemoglobin A1c 8.4 % (4.3-6.0) B-Type Natriuretic Peptide 457 PG/ML (0-100) 443 PG/ML (0-100) Calcium Level 8.2 MG/DL (8.5-10.1) Total Creatine Kinase 26 U/L (39-308) Triglycerides Level 158 MG/DL (42-150) Cholesterol Level 77 MG/DL (120-200) HDL Cholesterol 30.0 MG/DL (40.0-60.0) Imaging Last Impressions Chest X-Ray 07/31/17 0000 Signed Impressions: Service Date/Time: Monday, July 31, 2017 13:12 - CONCLUSION: 1. Findings consistent with near interval resolution of pulmonary edema pattern. 2. Probable very trace bilateral pleural effusions. Nick Alcaraz MD Head CT 07/24/17 1542 Signed Impressions: Service Date/Time: Monday, July 24, 2017 17:17 - CONCLUSION: 1. No acute intracranial abnormalities. Bilateral maxillary and ethmoid sinusitis. 2. Remote lacunar infarct right caudate nucleus. Weston Farrar MD PE at Discharge GENERAL: Well-nourished, well-developed lean male patient. SKIN: Warm and dry. HEAD: Normocephalic. EYES: No scleral icterus. No injection or drainage. NECK: Supple, trachea midline. No JVD or lymphadenopathy. CARDIOVASCULAR: Regular rate and rhythm without murmurs, gallops, or rubs. RESPIRATORY: Breath sounds equal bilaterally. No accessory muscle use. GASTROINTESTINAL: Abdomen soft, non-tender, nondistended. EXTREMITIES: No cyanosis, or edema. NEUROLOGICAL: Awake, alert, and oriented x 3. Non-focal. Hospital Course Patient was admitted to the ICU and underwent hypothermia protocol. He was intubated for airway protection and extubated on July 25. Fortunately he remained neurologically intact. He did have an acute IL. He underwent left heart catheterization on July [address] Rankin showing ischemic cardiomyopathy with EF of 35% and multivessel coronary artery disease. He underwent LAD stenting of a 95% stenosis-bare metal stent on 07/27/[address] Rankin. He was evaluated by CT surgery who did not recommend surgery due to his positive cocaine, and poor target vessels. The patient then underwent PCI to RCA 08/[address] Rankin recommended another left heart catheterization 2 stent in obtuse marginal vessel from the left circumflex however patient declined that. He prefers to follow-up with his concrete technician in [facility]. Echocardiogram did reveal EF of 25%. A lifevest was arranged for the patient. Patient will be continued on asa, coreg, lipitor, plavix, spironolactone, Lasix. His insulin was increased. Patient was counseled on tobacco cessation and avoidance of cocaine. Patient will be discharged home today. He is to follow-up with his primary care physician and with cardiology within 1 week. Pt Condition on Discharge: Stable Discharge Disposition: Discharge Home Discharge Time: > 30 minutes Discharge Instructions DIET: Follow Instructions for: Heart Healthy Diet, Diabetic Diet Activities you can perform: Regular-No Restrictions Follow up Referrals: Cardiology - 1 Week with Julio Cesar Rankin MD PCP Follow-up - 1 Week New Medications: Defibrillator Jacket (Defibrillator Jacket) 1 Ea Device EA EXTERNAL ONCE, #1 Energy = 150 Joules; VT Threshold = 150 BPM; VF Threshold = 200 BPM Use up to 90 days only Potassium Chloride ER (Potassium Chloride ER) 20 Meq Tab 20 MEQ PO DAILY for Electrolyte Replacement, #30 TAB 0 Refills Aspirin (Tgt Aspirin) 81 Mg Chw 162 MG PO DAILY for prevent heart attack, #60 EA Atorvastatin (Atorvastatin) 20 Mg Tab 20 MG PO DAILY for Cholesterol Management, #30 TAB Carvedilol (Coreg) 6.25 Mg Tab 6.25 MG PO Q12HR for build heart muscle, #60 TAB Furosemide (Furosemide) 40 Mg Tab 40 MG PO DAILY for edema, #30 TAB Insulin Detemir Inj (Levemir Inj) 1,000 unit/ 10 ML Vial 12 UNITS SQ Q12HR for Blood Sugar Management for 30 Days, INJECTION Do not mix with any other Insulin. Lisinopril (Lisinopril) 5 Mg Tab 5 MG PO DAILY for build heart muscle, #30 TAB Spironolactone (Aldactone) 50 Mg Tab 50 MG PO BID@,18 for build heart muscle, #30 TAB Sachi Villalobos MD Aug 03, 2017 09:39
== END 2017-08-03 11:35 | disposition home or self-care (01) | DRG 248 ==
LOC: NEPC 15:20 → NEDA 17:49 → HCVI 18:22 → HCPC 07-29 16:45
PROVIDERS: ADMIT Family Medicine; ATTEND Family Medicine
PROC: 5A1945Z Respiratory Ventilation, 24-96 Consecutive Hours (ICD-10-PCS; 2017-07-24)
PROC: 0BH17EZ Insertion of Endotracheal Airway into Trachea, Via Natural or Artificial Opening (ICD-10-PCS; 2017-07-24)
PROC: 06HY33Z Insertion of Infusion Device into Lower Vein, Percutaneous Approach (ICD-10-PCS; 2017-07-24)
PROC: 03HY32Z Insertion of Monitoring Device into Upper Artery, Percutaneous Approach (ICD-10-PCS; 2017-07-24)
PROC: B2151ZZ Fluoroscopy of Left Heart using Low Osmolar Contrast (ICD-10-PCS; 2017-07-27)
PROC: B2111ZZ Fluoroscopy of Multiple Coronary Arteries using Low Osmolar Contrast (ICD-10-PCS; 2017-07-27)
PROC: 4A023N8 Measurement of Cardiac Sampling and Pressure, Bilateral, Percutaneous Approach (ICD-10-PCS; 2017-07-27)
PROC: 02703DZ Dilation of Coronary Artery, One Artery with Intraluminal Device, Percutaneous Approach (ICD-10-PCS; principal; 2017-07-27 12:15)
PROC: 02703DZ Dilation of Coronary Artery, One Artery with Intraluminal Device, Percutaneous Approach (ICD-10-PCS; 2017-08-01)
DX: I46.9 Cardiac arrest, cause unspecified (principal); I50.23 Acute on chronic systolic (congestive) heart failure; I21.4 Non-ST elevation (NSTEMI) myocardial infarction; J96.00 Acute respiratory failure, unspecified whether with hypoxia or hypercapnia; G93.41 Metabolic encephalopathy; I95.9 Hypotension, unspecified; I11.0 Hypertensive heart disease with heart failure; I27.20 Pulmonary hypertension, unspecified; J44.1 Chronic obstructive pulmonary disease with (acute) exacerbation; I25.10 Atherosclerotic heart disease of native coronary artery without angina pectoris; R40.2432 Glasgow coma scale score 3-8, at arrival to emergency department; I49.01 Ventricular fibrillation; E11.649 Type 2 diabetes mellitus with hypoglycemia without coma; E11.65 Type 2 diabetes mellitus with hyperglycemia; E87.6 Hypokalemia; I25.5 Ischemic cardiomyopathy; F14.90 Cocaine use, unspecified, uncomplicated; F17.210 Nicotine dependence, cigarettes, uncomplicated; G40.909 Epilepsy, unspecified, not intractable, without status epilepticus; R15.9 Full incontinence of feces; Z79.4 Long term (current) use of insulin; Z86.73 Personal history of transient ischemic attack (TIA), and cerebral infarction without residual deficits
CPT/HCPCS: 31500; 36600; 70450; 71010; 71020; 80048; 80053; 80061; 80076; 80307; 81001; 82550; 82552; 82805; 82810; 82948; 83036; 83605; 83735; 83880; 84100; 84155; 84484; 85002; 85007; 85025; 85027; 85610; 85730; 86403; 86850; 86900; 86901; 87040; 87081; 87147; 87640; 87641; 92928; 92950; 93005; 93306; 93454; 93460; 94002; 94003; 94150; 94640; 94664; 96374; 99292; C1769; C1876; C1887; C1893; J0282; J0330; J0610; J1644; J1650; J1815; J1940; J1956; J2175; J2250; J2920; J2930; J3010; J3246; J3475; J3480; J7030; J7050; J7060; Q9967